=== PATIENT | male | born 1965 | race Caucasian/White ===

== ENCOUNTER 2016-05-22 11:02 | Day surgery (SDC) | payer BC ==
[2016-05-20 08:47] VITALS: BMI 28.3
[~2016-05-22 11:02] MED LIST: LACTATED RINGERS 1,000 ML IV SCH; LIDOCAINE 1% 20 ML VIAL (10MG/ML) FOR IV START INTRADERMA PRN
[2016-05-22 12:41] VITALS: TEMP 97.1
[2016-05-22] MEDS ORDERED: PROPOFOL 10 MG/ML 20 ML VIAL IV ONE (13:24)
--- NOTE | 2016-05-22 13:58 | P.PCN ---
Date of Procedure: 05/22/16 Procedure(s) Performed: Procedure: Total colonoscopy. Preoperative diagnosis: Screening for neoplasia, patient has family history of colon cancer and history of polyps. Postoperative diagnosis: Mild diverticulosis. Preparation: HalfLytely prep. Sedation: Was provided by anesthesia. Brief clinical history: The patient is a 50-year-old male who is scheduled for this evaluation because of family history of colon cancer in his mother and personal history of polyps. His first exam with me was at around 3-4 years ago when he had polyps removed. His baseline exam was around age 41, prior to moving to this area, and that exam did not show any polyps. The patient is not having any abdominal complaints, bleeding or anemia. Procedure: With the patient on his left lateral decubitus position and after informed consent and adequate sedation, the perianal area was inspected and it did not show any fissures or fistulas. There were no masses felt on digital rectal examination. The Olympus CFQ 160L video colonoscope was then inserted in the rectum in the usual fashion and advanced to the cecum. There was occasional small diverticular orifices seen in the distal sigmoid and few small diverticular orifices seen scattered on the right side but there was no evidence of acute diverticulitis or strictures. The mucosa appeared healthy. No polyps or tumors were seen. I retroflexed the endoscope in the rectum before the endoscope was withdrawn. The patient tolerated the procedure well. Plan: The patient was reassured. Discussed dietary measures. He will follow up with you as planned and I recommended repeat exam in 5 years.
[2016-05-22 14:14] VITALS: BP 130/82; PULSE 56; RESP 18
== END 2016-05-22 14:55 | disposition home or self-care (01) ==
LOC: ORWHC2ENDO 11:02
DX: Z12.11 Encounter for screening for malignant neoplasm of colon (principal); K57.30 Diverticulosis of large intestine without perforation or abscess without bleeding; Z80.0 Family history of malignant neoplasm of digestive organs; Z86.010 Personal history of colon polyps; E78.5 Hyperlipidemia, unspecified; Z79.899 Other long term (current) drug therapy; Z88.5 Allergy status to narcotic agent
CPT/HCPCS: J2704; G0105

== ENCOUNTER → 2016-12-04 | Outpatient (CLI) | payer BC ==
--- NOTE | 2016-12-04 11:37 | CT ---
EXAMINATION TYPE: CT abdomen pelvis wo con DATE OF EXAM: 12/04/2016 COMPARISON: NONE HISTORY: flank pain, hematuria, renal colic CT DLP: 647.7 mGycm Automated exposure control for dose reduction was used. TECHNIQUE: Helical acquisition of images was performed from the lung bases through the pelvis. FINDINGS: Lack of intravenous and oral contrast limits evaluation for the hollow and solid viscera. LUNG BASES: Minimal subsegmental bibasilar atelectasis, right greater than left is appreciated. LIVER/GB: Unremarkable unenhanced morphology. No radiopaque gallstones. PANCREAS: No significant abnormality is seen. SPLEEN: No significant abnormality is seen. ADRENALS: No significant abnormality is seen. KIDNEYS: No evidence of nephrolithiasis or obstructive uropathy. However, there is mild right periure teral fat stranding and suggestion of uroepithelial thickening, limited by overlap anteriorly of the right renal vein and lack of intravenous contrast. This is seen on series 3 image 58 with suggestion of thickening approximately 4 mm that is asymmetric to the left with mild inflammatory stranding. FREE AIR: No free air is visualized RETROPERITONEAL ADENOPATHY: None visualized REPRODUCTIVE ORGANS: Prostate gland is enlarged and heterogenous containing dystrophic calcifications within the central zone. Prostate gland measures at least 5.0 cm. Bilateral fat filled inguinal bill ias are also seen. No superficial inguinal adenopathy is present adjacent to this. URINARY BLADDER: No significant abnormality is seen. PELVIC ADENOPATHY: None visualized. OSSEOUS STRUCTURES: Benign vertebral body hemangioma is seen at L4 as well as smaller vertebral body hemangiomas at T12 and L2. Degenerative disc disease is seen at L5-S1 resulting in at least mild to moderate bilateral neural foraminal stenosis. BOWEL: Sigmoid diverticulosis is present without pericolonic fat stranding to suggest diverticulitis . Appendix is located within the pelvis and is within normal limits of size, partially air-filled. OTHER: Small fat filled umbilical hernia is noted. Minimal calcific atheromatous changes are seen in the abdominal aorta and its branches. Distal abdominal aorta is tortuous as is the right common iliac artery without measurable aneurysm. IMPRESSION: 1. NO EVIDENCE OF HYDRONEPHROSIS OR NEPHROLITHIASIS. THERE IS SUGGESTION OF RIGHT PROXIMAL URETERAL M ILD UROEPITHELIAL THICKENING AND MINIMAL PERIURETERAL FAT STRANDING. CT UROGRAM IS RECOMMENDED FOR FU RTHER EVALUATION TO EVALUATE FOR TRUE UROEPITHELIAL THICKENING VERSUS INCOMPLETE DISTENTION/PERISTALS IS ARTIFACT. 2. ENLARGED AND HETEROGENOUS PROSTATE GLAND.
== END | disposition home or self-care (01) ==
LOC: RADCTMAIN 10:41
PROVIDERS: ATTEND Family Medicine
DX: N40.0 Benign prostatic hyperplasia without lower urinary tract symptoms (principal); N23 Unspecified renal colic
CPT/HCPCS: 74176

== ENCOUNTER → 2016-12-05 | Outpatient (CLI) | payer BC | END | disposition home or self-care (01) | LOC: LABWHC1 10:45 | PROVIDERS: ATTEND Nurse Practitioner Adult Health | DX: R06.00 Dyspnea, unspecified (principal) | CPT/HCPCS: 36415; 83874; 84484; 85379 ==

== ENCOUNTER → 2020-01-25 | Outpatient (CLI) | payer BC ==
[2020-01-25 13:09] LABS: Creatine Kinase MB 1.4 ng/mL (0.0-2.4); Troponin I <0.012 ng/mL (0.000-0.034)
== END | disposition home or self-care (01) ==
LOC: LABWHC1 12:13
PROVIDERS: ATTEND Physician Assistant
DX: R07.9 Chest pain, unspecified (principal)
CPT/HCPCS: 36415; 82550; 82553; 84484

== ENCOUNTER 2020-04-01 10:04 | Inpatient (IN) | payer BC ==
[2020-04-01] MEDS ORDERED: IPRATROPIUM-ALBUTEROL 3 ML NEB INHALATION STA (10:19)
--- NOTE | 2020-04-01 10:26 | ED ---
SOB HPI - General Chief Complaint: Shortness of Breath Stated Complaint: Covid +, 9 days ago Time Seen by Provider: 04/01/20 10:11 Source: patient, RN notes reviewed Mode of arrival: ambulatory Limitations: no limitations - History of Present Illness Initial Comments: This is a 54-year-old male with a history of childhood asthma who states that he was diagnosed with Covid 19 9 days ago, outpatient who states he has been on a treatment protocol beginning progressively worse he is more short of breath has exertional dyspnea with any type of exertion including talking or walking he also is had fevers. He's tried home updrafts without any success. No overt chest pain. the patient is a nonsmoker. He does not get exposed to fumes or anything else. Doesn't complain of modifying factors MD Complaint: shortness of breath - Related Data Home Medications Medication Instructions Recorded Confirmed Aspirin [Adult Low Dose Aspirin EC] 81 mg PO DAILY 05/20/16 04/01/20 Albuterol Sulfate [Proair Hfa] 2 puff INHALATION RT-QID PRN 04/01/20 04/01/20 Lisinopril [Zestril] 10 mg PO DAILY 04/01/20 04/01/20 Sertraline HCl [Zoloft] 100 mg PO DAILY 04/01/20 04/01/20 Simvastatin [Zocor] 20 mg PO HS 04/01/20 04/01/20 Unknown Nebulizer Solution 1 dose INHALATION RT-DAILY PRN 04/01/20 04/01/20 Allergies Allergy/AdvReac Type Severity Reaction Status Date / Time Opioids - Morphine Analogues Allergy Nausea & Verified 04/01/20 10:45 Vomiting Review of Systems ROS Statement: Those systems with pertinent positive or pertinent negative responses have been documented in the HPI. ROS Other: All systems not noted in ROS Statement are negative. Past Medical History Past Medical History: Hyperlipidemia, Hypertension History of Any Multi-Drug Resistant Organisms: None Reported Past Surgical History: Orthopedic Surgery Additional Past Surgical History / Comment(s): rt shoulder arthroscopy, lt knee arthroscopy x2, rt knee arthroscopy, lt foot surgery x2 Past Anesthesia/Blood Transfusion Reactions: No Reported Reaction Past Psychological History: PTSD Smoking Status: Never smoker Past Alcohol Use History: None Reported Past Drug Use History: None Reported - Past Family History Mother Family Medical History: Cancer Additional Family Medical History / Comment(s): colon cancer with metastasis Father Family Medical History: Cancer Additional Family Medical History / Comment(s): oat cell cancer lung General Exam - General Exam Comments Initial Comments: this is a well-developed well-nourished awake alert oriented times 3 male Limitations: no limitations General appearance: alert, anxious ENT exam: Present: mucous membranes dry Respiratory exam: Present: decreased breath sounds Cardiovascular Exam: Present: regular rate, tachycardia Course Vital Signs 04/01/20 04/01/20 04/01/20 10:05 10:08 11:08 Temperature 100.8 F H Pulse Rate 104 H 85 Respiratory 24 20 20 Rate Blood Pressure 129/67 122/88 O2 Sat by Pulse 89 L 95 Oximetry 04/01/20 04/01/20 12:00 13:05 Temperature 102.8 F H Pulse Rate 85 80 Respiratory 20 20 Rate Blood Pressure 107/52 O2 Sat by Pulse 95 93 L Oximetry Medical Decision Making - Medical Decision Making I did discuss findings with the patient and with Dr. Barrett, patient will be admitted for inpatient treatment. Dr. Weaver will be consulted - Lab Data Result diagrams: 04/01/20 10:30 04/01/20 10:30 Lab Results 04/01/20 04/01/20 04/01/20 Range/Units 10:30 10:30 10:30 WBC 10.1 (3.8-10.6) k/uL RBC 5.10 (4.30-5.90) m/uL Hgb 16.6 (13.0-17.5) gm/dL Hct 48.4 (39.0-53.0) % MCV 94.8 (80.0-100.0) fL MCH 32.5 (25.0-35.0) pg MCHC 34.3 (31.0-37.0) g/dL RDW 12.3 (11.5-15.5) % Plt Count 165 (150-450) k/uL MPV 6.9 Neutrophils % 89 % Lymphocytes % 6 % Monocytes % 4 % Eosinophils % 0 % Basophils % 1 % Neutrophils # 8.9 H (1.3-7.7) k/uL Lymphocytes # 0.6 L (1.0-4.8) k/uL Monocytes # 0.4 (0-1.0) k/uL Eosinophils # 0.0 (0-0.7) k/uL Basophils # 0.1 (0-0.2) k/uL PT 10.8 (9.0-12.0) sec INR 1.0 (<1.2) APTT 22.5 (22.0-30.0) sec D-Dimer 0.71 H (<0.60) mg/L FEU Sodium 139 (137-145) mmol/L Potassium 4.4 (3.5-5.1) mmol/L Chloride 102 (98-107) mmol/L Carbon Dioxide 28 (22-30) mmol/L Anion Gap 9 mmol/L BUN 26 H (9-20) mg/dL Creatinine 1.00 (0.66-1.25) mg/dL Est GFR (CKD-EPI)AfAm >90 (>60 ml/min/1.73 sqM) Est GFR (CKD-EPI)NonAf 86 (>60 ml/min/1.73 sqM) Glucose 98 (74-99) mg/dL Plasma Lactic Acid Kenny (0.7-2.0) mmol/L Calcium 9.1 (8.4-10.2) mg/dL Magnesium 1.7 (1.6-2.3) mg/dL Total Bilirubin 0.8 (0.2-1.3) mg/dL AST 44 (17-59) U/L ALT 59 H (4-49) U/L Alkaline Phosphatase 66 (38-126) U/L Lactate Dehydrogenase 1141 H (313-618) U/L Creatine Kinase 41 L (55-170) U/L Troponin I (0.000-0.034) ng/mL C-Reactive Protein 56.2 H (<10.0) mg/L NT-Pro-B Natriuret Pep pg/mL Total Protein 7.0 (6.3-8.2) g/dL Albumin 3.8 (3.5-5.0) g/dL 04/01/20 04/01/20 04/01/20 Range/Units 10:30 10:30 10:30 WBC (3.8-10.6) k/uL RBC (4.30-5.90) m/uL Hgb (13.0-17.5) gm/dL Hct (39.0-53.0) % MCV (80.0-100.0) fL MCH (25.0-35.0) pg MCHC (31.0-37.0) g/dL RDW (11.5-15.5) % Plt Count (150-450) k/uL MPV Neutrophils % % Lymphocytes % % Monocytes % % Eosinophils % % Basophils % % Neutrophils # (1.3-7.7) k/uL Lymphocytes # (1.0-4.8) k/uL Monocytes # (0-1.0) k/uL Eosinophils # (0-0.7) k/uL Basophils # (0-0.2) k/uL PT (9.0-12.0) sec INR (<1.2) APTT (22.0-30.0) sec D-Dimer (<0.60) mg/L FEU Sodium (137-145) mmol/L Potassium (3.5-5.1) mmol/L Chloride (98-107) mmol/L Carbon Dioxide (22-30) mmol/L Anion Gap mmol/L BUN (9-20) mg/dL Creatinine (0.66-1.25) mg/dL Est GFR (CKD-EPI)AfAm (>60 ml/min/1.73 sqM) Est GFR (CKD-EPI)NonAf (>60 ml/min/1.73 sqM) Glucose (74-99) mg/dL Plasma Lactic Acid Kenny 1.5 (0.7-2.0) mmol/L Calcium (8.4-10.2) mg/dL Magnesium (1.6-2.3) mg/dL Total Bilirubin (0.2-1.3) mg/dL AST (17-59) U/L ALT (4-49) U/L Alkaline Phosphatase (38-126) U/L Lactate Dehydrogenase (313-618) U/L Creatine Kinase (55-170) U/L Troponin I <0.012 (0.000-0.034) ng/mL C-Reactive Protein (<10.0) mg/L NT-Pro-B Natriuret Pep 392 pg/mL Total Protein (6.3-8.2) g/dL Albumin (3.5-5.0) g/dL - EKG Data -: EKG Interpreted by Me EKG Comments: sinus rhythm a 91 appear interval 138 QRS duration 90 QT since QTC 380/391 left exodeviation evidence of LVH. - Radiology Data Radiology results: report reviewed (Did review the imaging and report evidence of bilateral infiltrates consistent with viral infection/pneumonitis. No evidence of PE at this time.), image reviewed Disposition Clinical Impression: COVID-19, Viral pneumonia, Hypoxemia, Febrile illness, acute, Failure of out patient treatment Disposition: ADMITTED IP TO THIS [facility] Condition: Fair Referrals: Valente Taylor MD [Primary Care Provider] - 1-2 days
[2020-04-01 10:45] LABS: Basophils # (A) 0.1 k/uL (0-0.2); Basophils % (A) 1 %; Eosinophils % (A) 0 %; HCT 48.4 % (39.0-53.0); HGB 16.6 gm/dL (13.0-17.5); Lymphocytes # (A) 0.6 k/uL (1.0-4.8); Lymphocytes % (A) 6 %; MCH 32.5 pg (25.0-35.0); MCHC 34.3 g/dL (31.0-37.0); MCV 94.8 fL (80.0-100.0); Mean Platelet Volume 6.9; Monocytes # (A) 0.4 k/uL (0-1.0); Monocytes % (A) 4 %; Neutrophils # (A) 8.9 k/uL (1.3-7.7); Neutrophils % (A) 89 %; Platelet Count 165 k/uL (150-450); RDW 12.3 % (11.5-15.5); WBC 10.1 k/uL (3.8-10.6)
[2020-04-01 10:58] LABS: Partial Thromboplastin Time 22.5 sec (22.0-30.0); Prothrombin Time 10.8 sec (9.0-12.0)
[2020-04-01] MEDS ORDERED: ALBUTEROL HFA INHALER INHALATION ONE (11:00)
[2020-04-01 11:01] LABS: ALT 59 U/L (4-49); AST 44 U/L (17-59); African American GFR (CKD) >90 (>60 ml/min/1.73 sqM); Albumin 3.8 g/dL (3.5-5.0); Alkaline Phosphatase 66 U/L (38-126); Anion Gap 9 mmol/L; Blood Urea Nitrogen 26 mg/dL (9-20); C Reactive Protein 56.2 mg/L (<10.0); Calcium 9.1 mg/dL (8.4-10.2); Carbon Dioxide 28 mmol/L (22-30); Chloride 102 mmol/L (98-107); Creatine Kinase 41 U/L (55-170); Glucose 98 mg/dL (74-99); LDH 1141 U/L (313-618); Magnesium 1.7 mg/dL (1.6-2.3); Non-African American GFR(CKD) 86 (>60 ml/min/1.73 sqM); Potassium 4.4 mmol/L (3.5-5.1); Sodium 139 mmol/L (137-145); Total Bilirubin 0.8 mg/dL (0.2-1.3)
[2020-04-01 11:03] LABS: D-Dimer 0.71 mg/L FEU (<0.60)
--- NOTE | 2020-04-01 11:04 | XR ---
EXAMINATION TYPE: XR chest 2V DATE OF EXAM: 04/01/2020 COMPARISON: NONE HISTORY: Shortness of breath and fever TECHNIQUE: Frontal and lateral views of the chest are obtained. FINDINGS: Bilateral airspace disease is present. No pneumothorax or pleural effusion. Cardiac medias tinal silhouette is within normal limits. IMPRESSION: Correlate for pneumonia, follow-up recommended.
[2020-04-01] MEDS ORDERED: ACETAMINOPHEN TAB 500 MG TAB PO STA (12:07)
--- NOTE | 2020-04-01 12:55 | CT ---
EXAMINATION TYPE: CT angio chest DATE OF EXAM: 04/01/2020 COMPARISON: Chest x-ray same date HISTORY: shortness of breath, fever and cough CT DLP: 639.2 mGycm Automated exposure control for dose reduction was used. CONTRAST: CTA scan of the thorax is performed with IV Contrast, patient injected with 100 mL of Isovue 370, pul monary embolism protocol. MIP images are created and reviewed. 3D reconstructed images are created on an independent workstation and reviewed. FINDINGS: LUNGS: The lungs are remarkable for diffuse groundglass opacities which are largely peripheral, there is no concerning parenchymal mass or nodule identified. There is no pleural effusion or pneumothor ax seen. The tracheobronchial tree is patent. AORTA: No additional significant abnormality is seen. MEDIASTINUM: There is satisfactory enhancement of the pulmonary artery and its branches, there is no CT evidence for pulmonary embolism. There are no greater than 1 cm hilar or mediastinal lymph nodes. Some prevascular nodes are present. No pericardial effusion is seen. OTHER: No additional significant abnormality is seen. IMPRESSION: CORRELATE FOR PNEUMONIA, CONSIDER COVID-19 INFECTION
[2020-04-01] MEDS ORDERED: PNEUMONIA PROTOCOL UTILIZED 1 EACH MISC PO PRN (14:14)
[2020-04-01] MEDS ORDERED: SODIUM CHLORIDE 0.9% 1,000 ML IV SCH (14:15)
[2020-04-01] MEDS ORDERED: DEXAMETHASONE SOD PHOSPHATE 4 MG/ML 1 ML VIAL IV STA (14:17)
[2020-04-01] MEDS ORDERED: NALOXONE 0.4 MG/ML 1 ML VIAL IV PRN (15:00)
[2020-04-01] MEDS ORDERED: ONDANSETRON 4 MG/2 ML VIAL IVP PRN (15:00)
[2020-04-01] MEDS ORDERED: IPRATROPIUM-ALBUTEROL 3 ML NEB INHALATION PRN (15:03)
[2020-04-01] MEDS ORDERED: ALBUTEROL HFA INHALER INHALATION PRN (15:05)
--- NOTE | 2020-04-01 15:07 | P.HPIM ---
History of Present Illness H&P Date: 04/01/20 Chief Complaint: dyspnea 54 year old man with history of HTN/HLD, mood disorder, childhood asthma presented for evaluation of worsening cough, dypsnea. 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 Pt says that at the time he was diagnosed he was started on steroid, Zn, Vit C/D, famotidine, and allowed to self quarantine, however, he became progressively more weak with additional symptoms of cough, fevers, chills, sweats, YOUSUF, myalgias, generalized weakness. His took his pulse oximeter reading at home and he was 88% on room air, prompting evaluation in the ER. ROS is otherwise negative for chest pain, palps, syncope/presyncope, abd pain, diarrhea, dysuria, dyschezia, numbness of extremities. In the ER, patient was febrile to 102.8, 119/63, requiring 2L NC for O2 saturation of 93%. On chemistries, he's noted to have elevated LDH to 1141, CRP to 56.2. CXR and CTA demonstrate diffuse GGO and pulmonary opacities concerning for atypical pneumonia. CTA negative for PE. EKG shows NSR with left axis deviation, and LVH. Review of Systems All Systems reviewed and pertinent positives and negatives noted in HPI, all other symptoms are negative Past Medical History Past Medical History: Hyperlipidemia, Hypertension History of Any Multi-Drug Resistant Organisms: None Reported Past Surgical History: Orthopedic Surgery Additional Past Surgical History / Comment(s): rt shoulder arthroscopy, lt knee arthroscopy x2, rt knee arthroscopy, lt foot surgery x2 Past Anesthesia/Blood Transfusion Reactions: No Reported Reaction Past Psychological History: PTSD Smoking Status: Never smoker Past Alcohol Use History: None Reported Past Drug Use History: None Reported - Past Family History Mother Family Medical History: Cancer Additional Family Medical History / Comment(s): colon cancer with metastasis Father Family Medical History: Cancer Additional Family Medical History / Comment(s): oat cell cancer lung Medications and Allergies Home Medications Medication Instructions Recorded Confirmed Type Aspirin [Adult Low Dose Aspirin EC] 81 mg PO DAILY 05/20/16 04/01/20 History Albuterol Sulfate [Proair Hfa] 2 puff INHALATION RT-QID PRN 04/01/20 04/01/20 History Lisinopril [Zestril] 10 mg PO DAILY 04/01/20 04/01/20 History Sertraline HCl [Zoloft] 100 mg PO DAILY 04/01/20 04/01/20 History Simvastatin [Zocor] 20 mg PO HS 04/01/20 04/01/20 History Unknown Nebulizer Solution 1 dose INHALATION RT-DAILY PRN 04/01/20 04/01/20 History Allergies Allergy/AdvReac Type Severity Reaction Status Date / Time Opioids - Morphine Analogues Allergy Nausea & Verified 04/01/20 10:45 Vomiting Physical Exam Osteopathic Statement: *. No significant issues noted on an osteopathic structural exam other than those noted in the History and Physical/Consult. Vitals: Vital Signs Temp Pulse Resp BP Pulse Ox 04/01/20 14:27 98.7 F 65 20 119/63 96 04/01/20 13:05 102.8 F H 80 20 107/52 93 L 04/01/20 12:00 85 20 95 04/01/20 11:08 85 20 122/88 95 04/01/20 10:08 20 04/01/20 10:05 100.8 F H 104 H 24 129/67 89 L Intake and Output 03/31/20 04/01/20 04/01/20 22:59 06:59 14:59 Other: Weight 111.13 kg Gen: awake, alert HEENT: normocephalic, atraumatic, good hearing acuity, moist mucous membranes Resp: good air exchange, breathing comfortably with no accessory muscle use, bilateral posterior crackles in the mid lung olson, no wheezes CVS: good distal perfusion x 4, regular rate and rhythm without murmurs GI: soft, NTTP, ND : no SPT, no CVAT, adler catheter not present MSK: no pitting edema, no clubbing Neuro: non-focal, moving all extremities Psych: cooperative, euthymic mood Results CBC & Chem 7: 04/01/20 10:30 04/01/20 10:30 Labs: Abnormal Lab Results - Last 24 Hours (Table) 04/01/20 04/01/20 04/01/20 Range/Units 10:30 10:30 10:30 Neutrophils # 8.9 H (1.3-7.7) k/uL Lymphocytes # 0.6 L (1.0-4.8) k/uL D-Dimer 0.71 H (<0.60) mg/L FEU BUN 26 H (9-20) mg/dL ALT 59 H (4-49) U/L Lactate Dehydrogenase 1141 H (313-618) U/L Creatine Kinase 41 L (55-170) U/L C-Reactive Protein 56.2 H (<10.0) mg/L Assessment and Plan Assessment: 1. ARDS from COVID 19 Pneumonia 2. Acute Hypoxemic Respiratory Failure 3. Hypertension, essential 4. Hyperlipidemia 5. Asthma without exacerbation 6. Mood Disorder 54 year old man with history of HTN/HLD, asthma, mood disorder who was recently diagnosed with COVID 19 nine days ago presented to the ER with increasing cough, dyspnea, and generalized constitutional symptoms with evidence of multifocal pulmonary opacities and GGO on chest imaging concerning for impending ARDS from COVID 19. Plan: - admit to telemetry, contact, droplet precautions - oxygen PRN - re-start dexamethasone 6mg IV daily - Vit C/D, Zn, Famotidine - albuterol/ipratropium inh q2h PRN - daily CBC, CMP, Mg, CRP, D-Dimer, LDH, Ferritin, Procal - hold off on anti-biotics at this time, low suspicion of superimposed bacterial pneumonia - pulmonary consult re: remdesivir, plasma (likely outside benefit window) - continue home lisinopril, simvastatin - continue home sertraline Full Code enoxaparin 40mg SQ for DVT PPx
[2020-04-01] MEDS: ALBUTEROL HFA INHALER INHALATION SCH ×3 (16:04→23:21)
[2020-04-01] MEDS: ACETAMINOPHEN TAB 325 MG TAB PO PRN (17:07)
[2020-04-01] MEDS: ATORVASTATIN 10 MG TAB PO SCH (20:04)
[2020-04-01] MEDS: FAMOTIDINE 20 MG TAB PO SCH (20:04)
[2020-04-01] MEDS: SERTRALINE 100 MG TAB PO SCH (20:13)
[2020-04-02] MEDS: ALBUTEROL HFA INHALER INHALATION SCH ×5 (04:05→19:46)
[2020-04-02 06:49] LABS: Basophils % (A) 0 %; Eosinophils % (A) 0 %; HCT 42.1 % (39.0-53.0); HGB 14.2 gm/dL (13.0-17.5); Lymphocytes # (A) 0.5 k/uL (1.0-4.8); Lymphocytes % (A) 8 %; MCH 32.2 pg (25.0-35.0); MCHC 33.7 g/dL (31.0-37.0); MCV 95.3 fL (80.0-100.0); Mean Platelet Volume 7.2; Monocytes # (A) 0.3 k/uL (0-1.0); Monocytes % (A) 4 %; Neutrophils # (A) 5.7 k/uL (1.3-7.7); Neutrophils % (A) 86 %; Platelet Count 141 k/uL (150-450); RBC 4.42 m/uL (4.30-5.90); WBC 6.6 k/uL (3.8-10.6)
[2020-04-02] MEDS: ASCORBIC ACID 500 MG TAB PO SCH (08:47)
[2020-04-02] MEDS: lisinopriL 10 MG TAB PO SCH (08:47)
[2020-04-02] MEDS: ASPIRIN 81 MG PO SCH (08:47)
[2020-04-02] MEDS: FAMOTIDINE 20 MG TAB PO SCH ×2 (08:47→21:22)
[2020-04-02] MEDS: CHOLECALCIFEROL 25 MCG (1000 IU) TABLET PO SCH (08:47)
[2020-04-02] MEDS: ENOXAPARIN 40 MG/0.4 ML SYRINGE SQ SCH (08:48)
[2020-04-02] MEDS: ZINC SULFATE 220 MG CAP PO SCH (08:48)
[2020-04-02 08:53] LABS: African American GFR (CKD) 124.9 (60.0-200.0); Albumin 3.3 g/dL (3.80-4.90); Albumin/Globulin Ratio 1.83 (1.60-3.17); Anion Gap 3.5 mmol/L (4.00-12.00); BUN/Creat Ratio 31.43 Ratio (12.00-20.00); C Reactive Protein 6.4 mg/dL (0.0-0.8); Calcium 7.9 mg/dL (8.7-10.3); Carbon Dioxide 26.5 mmol/L (21.6-31.8); Ferritin 918.6 ng/mL (22.0-322.0); Globulin 1.8 g/dL (1.6-3.3); Magnesium 1.7 mg/dL (1.5-2.4); Non-African American GFR(CKD) 107.7 (60.0-200.0); Potassium 4.2 mmol/L (3.5-5.5); Total Bilirubin 0.5 mg/dL (0.3-1.2); Total Protein 5.1 g/dL (6.2-8.2)
[2020-04-02] MEDS ORDERED: DEXAMETHASONE SOD PHOSPHATE 10 MG/ML 1 ML VIAL IV SCH (09:00)
[2020-04-02] MEDS ORDERED: SERTRALINE 100 MG TAB PO SCH (09:00)
[2020-04-02] MEDS: ACETAMINOPHEN TAB 325 MG TAB PO PRN (13:24)
[2020-04-02] MEDS: COLCHICINE 0.6 MG EACH PO SCH ×2 (13:25→21:22)
--- NOTE | 2020-04-02 13:43 | P.CNPUL ---
History of Present Illness Consult date: 04/02/20 Requesting physician: Ryann Barrett Reason for consult: dyspnea, cough, hypoxemia, pneumonia, abnormal CXR/CT Chief complaint: Shortness of breath History of present illness: Pulmonary consult dated 04/02/2020. This is a 54-year-old male seen today, on April 02, for shortness of breath, a nd COVID 19 pneumonia. The patient hasn't been feeling well for about 10 or 11 days. He tested positive a number of days ago, about 10, but was basically just using breathing treatments at home, as well as fwxs-pol-jgnthxy medications. His who is a respiratory therapist also was positive for the virus. More recently, he started having greater shortness of breath, especially on exertion. In addition, he did have some chest tightness, cough, with minimal phlegm production. He also had high temperatures up to 103. For that reason, he came into the hospital to be evaluated. His chest x-ray and a CT angiogram were both abnormal. The patient's medications currently include convalescent plasma, Decadron, vitamin C, vitamin D3, zinc, melatonin, Pepcid, and colchicine. He is not a candidate for remdesivir. He has a history of hyperlipidemia, and hypertension. He is a lifelong nonsmoker. Currently, the patient's on 2-3 L nasal cannula. He seems reasonably comfortable. Review of Systems REVIEW OF SYSTEMS: CONSTITUTIONAL: Fever, up to 103.] NEUROLOGIC: [ Negative.] HEENT: [ Negative.] CARDIAC: [Negative.] PULMONARY: Shortness of breath and cough. GI: [Negative.] : [Negative.] RHEUMATOLOGIC: [ Negative.] IMMUNOLOGIC: [ Negative.] ENDOCRINE: [Negative. ] DERMATOLOGIC: [Negative.] Past Medical History Past Medical History: Hyperlipidemia, Hypertension History of Any Multi-Drug Resistant Organisms: None Reported Past Surgical History: Orthopedic Surgery Additional Past Surgical History / Comment(s): rt shoulder arthroscopy, lt knee arthroscopy x2, rt knee arthroscopy, lt foot surgery x2 Past Anesthesia/Blood Transfusion Reactions: No Reported Reaction Past Psychological History: PTSD Smoking Status: Never smoker Past Alcohol Use History: None Reported Past Drug Use History: None Reported - Past Family History Mother Family Medical History: Cancer Additional Family Medical History / Comment(s): colon cancer with metastasis Father Family Medical History: Cancer Additional Family Medical History / Comment(s): oat cell cancer lung Medications and Allergies Home Medications Medication Instructions Recorded Confirmed Type Aspirin [Adult Low Dose Aspirin EC] 81 mg PO DAILY 05/20/16 04/01/20 History Albuterol Sulfate [Proair Hfa] 2 puff INHALATION RT-QID PRN 04/01/20 04/01/20 History Lisinopril [Zestril] 10 mg PO DAILY 04/01/20 04/01/20 History Sertraline HCl [Zoloft] 100 mg PO DAILY 04/01/20 04/01/20 History Simvastatin [Zocor] 20 mg PO HS 04/01/20 04/01/20 History Unknown Nebulizer Solution 1 dose INHALATION RT-DAILY PRN 04/01/20 04/01/20 History Allergies Allergy/AdvReac Type Severity Reaction Status Date / Time Opioids - Morphine Analogues Allergy Nausea & Verified 04/01/20 10:45 Vomiting Physical Exam Osteopathic Statement: *. No significant issues noted on an osteopathic structural exam other than those noted in the History and Physical/Consult. Vitals: Vital Signs Temp Pulse Pulse Resp BP BP Pulse Ox 04/02/20 09:20 98.3 F 54 L 18 131/75 94 L 04/02/20 04:58 97.6 F 51 L 15 109/55 94 L 04/02/20 01:43 97.5 F L 55 L 15 135/82 99 04/01/20 21:57 98.1 F 71 15 109/58 93 L 04/01/20 19:50 16 04/01/20 16:15 98.8 F 62 18 119/73 96 04/01/20 14:27 98.7 F 65 20 119/63 96 Intake and Output 04/01/20 04/02/20 04/02/20 22:59 06:59 14:59 Intake Total 240 1500 Balance 240 1500 Intake: Intake, IV Titration 1200 Amount Sodium Chloride 0.9% 1, 1200 000 ml @ 100 mls/hr IV . Q10H [facility] Rx#:[id number] Oral 240 300 Other: Voiding Method Toilet Weight 111.13 kg No acute distress, oriented 3. Nasal O2 in place at 2 L/m. No evidence of conversational dyspnea, use of accessory muscles, or audible wheezing. HEENT examination is grossly unremarkable. Mucous membranes are moist. No oral lesions. Neck supple. Full range of motion. No adenopathy thyromegaly or neck vein distention. Cardiovascular examination reveals regular rhythm rate. S1-S2 normal. No S3 or S4. No discernible murmur noted. Heart sounds are distant. Lungs reveal coarse bilateral rhonchi and a few scattered crackles. There are no wheezes. Breath sounds equal bilaterally. He coughs on deep inspiration. Abdomen soft bowel sounds are heard. No masses or tenderness. Extremities are intact. No cyanosis clubbing or edema. Skin is without rash or lesion. Neurologic examination is brief but nonfocal. Results - Laboratory Findings CBC and BMP: 04/02/20 06:23 04/02/20 06:23 PT/INR, D-dimer PT 10.8 sec (9.0-12.0) 04/01/20 10:30 INR 1.0 (<1.2) 04/01/20 10:30 D-Dimer 0.62 mg/L FEU (<0.60) H 04/02/20 06:23 Abnormal lab findings: Abnormal Labs 04/01/20 04/01/20 04/01/20 10:30 10:30 10:30 Plt Count Neutrophils # 8.9 H Lymphocytes # 0.6 L D-Dimer 0.71 H Chloride Anion Gap BUN 26 H BUN/Creatinine Ratio Calcium Ferritin 1349.0 H ALT 59 H Lactate Dehydrogenase 1141 H Creatine Kinase 41 L C-Reactive Protein 56.2 H Total Protein Albumin Procalcitonin 04/01/20 04/02/20 04/02/20 10:30 06:23 06:23 Plt Count 141 L Neutrophils # Lymphocytes # 0.5 L D-Dimer Chloride Anion Gap BUN BUN/Creatinine Ratio Calcium Ferritin ALT Lactate Dehydrogenase Creatine Kinase C-Reactive Protein Total Protein Albumin Procalcitonin 0.21 H 0.30 H 04/02/20 04/02/20 06:23 06:23 Plt Count Neutrophils # Lymphocytes # D-Dimer 0.62 H Chloride 111 H Anion Gap 3.50 L BUN BUN/Creatinine Ratio 31.43 H Calcium 7.9 L Ferritin 918.6 H ALT 65 H Lactate Dehydrogenase 304 H Creatine Kinase C-Reactive Protein 6.4 H Total Protein 5.1 L Albumin 3.30 L Procalcitonin - Diagnostic Findings Chest x-ray: image reviewed CT scan - chest: image reviewed Assessment and Plan Assessment: Acute hypoxemic respiratory failure secondary to COVID 19 pneumonia/pneumonitis. History of hypertension. History of hyperlipidemia. Lifelong nonsmoker. History of mild asthma. History of depression. Plan: Plan dated 04/02/2020. The patient is outside the window for remdesivir. The patient can get, some plasma, either one or 2 doses. In addition, the patient should get Decadron 6 mg a day either orally or IV for 10 days, vitamin C, vitamin D3, and zinc. In addition, an albuterol inhaler as appropriate. The patient will also get Pepcid and melatonin as well as colchicine 0.6 mg twice a day. Additional recommendations and suggestions are forthcoming. We will continue to follow closely. We'll also monitor inflammatory markers. The patient's chronic me dical problems such as hypertension and hyperlipidemia will be treated aggressively. No need for antibiotics at this time. We'll continue to evaluate oxygen saturations and titrate oxygen appropriately. No additional recommendations are made and prognosis is guarded. Time with Patient: Greater than 30
[2020-04-02] MEDS: dexAMETHasone 2 MG TAB PO SCH (17:34)
--- NOTE | 2020-04-02 19:38 | P.PN ---
Subjective Progress Note Date: 04/02/20 (beth charting seen at 1520) Principal diagnosis: shortness of breath Patient is a 54-year-old male with hypertension, dyslipidemia, mood disorder, and childhood asthma who presented to the emergency department with worsening cough and dyspnea. Patient had been diagnosed with COVID 19 9 days ago after his who is a respiratory therapist developed symptoms. At that point in time he was started on steroids, zinc, vitamin C and D, and famotidine. He became significantly more weak with increased symptoms and his room air pulse ox at home was 88% and he therefore presented to the ER. In the ER he underwent an extensive evaluation. Her initial vital signs showed a temperature of 100.8, pulse of 104, and pulse ox 89% on room air. Chest x-ray showed bilat eral airspace disease. CT of the chest did not demonstrate any pulmonary embolism but did again show pneumonia consistent with Covid 19 infection. He was admitted and continued on dexamethasone, vitamin C, vitamin D, zinc, Pepcid, and melatonin. Pulmonary was consulted. They felt he was out of the window for him to severe but did great with convalescent plasma. They also started him on colchicine. Patient seen and examined at bedside. He continues to feel short of breath, have a cough, and have some chest discomfort when coughing. He denies any nausea, vomiting, or diarrhea. He still reports poor oral intake. I offered to call his to update her however he declined. General: Ill-appearing, no distress, appears at stated age Derm: warm, dry Head: atraumatic, normocephalic, symmetric Eyes: EOMI, no lid lag, anicteric sclera Mouth: no lip lesion, mucus membranes moist Cardiovascular: S1S2 reg, no murmur, positive posterior tibial pulse bilateral, Lungs: Coarse breath sounds bilateral bilateral, no rhonchi, no rales , no accessory muscle use Abdominal: soft, nontender to palpation, no guarding, no appreciable organomegaly Ext: no gross muscle atrophy, no edema, no contractures Neuro: CN II-XI grossly intact, no focal neuro deficits Psych: Alert, oriented, appropriate affect Covid 19 pneumonia, acute hypoxic respiratory failure -Continue with vitamin C and D, zinc, famotidine, and dexamethasone and pulmonary recommendations: Convalescent plasma, colchicine -Continue to follow Covid labs -No antibiotics with low suspicion for superimposed bacterial pneumonia -Wean O2 as able Hypertension, controlled -Continue lisinopril -Follow blood pressures Dyslipidemia -Statin Thrombocytopenia -Suspect reactive -Follow CBC Chronic: Asthma without exacerbation Mood disorder DVT prophylaxis: Lovenox Discussed with: Patient, nursing. Offered to call however patient declined Anticipated discharge: 3-[address]: Home A total of 35 minutes was spent on the care of this complex patient more than 50% of the time was spent in counseling and care coordination. Objective - Vital Signs Vital signs: Vital Signs Temp 98.2 F 04/02/20 17:33 Pulse 56 L 04/02/20 17:33 Resp 18 04/02/20 17:33 BP 124/73 04/02/20 17:33 Pulse Ox 96 04/02/20 17:33 Intake & Output 04/01/20 04/02/20 04/02/20 18:59 06:59 18:59 Intake Total 240 1500 3000 Balance 240 1500 3000 Weight 111.13 kg Intake: Intake, IV Titration 1200 Amount Sodium Chloride 0.9% 1, 1200 000 ml @ 100 mls/hr IV . Q10H [facility] Rx#:[id number] Oral [id number] Blood Product 0 Ffp Pher Conval Covid19 0 Acda 2 Unit [id number] Other: Voiding Method Toilet # Voids 3 - Labs CBC & Chem 7: 04/02/20 06:23 04/02/20 06:23 Labs: Abnormal Lab Results - Last 24 Hours (Table) 04/02/20 04/02/20 04/02/20 Range/Units 06:23 06:23 06:23 Plt Count 141 L (150-450) k/uL Lymphocytes # 0.5 L (1.0-4.8) k/uL D-Dimer 0.62 H (<0.60) mg/L FEU Chloride (96-109) mmol/L Anion Gap (4.00-12.00) mmol/L BUN/Creatinine Ratio (12.00-20.00) Ratio Calcium (8.7-10.3) mg/dL Ferritin (22.0-322.0) ng/mL ALT (10-49) U/L Lactate Dehydrogenase (120-246) U/L C-Reactive Protein (0.0-0.8) mg/dL Total Protein (6.2-8.2) g/dL Albumin (3.80-4.90) g/dL Procalcitonin 0.30 H (0.02-0.09) ng/mL 04/02/20 Range/Units 06:23 Plt Count (150-450) k/uL Lymphocytes # (1.0-4.8) k/uL D-Dimer (<0.60) mg/L FEU Chloride 111 H (96-109) mmol/L Anion Gap 3.50 L (4.00-12.00) mmol/L BUN/Creatinine Ratio 31.43 H (12.00-20.00) Ratio Calcium 7.9 L (8.7-10.3) mg/dL Ferritin 918.6 H (22.0-322.0) ng/mL ALT 65 H (10-49) U/L Lactate Dehydrogenase 304 H (120-246) U/L C-Reactive Protein 6.4 H (0.0-0.8) mg/dL Total Protein 5.1 L (6.2-8.2) g/dL Albumin 3.30 L (3.80-4.90) g/dL Procalcitonin (0.02-0.09) ng/mL Microbiology - Last 24 Hours (Table) 04/01/20 10:10 Blood Culture - Preliminary Blood No Growth after 24 hours 04/01/20 10:30 Blood Culture - Preliminary Blood No Growth after 24 hours
[2020-04-02] MEDS: MELATONIN 5 MG TABLET PO SCH (21:22)
[2020-04-02] MEDS: ATORVASTATIN 10 MG TAB PO SCH (21:22)
[2020-04-02] MEDS: SERTRALINE 100 MG TAB PO SCH (21:22)
[2020-04-03] MEDS: ALBUTEROL HFA INHALER INHALATION SCH ×6 (00:02→19:58)
[2020-04-03] MEDS: ENOXAPARIN 40 MG/0.4 ML SYRINGE SQ SCH (09:05)
[2020-04-03] MEDS: ASCORBIC ACID 500 MG TAB PO SCH (09:05)
[2020-04-03] MEDS: COLCHICINE 0.6 MG EACH PO SCH ×2 (09:05→21:24)
[2020-04-03] MEDS: dexAMETHasone 2 MG TAB PO SCH (09:05)
[2020-04-03] MEDS: ZINC SULFATE 220 MG CAP PO SCH (09:05)
[2020-04-03] MEDS: ASPIRIN 81 MG PO SCH (09:05)
[2020-04-03] MEDS: lisinopriL 10 MG TAB PO SCH (09:05)
[2020-04-03] MEDS: FAMOTIDINE 20 MG TAB PO SCH ×2 (09:05→21:24)
[2020-04-03] MEDS: CHOLECALCIFEROL 25 MCG (1000 IU) TABLET PO SCH (09:05)
[2020-04-03 09:24] LABS: Basophils # (A) 0.01 X 10*3/uL (0.00-0.10); Basophils % (A) 0.1 %; Eosinophils # (A) 0 X 10*3/uL (0.04-0.35); Eosinophils % (A) 0 %; HGB 14.3 g/dL (13.0-17.0); Lymphocytes % (A) 7.6 %; MCH 32.1 pg (27.0-32.0); MCV 94.2 fL (80.0-97.0); Mean Platelet Volume 10.1 fL (9.5-12.2); Monocytes # (A) 0.38 X 10*3/uL (0.20-1.00); Monocytes % (A) 4.1 %; Neutrophils # (A) 8.04 X 10*3/uL (1.80-7.70); Neutrophils % (A) 87.5 %; Platelet Count 178 X 10*3/uL (140-440); RBC 4.46 X 10*6/uL (4.40-5.60); RDW 11.8 % (11.5-14.5); WBC 9.19 X 10*3/uL (4.50-10.00)
[2020-04-03 10:13] LABS: African American GFR (CKD) 124.9 (60.0-200.0); Albumin 3.7 g/dL (3.80-4.90); Albumin/Globulin Ratio 1.85 (1.60-3.17); BUN/Creat Ratio 28.57 Ratio (12.00-20.00); Calcium 8.9 mg/dL (8.7-10.3); Ferritin 1097.6 ng/mL (22.0-322.0); Magnesium 1.8 mg/dL (1.5-2.4); Non-African American GFR(CKD) 107.7 (60.0-200.0); Potassium 4.3 mmol/L (3.5-5.5); Total Bilirubin 0.5 mg/dL (0.3-1.2); Total Protein 5.7 g/dL (6.2-8.2)
--- NOTE | 2020-04-03 13:04 | P.PN ---
Subjective Progress Note Date: 04/03/20 (delayed charting seen at 0915) Principal diagnosis: shortness of breath Patient is a 54-year-old male with hypertension, dyslipidemia, mood disorder, and childhood asthma who presented to the emergency department with worsening cough and dyspnea. Patient had been diagnosed with COVID 19 9 days ago after his who is a respiratory therapist developed symptoms. At that point in time he was started on steroids, zinc, vitamin C and D, and famotidine. He became significantly more weak with increased symptoms and his room air pulse ox at home was 88% and he therefore presented to the ER. In the ER he underwent an extensive evaluation. Her initial vital signs showed a temperature of 100.8, pulse of 104, and pulse ox 89% on room air. Chest x-ray showed bilat eral airspace disease. CT of the chest did not demonstrate any pulmonary embolism but did again show pneumonia consistent with Covid 19 infection. He was admitted and continued on dexamethasone, vitamin C, vitamin D, zinc, Pepcid, and melatonin. Pulmonary was consulted. They felt he was out of the window for remdisivir but did order convalescent plasma. They also started him on colchicine. Patient seen and examined at bedside. He states he feels the same yesterday. He continues to have shortness of breath, cough, body aches, and fatigue. He denies any nausea or vomiting. Denies diarrhea. States he is eating and drinking well. General: Ill-appearing, no distress, appears at stated age Derm: warm, dry Head: atraumatic, normocephalic, symmetric Eyes: EOMI, no lid lag, anicteric sclera Mouth: no lip lesion, mucus membranes dry Cardiovascular: S1S2 reg, no murmur, positive posterior tibial pulse bilateral, Lungs: Coarse breath sounds bilateral bilateral, no rhonchi, no rales , no accessory muscle use Abdominal: soft, nontender to palpation, no guarding, no appreciable orga nomegaly Ext: no gross muscle atrophy, no edema, no contractures Neuro: CN II-XI grossly intact, no focal neuro deficits Psych: Alert, oriented, appropriate affect Covid 19 pneumonia, acute hypoxic respiratory failure -Continue with vitamin C and D, zinc, famotidine, and dexamethasone (started ) - pulmonary recommendations appreciated: Convalescent plasma administered 04/02, colchicine started 04/02 -Continue to follow Covid labs -No antibiotics with low suspicion for superimposed bacterial pneumonia -Wean O2 as able currently requiring 3 L Hypertension, controlled -Continue lisinopril -Follow blood pressures Dyslipidemia -Statin Thrombocytopenia -Suspect reactive -Follow CBC Chronic: Asthma without exacerbation Mood disorder DVT prophylaxis: Lovenox Discussed with: Patient, nursing. Anticipated discharge: 1-[address]: Home A total of 35 minutes was spent on the care of this complex patient more than 50% of the time was spent in counseling and care coordination. Objective - Vital Signs Vital signs: Vital Signs Temp 98.7 F 04/03/20 10:00 Pulse 60 04/03/20 10:00 Resp 18 04/03/20 10:00 BP 134/81 04/03/20 10:00 Pulse Ox 95 04/03/20 10:00 Intake & Output 04/02/20 04/03/20 04/03/20 18:59 06:59 18:59 Intake Total 3000 300 Balance 3000 300 Intake: Oral 3000 300 Blood Product 0 Ffp Pher Conval Covid19 0 Acda 2 Unit [id number] Other: Voiding Method Toilet Toilet # Voids 3 1 - Labs CBC & Chem 7: 04/03/20 05:39 04/03/20 05:39 Labs: Abnormal Lab Results - Last 24 Hours (Table) 04/03/20 04/03/20 04/03/20 Range/Units 05:39 05:39 05:39 MCH 32.1 H (27.0-32.0) pg Immature Gran # 0.06 H (0.00-0.04) X 10*3/uL Neutrophils # 8.04 H (1.80-7.70) X 10*3/uL Lymphocytes # 0.70 L (0.90-5.00) X 10*3/uL Eosinophils # 0 L (0.04-0.35) X 10*3/uL BUN/Creatinine Ratio 28.57 H (12.00-20.00) Ratio Glucose 117 H (70-110) mg/dL Ferritin 1097.6 H (22.0-322.0) ng/mL AST 75 H (14-35) U/L ALT 176 H (10-49) U/L Lactate Dehydrogenase 404 H (120-246) U/L C-Reactive Protein 3.0 H (0.0-0.8) mg/dL Total Protein 5.7 L (6.2-8.2) g/dL Albumin 3.70 L (3.80-4.90) g/dL Procalcitonin 0.19 H (0.02-0.09) ng/mL Microbiology - Last 24 Hours (Table) 04/01/20 10:10 Blood Culture - Preliminary Blood No Growth after 48 hours 04/01/20 10:30 Blood Culture - Preliminary Blood No Growth after 48 hours 04/02/20 20:29 Gram Stain - Final Sputum Sputum Culture - Preliminary
--- NOTE | 2020-04-03 13:50 | CDI ---
Documentation Clarification Form Date: 04/03/2020 01:38:35 PM From: Leatha WarrenLingURIEL moreau, CCDS Admit Date: 04/01/2020 02:14:00 PM Patient Name: Jag Davis Visit Number: [id number] Discharge Date: ATTENTION: The Clinical Documentation Specialists (CDI) and [facility] Coding Staff appreciate your assistance in clarifying documentation. Please respond to the clarification below the line at the bottom and electronically sign. The CDI & [facility] Coding staff will review the response and follow-up if needed. Please note: Queries are made part of the Legal Health Record. If you have any questions, please contact the author of this message via ITS. Dr. Jag Weaver: Asthma is documented in the 04/01 ED Note as "History of childhood asthma". Per the 04/01 History & Physical: "Asthma without exacerbation." Per the 04/02 Pulmonary Consult: "History of mild asthma." History/risk factors: Hypertension, Hyperlipidemia, Asthma, Clinical Indicators: Presented to the ED on 04/01 with a history of childhood asthma who states that he was diagnosed with COVID-19 9 days ago. He has been on outpatient treatment, progressively worse with more short of breath, exertional dyspnea with any type of exertion including talking or walking and he also has had fevers. He has tried home updrafts without any success. Non-smoker. VS 04/01: T 100.8^, P 104^, R 24 (SOB), BP 129/67, PO 89 RA BMI: 34.2 LAB: Neut 8.9^, Lymph 0.6*, D Dimer 0.71^, BUN 26^, Ferritin 1349.0^, ALT 59^, LDH 1141^, Cr Kinase 41*, CRP 56.2^, Procalcitonin 0.21^ RAD: 04/01 CXR: Correlate for pneumonia. 04/01 CT Chest: Correlate for pneumonia, consider COVID-19. Treatment 04/01: INH Ventolin, IV fluid 1,000 mls @ 100 mls/hr q10, IV Decadron, Vit C, Vit D3, Lovenox sq, po Orazinc, po Hexadrol, po Melatonin, O2 2Lnc - 3Lnc. In your professional opinion, can you please further specify the following, if known? Asthma without Exacerbation, please specify severity: Mild intermittent Mild persistent Other, please specify: Unable to determine (Last Revision: May 2017) ___Unable to determine _ MTDD
--- NOTE | 2020-04-03 16:49 | P.PN ---
Subjective Progress Note Date: 04/03/20 Principal diagnosis: Dyspnea, cough, hypoxemia, pneumonia abnormal chest x-ray This is a 54-year-old male seen today, on April 02, for shortness of breath, and COVID 19 pneumonia. The patient hasn't been feeling well for about 10 or 11 days. He tested positive a number of days ago, about 10, but was basically just using breathing treatments at home, as well as igbx-zgn-aaugafo medications. His who is a respiratory therapist also was positive for the virus. More recently, he started having greater shortness of breath, especially on exertion. In addition, he did have some chest tightness, cough, with minimal phlegm production. He also had high temperatures up to 103. For that reason, he came into the hospital to be evaluated. His chest x-ray and a CT angiogram were both abnormal. The patient's medications currently include convalescent plasma, Decadron, vitamin C, vitamin D3, zinc, melatonin, Pepcid, and colchicine. He is not a candidate for remdesivir. He has a history of hyperlipidemia, and hypertension. He is a lifelong nonsmoker. Currently, the patient's on 2-3 L nasal cannula. He seems reasonably comfortable. On 04/03/2020 patient seen in follow-up on medical floor, he continues on Remdesivir for acute COVID 19 pneumonitis, today is day 2 of treatment, he received 1 unit of convalescent plasma, we'll order second unit for him today, breathing comfortably, resting quietly in bed. 2 L of oxygen his pulse ox of 95%, his been afebrile, vital signs have been stable. His labs have been reviewed, pro-calcitonin level is low at 0.19, his inflammatory markers are improving, LDH is down to 404, and CRP down to 3.0, electrolytes and renal profile are unremarkable. D-dimer 0.56 Objective - Vital Signs Vital signs: Vital Signs Temp 98.6 F 04/03/20 15:24 Pulse 61 04/03/20 15:24 Resp 16 04/03/20 15:24 BP 115/74 04/03/20 15:24 Pulse Ox 95 04/03/20 10:00 Intake & Output 04/02/20 04/03/20 04/03/20 18:59 06:59 18:59 Intake Total 3000 300 214 Balance 3000 300 214 Intake: Oral 3000 300 Blood Product 0 214 Ffp Pher Conval Covid19 0 Acda 2 Unit [id number] Ffp Pher Conval Covid19 214 Acda 2 Unit [id number] Other: Voiding Method Toilet Toilet # Voids 3 1 - Exam GENERAL EXAM: Alert, very pleasant, 54-year-old white male, on 2 L of oxygen the pulse ox of 95% comfortable in no apparent distress. HEAD: Normocephalic/atraumatic. EYES: Normal reaction of pupils, equal size. Conjunctiva pink, sclera white. NOSE: Clear with pink turbinates. THROAT: No erythema or exudates. NECK: No masses, no JVD, no thyroid enlargement, no adenopathy. CHEST: No chest wall deformity. Symmetrical expansion. LUNGS: Equal air entry with no crackles, wheeze, rhonchi or dullness. CVS: Regular rate and rhythm, normal S1 and S2, no gallops, no murmurs, no rubs ABDOMEN: Soft, nontender. No hepatosplenomegaly, normal bowel sounds, no guarding or rigidity. EXTREMITIES: No clubbing, no edema, no cyanosis, 2+ pulses and upper and lower extremities. MUSCULOSKELETAL: Muscle strength and tone normal. SPINE: No scoliosis or deformity SKIN: No rashes CENTRAL NERVOUS SYSTEM: Alert and oriented -3. No focal deficits, tone is normal in all 4 extremities. PSYCHIATRIC: Alert and oriented -3. Appropriate affect. Intact judgment and insight. - Labs CBC & Chem 7: 04/03/20 05:39 04/03/20 05:39 Labs: Abnormal Lab Results - Last 24 Hours (Table) 04/03/20 04/03/20 04/03/20 Range/Units 05:39 05:39 05:39 MCH 32.1 H (27.0-32.0) pg Immature Gran # 0.06 H (0.00-0.04) X 10*3/uL Neutrophils # 8.04 H (1.80-7.70) X 10*3/uL Lymphocytes # 0.70 L (0.90-5.00) X 10*3/uL Eosinophils # 0 L (0.04-0.35) X 10*3/uL BUN/Creatinine Ratio 28.57 H (12.00-20.00) Ratio Glucose 117 H (70-110) mg/dL Ferritin 1097.6 H (22.0-322.0) ng/mL AST 75 H (14-35) U/L ALT 176 H (10-49) U/L Lactate Dehydrogenase 404 H (120-246) U/L C-Reactive Protein 3.0 H (0.0-0.8) mg/dL Total Protein 5.7 L (6.2-8.2) g/dL Albumin 3.70 L (3.80-4.90) g/dL Procalcitonin 0.19 H (0.02-0.09) ng/mL Microbiology - Last 24 Hours (Table) 04/01/20 10:10 Blood Culture - Preliminary Blood No Growth after 48 hours 04/01/20 10:30 Blood Culture - Preliminary Blood No Growth after 48 hours 04/02/20 20:29 Gram Stain - Final Sputum Sputum Culture - Preliminary Assessment and Plan Plan: Assessment: #1. Acute hypoxemic respiratory failure secondary to COVID 19 pneumonitis, started on Remdesivir treatment on 04/02/2020, patient is status post transfusion of one unit of convalescent plasma his second unit was ordered today on 04/03/2020 in addition to oral Decadron, Colchicine, vitamins, and prophylactic dose of Lovenox #2. Elevated inflammatory markers related to acute viral pneumonia secondary to COVID 19 infection #3. Attention #4. Hyperlipidemia #5. Never smoker #6. History of childhood asthma, unspecified Plan: Continue current dose Decadron, continue with Remdesivir, continue prophylactic dose Lovenox, will to seen, vitamins, we'll give the patient second dose of convalescent plasma. D-dimer, inflammatory markers have been noted, and are trending down. We'll continue to closely follow clinical course, and make recommendations. Weaning FiO2, follow-up chest x-ray I performed a history & physical examination of the patient and discussed their management with my nurse practitioner, Perla Chung. I reviewed the nurse practitioner's note and agree with the documented findings and plan of care. Lung sounds are positive for diminished breath sounds. The findings and the impression was discussed with the patient. I attest to the documentation by the nurse practitioner. Time with Patient: Less than 30
[2020-04-03] MEDS: ATORVASTATIN 10 MG TAB PO SCH (21:24)
[2020-04-03] MEDS: MELATONIN 5 MG TABLET PO SCH (21:24)
[2020-04-03] MEDS: SERTRALINE 100 MG TAB PO SCH (21:24)
[2020-04-04] MEDS: ALBUTEROL HFA INHALER INHALATION SCH ×4 (01:19→11:38)
[2020-04-04] MEDS: ACETAMINOPHEN TAB 325 MG TAB PO PRN (05:23)
[2020-04-04] MEDS: lisinopriL 10 MG TAB PO SCH (07:20)
[2020-04-04] MEDS: FAMOTIDINE 20 MG TAB PO SCH (07:20)
[2020-04-04] MEDS: ASPIRIN 81 MG PO SCH (07:20)
[2020-04-04] MEDS: ENOXAPARIN 40 MG/0.4 ML SYRINGE SQ SCH (07:20)
[2020-04-04] MEDS: ASCORBIC ACID 500 MG TAB PO SCH (07:21)
[2020-04-04] MEDS: ZINC SULFATE 220 MG CAP PO SCH (07:21)
[2020-04-04] MEDS: dexAMETHasone 2 MG TAB PO SCH (07:21)
[2020-04-04] MEDS: CHOLECALCIFEROL 25 MCG (1000 IU) TABLET PO SCH (07:21)
[2020-04-04] MEDS: COLCHICINE 0.6 MG EACH PO SCH (07:21)
--- NOTE | 2020-04-04 07:56 | XR ---
Area EXAMINATION TYPE: XR chest 1V portable DATE OF EXAM: 04/04/2020 HISTORY: Shortness of breath. COMPARISON: 04/01/2020 TECHNIQUE: Single view of the chest is submitted. FINDINGS: Demonstrated are scattered senescent parenchymal change. Perihilar and basilar infiltrates remain essentially unchanged. The heart is stable. Hilar and mediastinal structures are within normal limits. Degenerative changes are seen of the dorsal spine. IMPRESSION: 1. Perihilar and basilar infiltrates remain essentially unchanged.
[2020-04-04 09:16] LABS: Basophils # (A) 0.01 X 10*3/uL (0.00-0.10); Basophils % (A) 0.1 %; Eosinophils # (A) 0 X 10*3/uL (0.04-0.35); Eosinophils % (A) 0 %; HCT 41.3 % (39.6-50.0); HGB 13.8 g/dL (13.0-17.0); Lymphocytes # (A) 1.29 X 10*3/uL (0.90-5.00); Lymphocytes % (A) 14.7 %; MCH 31.9 pg (27.0-32.0); MCHC 33.4 g/dL (32.0-37.0); MCV 95.6 fL (80.0-97.0); Mean Platelet Volume 9.6 fL (9.5-12.2); Monocytes # (A) 0.48 X 10*3/uL (0.20-1.00); Monocytes % (A) 5.5 %; Neutrophils % (A) 78.9 %; Platelet Count 190 X 10*3/uL (140-440); RBC 4.32 X 10*6/uL (4.40-5.60); RDW 11.8 % (11.5-14.5); WBC 8.75 X 10*3/uL (4.50-10.00)
[2020-04-04 10:12] LABS: African American GFR (CKD) 118.2 (60.0-200.0); Albumin 3.7 g/dL (3.80-4.90); Albumin/Globulin Ratio 1.95 (1.60-3.17); Anion Gap 7.8 mmol/L (4.00-12.00); C Reactive Protein 2.3 mg/dL (0.0-0.8); Calcium 8.8 mg/dL (8.7-10.3); Carbon Dioxide 29.2 mmol/L (21.6-31.8); Ferritin 804.8 ng/mL (22.0-322.0); Globulin 1.9 g/dL (1.6-3.3); Magnesium 1.7 mg/dL (1.5-2.4); Potassium 4.3 mmol/L (3.5-5.5); Total Bilirubin 0.5 mg/dL (0.3-1.2); Total Protein 5.6 g/dL (6.2-8.2)
[2020-04-04 10:53] VITALS: BP 116/65; PULSE 63; RESP 16; TEMP 99.1
--- NOTE | 2020-04-04 13:50 | P.PN ---
Subjective Progress Note Date: 04/04/20 Principal diagnosis: Dyspnea, cough, hypoxemia, pneumonia abnormal chest x-ray This is a 54-year-old male seen today, on April 02, for shortness of breath, and COVID 19 pneumonia. The patient hasn't been feeling well for about 10 or 11 days. He tested positive a number of days ago, about 10, but was basically just using breathing treatments at home, as well as [id number] medications. His who is a respiratory therapist also was positive for the virus. More recently, he started having greater shortness of breath, especially on exertion. In addition, he did have some chest tightness, cough, with minimal phlegm production. He also had high temperatures up to 103. For that reason, he came into the hospital to be evaluated. His chest x-ray and a CT angiogram were both abnormal. The patient's medications currently include convalescent plasma, Decadron, vitamin C, vitamin D3, zinc, melatonin, Pepcid, and colchicine. He is not a candidate for remdesivir. He has a history of hyperlipidemia, and hypertension. He is a lifelong nonsmoker. Currently, the patient's on 2-3 L nasal cannula. He seems reasonably comfortable. On 04/03/2020 patient seen in follow-up on medical floor, he continues on Remdesivir for acute COVID 19 pneumonitis, today is day 2 of treatment, he received 1 unit of convalescent plasma, we'll order second unit for him today, breathing comfortably, resting quietly in bed. 2 L of oxygen his pulse ox of 95%, his been afebrile, vital signs have been stable. His labs have been reviewed, pro-calcitonin level is low at 0.19, his inflammatory markers are improving, LDH is down to 404, and CRP down to 3.0, electrolytes and renal profile are unremarkable. D-dimer 0.56 On 04/04/2020 patient seen in follow-up on general medical floor, he is on room air, he is breathing comfortably, room air pulse ox at rest was 92%, with e xercise he did drop down to 83% in he does qualify for home oxygen, he was having a low-grade fevers, but no worsening dyspnea, no chest discomfort chest x-ray shows perihilar and basilar infiltrates unchanged compared previous exam. Patient continues on Decadron, zinc, vitamins, and prophylactic dose of Lovenox. Objective - Vital Signs Vital signs: Vital Signs Temp 99.1 F 04/04/20 10:00 Pulse 63 04/04/20 10:00 Resp 16 04/04/20 10:00 BP 116/65 04/04/20 10:00 Pulse Ox 90 L 04/04/20 10:27 Intake & Output 04/03/20 04/04/20 04/04/20 18:59 06:59 18:59 Intake Total 214 300 Balance 214 300 Intake: Oral 300 Blood Product 214 Ffp Pher Conval Covid19 214 Acda 2 Unit [id number] Other: Voiding Method Toilet # Voids 2 2 - Exam GENERAL EXAM: Alert, very pleasant, 54-year-old white male, on 2 L of oxygen the pulse ox of 95% comfortable in no apparent distress. HEAD: Normocephalic/atraumatic. EYES: Normal reaction of pupils, equal size. Conjunctiva pink, sclera white. NOSE: Clear with pink turbinates. THROAT: No erythema or exudates. NECK: No masses, no JVD, no thyroid enlargement, no adenopathy. CHEST: No chest wall deformity. Symmetrical expansion. LUNGS: Equal air entry with no crackles, wheeze, rhonchi or dullness. CVS: Regular rate and rhythm, normal S1 and S2, no gallops, no murmurs, no rubs ABDOMEN: Soft, nontender. No hepatosplenomegaly, normal bowel sounds, no guarding or rigidity. EXTREMITIES: No clubbing, no edema, no cyanosis, 2+ pulses and upper and lower extremities. MUSCULOSKELETAL: Muscle strength and tone normal. SPINE: No scoliosis or deformity SKIN: No rashes CENTRAL NERVOUS SYSTEM: Alert and oriented -3. No focal deficits, tone is normal in all 4 extremities. PSYCHIATRIC: Alert and oriented -3. Appropriate affect. Intact judgment and insight. - Labs CBC & Chem 7: 04/04/20 05:31 04/04/20 05:31 Labs: Abnormal Lab Results - Last 24 Hours (Table) 04/04/20 04/04/20 04/04/20 Range/Units 05:31 05:31 05:31 RBC 4.32 L (4.40-5.60) X 10*6/uL Immature Gran # 0.07 H (0.00-0.04) X 10*3/uL Eosinophils # 0 L (0.04-0.35) X 10*3/uL D-Dimer 0.76 H (<0.60) mg/L FEU BUN/Creatinine Ratio 30.00 H (12.00-20.00) Ratio Ferritin 804.8 H (22.0-322.0) ng/mL AST 55 H (14-35) U/L ALT 175 H (10-49) U/L Lactate Dehydrogenase 356 H (120-246) U/L C-Reactive Protein 2.3 H (0.0-0.8) mg/dL Total Protein 5.6 L (6.2-8.2) g/dL Albumin 3.70 L (3.80-4.90) g/dL Microbiology - Last 24 Hours (Table) 04/01/20 10:10 Blood Culture - Preliminary Blood No Growth after 72 hours 04/01/20 10:30 Blood Culture - Preliminary Blood No Growth after 72 hours Assessment and Plan Plan: Assessment: #1. Acute hypoxemic respiratory failure secondary to COVID 19 pneumonitis, patient is status post transfusion of one unit of convalescent plasma his second unit was ordered today on 04/03/2020 in addition to oral Decadron, Colchicine, vitamins, and prophylactic dose of Lovenox #2. Elevated inflammatory markers related to acute viral pneumonia secondary to COVID 19 infection #3. Attention #4. Hyperlipidemia #5. Never smoker #6. History of childhood asthma, unspecified Plan: Clinically patient has been stable, chest x-ray shows no significant change, patient does qualify for home oxygen as he did desaturate to 83% on room air with exercise. No acute events overnight, from pulmonary perspective he could be considered for discharge home he can complete a 10 day course of oral Decadron, he can continue colchicine, vitamins, with Dr. Weaver in the office in 2-3 weeks I performed a history & physical examination of the patient and discussed their management with my nurse practitioner, Perla Chung. I reviewed the nurse practitioner's note and agree with the documented findings and plan of care. Lung sounds are positive for diminished breath sounds. The findings and the impression was discussed with the patient. I attest to the documentation by the nurse practitioner. Time with Patient: Less than 30
--- NOTE | 2020-04-05 06:49 | DS ---
DISCHARGE SUMMARY DATE OF ADMISSION: 04/01/2020 DATE OF DISCHARGE: 04/04/2020 PRESENTING COMPLAINT: Short of breath. HISTORY OF PRESENTING COMPLAINT: This is a 54-year-old patient who was diagnosed with COVID-19 a few days ago with symptoms of cough after his , who is a respiratory therapist here, was diagnosed with COVID also. At that time, he was started on steroids, zinc, vitamin C, D, Pepcid, and he was self quarantined. The patient progressively became weak. Initial symptoms of cough, fever, chills, sweats, myalgias. Denies weakness. Pulse ox at home became 88% on room air and patient was admitted to the ER. Chest x-ray showed bilateral infiltrates. Chest CTA negative for PE, showed diffuse ground-glass opacities, largely peripheral. The patient was seen by Dr. Weaver from Pulmonary. The patient was treated with convalescent plasma, bronchodilator, subcu Lovenox, IV dexamethasone, zinc, vitamin C, colchicine. Other home medications were resumed. Today, the patient is feeling a bit better. Pulse ox was 83% with ambulation. I spoke to , IT SECURITY MANAGER with Dr. Weaver. He was okay for the patient to be discharged on oxygen. Discussed with the patient. Discussion and discharge planning more than 35 minutes. PHYSICAL EXAMINATION: On examination, temperature 99.1, pulse 63, respirations 16, pulse ox 96% on 2 L and 83% with ambulation. Lungs-some scattered mild crackles. Psych AO x3. Cardiovascular 1st and 2nd sounds normal. INVESTIGATIONS: White count 8.75, hemoglobin 13.8. D-dimer 0.69. Potassium 4.3, creatinine 0.8, AST 55, ALT 175, CRP 2.3. DISCHARGE MEDICATIONS: 1. Aspirin 81 mg a day. 2. ProAir 2 puffs q.i.d. p.r.n. 3. Zestril 10 mg a day. 4. Zoloft 100 mg a day. 5. Zocor 20 mg q.h.s. 6. Vitamin C 1000 mg a day. 7. Vitamin D3 50 mcg a day. 8. Pepcid 20 mg b.i.d. for 30 days. 9. Xarelto 2.5 mg daily for 14 days. 10.Zinc 220 mg daily for 30 days. 11.Dexamethasone 6 mg daily for 7 days. ADDITIONAL INSTRUCTIONS: COVID-19 quarantine and home oxygen 2 L. FOLLOWUP: Follow up with Dr. Taylor on April 16. Follow up with Dr. Weaver in 2 weeks at discharge. MMODL / IJN: [id number] /
--- NOTE | 2020-04-05 23:12 | DS ---
DISCHARGE SUMMARY ADDENDUM TO DISCHARGE SUMMARY: DATE OF ADMISSION: 04/01/2020. DATE OF DISCHARGE: 04/04/2020. FINAL DIAGNOSES: 1. Bilateral COVID-19 pneumonia. 2. Acute hypoxic respiratory failure from above. 3. Essential hypertension. 4. Hyperlipidemia. 5. -reactive thrombocytopenia. 6. -intermittent asthma without exacerbation. 7. Post-traumatic stress disorder. MMODL / IJN: [id number] /
== END 2020-04-04 15:14 | disposition home or self-care (01) | DRG 177 ==
LOC: EC 10:04 → 4SSUR 14:14
PROVIDERS: ADMIT Hospitalist; ATTEND Hospitalist
DX: U07.1 COVID-19 (principal); J80 Acute respiratory distress syndrome; J12.82 Pneumonia due to coronavirus disease 2019; J45.909 Unspecified asthma, uncomplicated; I10 Essential (primary) hypertension; F43.10 Post-traumatic stress disorder, unspecified; F39 Unspecified mood [affective] disorder; E78.5 Hyperlipidemia, unspecified; D69.6 Thrombocytopenia, unspecified; Z79.82 Long term (current) use of aspirin; Z79.899 Other long term (current) drug therapy; Z80.0 Family history of malignant neoplasm of digestive organs; Z80.1 Family history of malignant neoplasm of trachea, bronchus and lung; Z87.09 Personal history of other diseases of the respiratory system; Z88.5 Allergy status to narcotic agent
CPT/HCPCS: 36415; 71045; 71046; 71275; 80053; 82550; 82728; 83605; 83615; 83735; 83880; 84145; 84484; 85025; 85379; 85610; 85730; 86140; 86850; 86900; 86901; 87040; 87070; 87205; 93005; 94640; 94760; 96361; 96374; 99285

== ENCOUNTER 2020-06-15 09:49 | Day surgery (SDC) | payer BC ==
[2020-06-13 11:46] VITALS: BMI 34.5
[~2020-06-15 09:49] MED LIST changes: +LIDOCAINE 1% (10MG/ML) FOR IV START INTRADERMA PRN; -LIDOCAINE 1% 20 ML VIAL (10MG/ML) FOR IV START INTRADERMA PRN
[2020-06-15 10:41] VITALS: RESP 16; TEMP 97.3
[2020-06-15] MEDS ORDERED: PROPOFOL 10 MG/ML 20 ML VIAL IV ONE (10:42)
[2020-06-15] MEDS ORDERED: LIDOCAINE 1% INJ 10MG/ML (20 ML MDV) ONE (10:42)
--- NOTE | 2020-06-15 10:57 | P.PCN ---
Date of Procedure: 06/15/20 Procedure(s) Performed: BRIEF HISTORY: Patient is a 54-year-old, pleasant, white male scheduled for an upper endoscopy as a part of evaluation of GERD symptoms for the last several months duration.. PROCEDURE PERFORMED: Esophagogastroduodenoscopy with biopsy PREOPERATIVE DIAGNOSIS GERD of several months duration. IV sedation per anesthesia. PROCEDURE: After informed consent was obtained, the patient was brought into the endoscopy unit. IV sedation was administered by Anesthesia under continuous monitoring. Initially the Olympus GIF-140 video endoscope was inserted into the mouth. Esophagus intubated without any difficulty. It was gradually advanced into the stomach and duodenum and carefully examined. The bulb and the second part of the duodenum appeared normal. The scope at this time was withdrawn to the stomach, adequately insufflated with air, and upon careful examination, mucosa of the antrum, had mild diffuse gastritis and biopsies were done from this area. The body, cardia and the fundus appeared normal. The scope was then withdrawn into the esophagus. The GE junction was located at 39 cm from the incisors. There were linear erosions and once a fissure ulceration at the GE junction consistent with LA grade C reflux esophagitis. In the midesophagus there was some mucosal thickening and biopsies were done from this area and the patient tolerated the procedure well. IMPRESSION: 1. Antral erosive gastritis. 2. Linear erosions and one superficial ulceration at the GE junction consistent with LA grade C reflux esophagitis. RECOMMENDATIONS: The findings of this examination were discussed with the patient as well as his family. He'll follow with the biopsy results. He was advised to start back on Prilosec 20 mg daily and follow antireflux measures..
[2020-06-15 11:19] VITALS: BP 133/82; PULSE 59
== END 2020-06-15 11:46 | disposition home or self-care (01) ==
LOC: ORWHC2ENDO 09:49
PROVIDERS: ATTEND Internal Medicine Gastroenterology
DX: K20.0 Eosinophilic esophagitis (principal); K29.60 Other gastritis without bleeding; Z79.899 Other long term (current) drug therapy; Z88.5 Allergy status to narcotic agent; I10 Essential (primary) hypertension; E78.5 Hyperlipidemia, unspecified; F43.10 Post-traumatic stress disorder, unspecified; Z86.16 Personal history of COVID-19
CPT/HCPCS: 88305; 43239; J2001; J2704

== ENCOUNTER 2020-11-13 10:30 | Observation (INO) | payer BC ==
[2020-11-13] MEDS ORDERED: ASPIRIN 81 MG PO STA (10:47)
--- NOTE | 2020-11-13 11:06 | ED ---
Chest Pain HPI - General Chief Complaint: Chest Pain Stated Complaint: Abnormal EKG Time Seen by Provider: 11/13/20 10:35 Source: patient Mode of arrival: ambulatory Limitations: no limitations - History of Present Illness Initial Comments: Patient is a 55-year-old male with history of hypertension, GERD, presenting to the emergency Department with complaints of chest pain. He went to his doctor's office today who did an EKG stated there was some irregularities and wanted him to be evaluated at the ER. He states yesterday he felt a little bit of pressure and then it's worse today. He rates the discomfort about a 7/10. He does have some radiation towards the left side of his neck. He reports feeling "pressure around his whole neck." He denies any falls or trauma. He does admit to some mild shortness of breath today as well. There are no alleviating or aggravating factors including position. He denies any fevers or chills. He did recover from covert pneumonia in April of this year. Denies history of blood clots. No recent travel other than his normal 45 minute commute to work each day. Denies any abdominal complaints such as nausea or vomiting, no diarrhea. He has no further complaints today. His vitals are stable upon arrival. - Related Data Home Medications Medication Instructions Recorded Confirmed Lisinopril [Zestril] 10 mg PO HS 04/01/20 11/13/20 Sertraline HCl [Zoloft] 100 mg PO HS 04/01/20 11/13/20 Simvastatin [Zocor] 20 mg PO HS 04/01/20 11/13/20 Lansoprazole 30 mg PO HS 11/13/20 11/13/20 Allergies Allergy/AdvReac Type Severity Reaction Status Date / Time Opioids - Morphine Analogues AdvReac Nausea & Verified 11/13/20 11:39 Vomiting Review of Systems ROS Statement: Those systems with pertinent positive or pertinent negative responses have been documented in the HPI. ROS Other: All systems not noted in ROS Statement are negative. EKG Findings - EKG Comments: EKG Findings:: Sinus bradycardia, left axis deviation, minimal voltage criteria for LVH. No signs of acute ST segment elevation. The jugular rate 50, [place] interval 168, QTC 454. Past Medical History Past Medical History: GERD/Reflux, Hyperlipidemia, Hypertension, Pneumonia Additional Past Medical History / Comment(s): covid pneumonia in [place] 2021, abd. pain & burning for 5-6 months History of Any Multi-Drug Resistant Organisms: None Reported Past Surgical History: Orthopedic Surgery Additional Past Surgical History / Comment(s): rt shoulder arthroscopy, lt knee arthroscopy x2, rt knee arthroscopy, lt foot surgery x2 Past Anesthesia/Blood Transfusion Reactions: No Reported Reaction Past Psychological History: PTSD Smoking Status: Never smoker Past Alcohol Use History: None Reported Past Drug Use History: None Reported - Past Family History Mother Family Medical History: Cancer Additional Family Medical History / Comment(s): colon cancer with metastasis Father Family Medical History: Cancer Additional Family Medical History / Comment(s): oat cell cancer lung General Exam - General Exam Comments Initial Comments: GENERAL: Patient is well-developed and well-nourished. Patient is nontoxic and in no acute distress. HEAD: Atraumatic, normocephalic. EYES: Pupils equal round and reactive to light, extraocular movements intact, sclera anicteric, conjunctiva are normal. Eyelids were unremarkable. ENT: TMs normal, nares patent, oropharynx clear without exudates. Moist mucous membranes. NECK: Normal range of motion, supple without lymphadenopathy or JVD. LUNGS: Unlabored respirations. Breath sounds clear to auscultation bilaterally and equal. No wheezes rales or rhonchi. HEART: Regular rate and rhythm without murmurs, rubs or gallops. ABDOMEN: Soft, nontender, normoactive bowel sounds. No guarding, no rebound. No masses appreciated. : Deferred MUSCULOSKELETAL: Normal extremities with adequate strength and normal range of motion, no pitting or edema. No clubbing or cyanosis. NEUROLOGICAL: Patient is alert and oriented x 3. Motor and sensory are also intact. Cranial nerves II through XII grossly intact. Symmetrical smile. Normal speech, normal gait. PSYCH: Normal mood, normal affect. SKIN: Warm, Dry, normal turgor, no rashes or lesions noted. 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 He does have some radiation towards left side of the neck. So feels pressure around his neck. He did have Covid in April. He states he had a little bit of a cough today as well. No fevers his vitals are stable. EKG revealed no acute process at this time. His lab work is unremarkable including normal troponin and negative d-dimer. Chest x-ray shows some residual patchy density in the lower lobe on the left. Correlate for pneumonia. Patient's vital signs remained stable, according to the in the room, patient did fall asleep and his heart rate did drop to low 40s, 42. He states his heart rate usually in the 50s. He is resting currently at this time. Patient will be admitted for cardiac rule out, I will order serial troponins. He is agreeable to this. I will start him on azithromycin for possible pneumonia. Patient accepted by LISA Salas with [facility]. Case discussed with Dr. Martino. Disposition Clinical Impression: Chest pain Disposition: ADMITTED IP TO THIS HOSP Condition: Stable Referrals: Valente Taylor MD [Primary Care Provider] - 1-2 days Decision Date: 11/13/20 Decision Time: 12:24
[2020-11-13] MEDS: KETOROLAC 15 MG/ML 1 ML VIAL IM STA ×2 (11:08→11:33)
[2020-11-13] MEDS ORDERED: KETOROLAC 15 MG/ML 1 ML VIAL IVP STA (11:10)
[2020-11-13 11:15] LABS: Basophils # (A) 0.1 k/uL (0-0.2); Basophils % (A) 1 %; Eosinophils # (A) 0.1 k/uL (0-0.7); Eosinophils % (A) 2 %; HCT 42.9 % (39.0-53.0); HGB 15.2 gm/dL (13.0-17.5); Lymphocytes # (A) 1.6 k/uL (1.0-4.8); Lymphocytes % (A) 21 %; MCH 33.1 pg (25.0-35.0); MCHC 35.5 g/dL (31.0-37.0); MCV 93.2 fL (80.0-100.0); Mean Platelet Volume 6.9; Monocytes # (A) 0.4 k/uL (0-1.0); Monocytes % (A) 5 %; Neutrophils # (A) 5.3 k/uL (1.3-7.7); Neutrophils % (A) 70 %; Platelet Count 190 k/uL (150-450); RDW 12.8 % (11.5-15.5); WBC 7.6 k/uL (3.8-10.6)
[2020-11-13 11:30] LABS: Partial Thromboplastin Time 24.1 sec (22.0-30.0); Prothrombin Time 10.6 sec (9.0-12.0)
[2020-11-13 11:33] LABS: ALT 23 U/L (4-49); AST 26 U/L (17-59); African American GFR (CKD) >90 (>60 ml/min/1.73 sqM); Albumin 4.1 g/dL (3.5-5.0); Alkaline Phosphatase 73 U/L (38-126); Anion Gap 8 mmol/L; Blood Urea Nitrogen 15 mg/dL (9-20); Calcium 9.2 mg/dL (8.4-10.2); Carbon Dioxide 24 mmol/L (22-30); Chloride 106 mmol/L (98-107); Glucose 93 mg/dL (74-99); Non-African American GFR(CKD) >90 (>60 ml/min/1.73 sqM); Potassium 3.8 mmol/L (3.5-5.1); Sodium 138 mmol/L (137-145); Total Bilirubin 0.5 mg/dL (0.2-1.3); Total Protein 6.7 g/dL (6.3-8.2)
--- NOTE | 2020-11-13 11:57 | XR ---
EXAMINATION TYPE: XR chest 2V DATE OF EXAM: 11/13/2020 COMPARISON: Chest x-ray 04/04/2020 HISTORY: Chest pain TECHNIQUE: Frontal and lateral views of the chest are obtained. FINDINGS: There is minimal patchy basilar density on the left, no pleural effusion, or pneumothorax seen. The cardiac silhouette size is within normal limits. There are overlying leads. Patient is ro tated. Right hemidiaphragm is elevated. The osseous structures are intact. IMPRESSION: There is interval improvement in aeration compared to prior exam. Some residual patchy d ensity suspected in the lower lobe of the left. Correlate for pneumonia, residuum of prior Covid infe ction
[2020-11-13] MEDS: NITROGLYCERIN SL TABS 0.4 MG TAB SUBLINGUAL PRN ×2 (13:48→19:48)
[2020-11-13] MEDS ORDERED: NALOXONE 0.4 MG/ML 1 ML VIAL IV PRN (14:25)
--- NOTE | 2020-11-13 14:34 | P.HPIM ---
History of Present Illness H&P Date: 11/13/20 Chief Complaint: chest pain 55-year-old man with medical history of hypertension, hyperlipidemia, acid reflux presented with chest pain. Patient says that his pain started yesterday while at rest, felt substernal and pressure-like. He described it as if an elephant was sitting on his chest. The pain has been relatively consistent since yesterday. He has radiation down the arm and into the jaw. He also noticed that his heart rates are lower than normal for him, often in the low 40s. He denies fevers, chills, nausea, vomiting, palpitations, syncope, presyncope, dyspnea, orthopnea, abdominal pain, diarrhea, constipation, dysuria, dyschezia, numbness/weakness. He does report a cough without sputum production. He recovered from Covid 19 in April 2020 and has been in his usual state of health since that time. Patient was given sublingual nitroglycerin in the emergency room which immediately reduced his pain from 6-1. Review of Systems All Systems reviewed and pertinent positives and negatives noted in HPI, all other symptoms are negative Past Medical History Past Medical History: GERD/Reflux, Hyperlipidemia, Hypertension, Pneumonia Additional Past Medical History / Comment(s): covid pneumonia in 2020, abd. pain & burning for 5-6 months History of Any Multi-Drug Resistant Organisms: None Reported Past Surgical History: Orthopedic Surgery Additional Past Surgical History / Comment(s): rt shoulder arthroscopy, lt knee arthroscopy x2, rt knee arthroscopy, lt foot surgery x2 Past Anesthesia/Blood Transfusion Reactions: No Reported Reaction Past Psychological History: PTSD Smoking Status: Never smoker Past Alcohol Use History: None Reported Past Drug Use History: None Reported - Past Family History Mother Family Medical History: Cancer Additional Family Medical History / Comment(s): colon cancer with metastasis Father Family Medical History: Cancer Additional Family Medical History / Comment(s): oat cell cancer lung Medications and Allergies Home Medications Medication Instructions Recorded Confirmed Type Lisinopril [Zestril] 10 mg PO HS 04/01/20 11/13/20 History Sertraline HCl [Zoloft] 100 mg PO HS 04/01/20 11/13/20 History Simvastatin [Zocor] 20 mg PO HS 04/01/20 11/13/20 History Lansoprazole 30 mg PO HS 11/13/20 11/13/20 History Allergies Allergy/AdvReac Type Severity Reaction Status Date / Time Opioids - Morphine Analogues AdvReac Nausea & Verified 11/13/20 11:39 Vomiting Physical Exam Osteopathic Statement: *. No significant issues noted on an osteopathic structural exam other than those noted in the History and Physical/Consult. Vitals: Vital Signs Temp Pulse Pulse Resp BP Pulse Ox 11/13/20 12:33 52 L 18 11/13/20 12:28 49 L 18 139/77 96 11/13/20 10:31 98.2 F 51 L 20 165/85 98 Intake and Output 11/12/20 11/13/20 11/13/20 22:59 06:59 14:59 Other: Weight 116.573 kg Gen: awake, alert HEENT: normocephalic, atraumatic, good hearing acuity, moist mucous membranes Resp: good air exchange, breathing comfortably with no accessory muscle use, clear to auscultation bilaterally CVS: good distal perfusion x 4, no murmurs, bradycardic, regular rhythm GI: soft, NTTP, ND : no SPT, no CVAT, adler catheter not present MSK: no pitting edema, no clubbing Neuro: non-focal, moving all extremities Psych: cooperative, euthymic mood Results CBC & Chem 7: 11/13/20 11:01 11/13/20 11:01 Assessment and Plan Assessment: Unstable angina -Admit to observation, telemetry -Cardiology consult -Trend troponins -Nitro when necessary -EKG when necessary -Aspirin 81 mg daily -Atorvastatin 80 mg daily at bedtime -Hold off on beta viky given bradycardia -Nothing by mouth -A1c, lipid panel pending Hypertension Hyperlipidemia Acid reflux -Resume home medications Patient is full code DVT prophylaxis not indicated at this time 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
[2020-11-13] MEDS ORDERED: HEPARIN SODIUM 1,000 UN/ML (10ML VL) IV PRN (15:25)
[2020-11-13] MEDS ORDERED: HEPARIN SODIUM 1,000 UN/ML (10ML VL) IV ONE (15:25)
[2020-11-13] MEDS ORDERED: HEPARIN SOD,PORK IN 0.45% NACL 25,000 UNIT in 0.45% NACL 1 250ML.BAG IV SCH (15:45)
[2020-11-13] MEDS: PANTOPRAZOLE 40 MG TABLET PO SCH (19:42)
[2020-11-13] MEDS: lisinopriL 10 MG TAB PO SCH (19:42)
[2020-11-13] MEDS: SERTRALINE 100 MG TAB PO SCH (19:43)
[2020-11-13] MEDS: ATORVASTATIN 80 MG TAB PO SCH (19:45)
[2020-11-13] MEDS: ACETAMINOPHEN TAB 325 MG TAB PO PRN (20:15)
[2020-11-13 22:22] LABS: Basophils % (A) 1 %; Eosinophils # (A) 0.2 k/uL (0-0.7); Eosinophils % (A) 2 %; HCT 40.9 % (39.0-53.0); HGB 14.3 gm/dL (13.0-17.5); Lymphocytes # (A) 2.5 k/uL (1.0-4.8); Lymphocytes % (A) 38 %; MCH 32.8 pg (25.0-35.0); MCHC 34.9 g/dL (31.0-37.0); Mean Platelet Volume 7.2; Monocytes # (A) 0.4 k/uL (0-1.0); Monocytes % (A) 6 %; Neutrophils # (A) 3.2 k/uL (1.3-7.7); Neutrophils % (A) 50 %; Platelet Count 154 k/uL (150-450); RBC 4.35 m/uL (4.30-5.90); RDW 12.8 % (11.5-15.5); WBC 6.5 k/uL (3.8-10.6)
[2020-11-13 22:32] LABS: African American GFR (CKD) >90 (>60 ml/min/1.73 sqM); Anion Gap 6 mmol/L; Blood Urea Nitrogen 19 mg/dL (9-20); Calcium 8.9 mg/dL (8.4-10.2); Carbon Dioxide 25 mmol/L (22-30); Chloride 108 mmol/L (98-107); Glucose 93 mg/dL (74-99); Magnesium 2.1 mg/dL (1.6-2.3); Non-African American GFR(CKD) 81 (>60 ml/min/1.73 sqM); Potassium 3.8 mmol/L (3.5-5.1); Sodium 139 mmol/L (137-145)
[2020-11-14 03:28] LABS: Basophils # (A) 0.1 k/uL (0-0.2); Basophils % (A) 1 %; Eosinophils # (A) 0.1 k/uL (0-0.7); Eosinophils % (A) 2 %; HCT 39.6 % (39.0-53.0); Lymphocytes # (A) 2.3 k/uL (1.0-4.8); Lymphocytes % (A) 41 %; MCH 32.5 pg (25.0-35.0); MCHC 35.3 g/dL (31.0-37.0); MCV 92.2 fL (80.0-100.0); Mean Platelet Volume 7.5; Monocytes # (A) 0.3 k/uL (0-1.0); Monocytes % (A) 6 %; Neutrophils # (A) 2.6 k/uL (1.3-7.7); Neutrophils % (A) 47 %; Platelet Count 174 k/uL (150-450); RBC 4.29 m/uL (4.30-5.90); RDW 13.4 % (11.5-15.5); WBC 5.5 k/uL (3.8-10.6)
[2020-11-14 03:44] LABS: African American GFR (CKD) >90 (>60 ml/min/1.73 sqM); Anion Gap 5 mmol/L; Blood Urea Nitrogen 20 mg/dL (9-20); Carbon Dioxide 27 mmol/L (22-30); Chloride 108 mmol/L (98-107); Glucose 98 mg/dL (74-99); Magnesium 2.1 mg/dL (1.6-2.3); Non-African American GFR(CKD) 82 (>60 ml/min/1.73 sqM); Potassium 3.9 mmol/L (3.5-5.1); Sodium 140 mmol/L (137-145)
[2020-11-14 04:24] LABS: Hemoglobin A1C 5.3 % (4.0-6.0)
[2020-11-14] MEDS: ASPIRIN 81 MG PO SCH (08:07)
[2020-11-14] MEDS ORDERED: ASPIRIN 325 MG TAB PO SCH (09:00)
--- NOTE | 2020-11-14 09:38 | P.CRDCN ---
History of Present Illness Consult date: 11/14/20 History of present illness: HISTORY OF PRESENT ILLNESS: This is a 55-year-old male with a past medical history significant for hypertension and hyperlipidemia. Patient also reports a history of alcohol and drug use but states he has not used in 9 years. 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 We have been asked to see the patient in consultation for chest pain. Patient examined at the bedside. Patient states he had noticed some pain in his chest on Thursday night. He states like he felt like his diaphragm was tight and had some pressure on the left side of his chest. However he did not think much of it and went to bed. He states he woke up on Thursday and continued to have chest tightness. He states he started coughing Thursday with yellowish-colored sputum. He denies having a fever. He continued to have chest tightness and a cough with sputum production throughout the day. This morning he states he feels like his throat is tight and he feels like he is being choked. He reports difficulty swallowing. Patient reports when he came to the hospital he received nitroglycerin which relieved his pain. This morning he is rating his pain 3/10. He states the pain is worse with deep inspiration. He continues to have a frequent cough at the time of my examination. Patient does have a history of Covid in March 2020. Patient reports his dad from a heart attack when he was in his 50s. EKG reveals sinus bradycardia with no signs of acute ischemia Chest xray interval improvement in aeration compared to prior exam. Some residual patchy density suspected in the lower lobe of the left lung. Correlate for pneumonia, residual of prior Covid infection Laboratory data: WBC 5.5. Hemoglobin 14.0. Platelet count 174. Sodium 140. Potassium 3.9. BUN 20. Creatinine 1.03. D-dimer 0.21. Troponin negative 3. ProBNP 300. Current home cardiac medications include Zocor 20 mg daily and lisinopril 10 mg daily Patient underwent dobutamine stress test in 2016 which was negative for ischemia REVIEW OF SYSTEMS: At the time of my exam: CONSTITUTIONAL: Denies fever or chills. HEENT: Denies blurred vision, vision changes, or eye pain. Denies hemoptysis CARDIOVASCULAR: Denies chest pain. Denies orthopnea. Denies PND. Denies palpitations RESPIRATORY: Denies shortness of breath. GASTROINTESTINAL: Denies abdominal pain. Denies nausea or vomiting. HEMATOLOGIC: Denies bleeding disorders. GENITOURINARY: Denies any blood in urine. SKIN: Denies pruitis. Denies rash. PHYSICAL EXAM: VITAL SIGNS: Reviewed. GENERAL: Well-developed in no acute distress. HEENT: Head is normocephalic. Pupils are equal, round. Sclerae anicteric. Mucous membranes of the mouth are moist. Neck supple. No JVD or thyromegaly LUNGS: Respirations even and unlabored. Lungs essentially clear to auscultation bilaterally. HEART: Regular rate and rhythm. S1 and S2 heard. ABDOMEN: Soft. Nondistended. Nontender. EXTREMITIES: Normal range of motion. No clubbing or cyanosis. Peripheral pulses intact. No lower extremity edema NEUROLOGIC: Awake and alert. Oriented x 3. ASSESSMENT: Chest pain, atypical, troponin negative 3 Possible URI/Pneumonia History of Covid, March 2020 Hypertension Hyperlipidemia Family history of premature coronary artery disease PLAN: An acute coronary event has been ruled out Obtain 2D echo to assess cardiac structure and function Resume home cardiac medications Obtain ESR Discontinue IV heparin Further recommendations pending patient course Nurse practitioner note has been reviewed by physician. Signing provider agrees with the documented findings, assessment, and plan of care. Past Medical History Past Medical History: GERD/Reflux, Hyperlipidemia, Hypertension, Pneumonia Additional Past Medical History / Comment(s): covid pneumonia in 2020, abd. pain & burning for 5-6 months History of Any Multi-Drug Resistant Organisms: None Reported Past Surgical History: Orthopedic Surgery Additional Past Surgical History / Comment(s): rt shoulder arthroscopy, lt knee arthroscopy x2, rt knee arthroscopy, lt foot surgery x2 Past Anesthesia/Blood Transfusion Reactions: No Reported Reaction Past Psychological History: PTSD Smoking Status: Never smoker Past Alcohol Use History: None Reported Past Drug Use History: None Reported - Past Family History Mother Family Medical History: Cancer Additional Family Medical History / Comment(s): colon cancer with metastasis Father Family Medical History: Cancer Additional Family Medical History / Comment(s): oat cell cancer lung Medications and Allergies Home Medications Medication Instructions Recorded Confirmed Type Lisinopril [Zestril] 10 mg PO HS 04/01/20 11/13/20 History Sertraline HCl [Zoloft] 100 mg PO HS 04/01/20 11/13/20 History Simvastatin [Zocor] 20 mg PO HS 04/01/20 11/13/20 History Lansoprazole 30 mg PO HS 11/13/20 11/13/20 History Allergies Allergy/AdvReac Type Severity Reaction Status Date / Time Opioids - Morphine Analogues AdvReac Nausea & Verified 11/13/20 11:39 Vomiting Physical Exam Vitals: Vital Signs Temp Pulse Pulse Pulse Resp BP BP 11/14/20 07:00 98.1 F 49 L 18 144/91 11/14/20 02:06 97.7 F 47 L 16 132/78 11/14/20 02:05 52 L 52 L 16 11/13/20 19:42 52 L 52 L 16 11/13/20 19:05 98.4 F 52 L 16 148/82 11/13/20 16:29 11/13/20 16:00 98.5 F 46 L 17 146/67 11/13/20 15:47 98.2 F 54 L 18 137/71 11/13/20 12:33 52 L 18 11/13/20 12:28 49 L 18 139/77 11/13/20 10:31 98.2 F 51 L 20 165/85 Pulse Ox 11/14/20 07:00 95 11/14/20 02:06 96 11/14/20 02:05 11/13/20 19:42 11/13/20 19:05 95 11/13/20 16:29 97 11/13/20 16:00 96 11/13/20 15:47 100 11/13/20 12:33 11/13/20 12:28 96 11/13/20 10:31 98 Intake and Output 11/13/20 11/14/20 11/14/20 22:59 06:59 14:59 Intake Total 540 131.333 Balance 540 131.333 Intake: Intake, IV Titration 131.333 Amount Heparin Sod,Pork in 0.45% 131.333 NaCl 25,000 unit In 0.45 % NaCl 1 250ml.bag @ 8. 578 UNITS/KG/HR 10 mls/hr IV .Q24H [facility] Rx#: [id number] Oral 540 Other: Voiding Method Toilet Toilet # Voids 1 2 # Bowel Movements 0 Results 11/14/20 03:10 11/14/20 03:10 Cardiac Enzymes 11/13/20 11/13/20 11/13/20 Range/Units 11:01 11:01 15:27 AST 26 (17-59) U/L Troponin I <0.012 <0.012 (0.000-0.034) ng/mL 11/13/20 Range/Units 21:40 AST (17-59) U/L Troponin I <0.012 (0.000-0.034) ng/mL Coagulation 11/13/20 11/13/20 11/14/20 Range/Units 11:01 21:40 03:10 PT 10.6 (9.0-12.0) sec APTT 24.1 Not Reportable 34.4 H (22.0-30.0) sec CBC 11/13/20 11/13/20 11/14/20 Range/Units 11:01 21:40 03:10 WBC 7.6 6.5 5.5 (3.8-10.6) k/uL RBC 4.60 4.35 4.29 L (4.30-5.90) m/uL Hgb 15.2 14.3 14.0 (13.0-17.5) gm/dL Hct 42.9 40.9 39.6 (39.0-53.0) % Plt Count 190 154 174 (150-450) k/uL Comprehensive Metabolic Panel 11/13/20 11/13/20 11/14/20 Range/Units 11:01 21:40 03:10 Sodium 138 139 140 (137-145) mmol/L Potassium 3.8 3.8 3.9 (3.5-5.1) mmol/L Chloride 106 108 H 108 H (98-107) mmol/L Carbon Dioxide 24 25 27 (22-30) mmol/L BUN 15 19 20 (9-20) mg/dL Creatinine 0.92 1.04 1.03 (0.66-1.25) mg/dL Glucose 93 93 98 (74-99) mg/dL Calcium 9.2 8.9 9.0 (8.4-10.2) mg/dL AST 26 (17-59) U/L ALT 23 (4-49) U/L Alkaline Phosphatase 73 (38-126) U/L Total Protein 6.7 (6.3-8.2) g/dL Albumin 4.1 (3.5-5.0) g/dL Current Medications Generic Name Dose Route Start Last Admin Trade Name Yasmaniq PRN Reason Stop Dose Admin Acetaminophen 650 mg 11/13/20 20:06 11/13/20 20:15 Acetaminophen Tab 325 Mg Tab PO 650 mg Q6HR PRN Administration Fever and/ or Mild Pain Aspirin 81 mg 11/14/20 09:00 Aspirin 81 Mg PO DAILY [facility] Atorvastatin Calcium 80 mg 11/13/20 21:00 11/13/20 19:45 Atorvastatin 80 Mg Tab PO Not Given HS [facility] Heparin Sodium (Porcine) 0 unit 11/13/20 15:25 11/14/20 05:03 Heparin Sodium 1,000 Un/Ml (10ml Vl) IV 4,000 unit PER PROTOCOL PRN Administration Low PTT Protocol Heparin Sodium/Sodium Chloride 250 mls @ 10 mls/hr 11/13/20 15:45 11/14/20 04:53 25,000 unit/ Sodium Chloride IV 11.578 units/kg/hr .Q24H [facility] 13.497 mls/hr Titration Protocol 8.578 UNITS/KG/HR Lisinopril 10 mg 11/13/20 21:00 11/13/20 19:42 Lisinopril 10 Mg Tab PO 10 mg HS [facility] Administration Naloxone HCl 0.2 mg 11/13/20 14:25 Naloxone 0.4 Mg/Ml 1 Ml Vial IV Q2M PRN Opioid Reversal Nitroglycerin 0.4 mg 11/13/20 12:34 11/13/20 19:48 Nitroglycerin Sl Tabs 0.4 Mg Tab SUBLINGUAL 0.4 mg Q5M PRN Administration Chest Pain Pantoprazole Sodium 40 mg 11/13/20 21:00 11/13/20 19:42 Pantoprazole 40 Mg Tablet PO 40 mg HS [facility] Administration Sertraline HCl 100 mg 11/13/20 21:00 11/13/20 19:43 Sertraline 100 Mg Tab PO 100 mg HS [facility] Administration Intake and Output 11/13/20 11/14/20 11/14/20 22:59 06:59 14:59 Intake Total 540 131.333 Balance 540 131.333 Intake: Intake, IV Titration 131.333 Amount Heparin Sod,Pork in 0.45% 131.333 NaCl 25,000 unit In 0.45 % NaCl 1 250ml.bag @ 8. 578 UNITS/KG/HR 10 mls/hr IV .Q24H [facility] Rx#: [id number] Oral 540 Other: Voiding Method Toilet Toilet # Voids 1 2 # Bowel Movements 0 11/14/20 03:10 11/14/20 03:10
--- NOTE | 2020-11-14 10:55 | P.PN ---
<Josue Montgomery - Last Filed: 11/14/20 17:26> Subjective Progress Note Date: 11/14/20 Hospital course: Patient is a 55-year-old man with medical history of hypertension, hyperlipidemia, and acid reflux whom presented with chest pain. Patient stated that his pain began the evening of 11/12/20 while at rest and was felt to left anterior and substernal chest described as a pressure-like feeling described it as if an elephant was sitting on his chest. Patient also reported that his heart rate has been lower than normal for him often in the low 40s. He does report a cough without sputum production that he has had since his COVID infection back in April and also reports since that infection he gets short of breath with exertion and is more fatigued. In the emergency department a chest x-ray was completed showing interval improvement in aeration compared to prior examination with some residual patchy densities suspected in the left lower lobe likely residual of prior Covid infection. EKG completed showing sinus bradycardia at 50 bpm with no noted T-wave or ST abnormalities. Patient was admitted under our services with consultation to cardiology. 11/14/20: Patient seen and fully evaluated at the bedside this morning. He reports chest pain has improved but remains and currently rates at 2 out of 10. Troponins were trended and remained negative at less than 0.0123 draws. D-dimer negative. Labs unremarkable. Echocardiogram was completed revealing normal ejection fraction greater than 55% with mild mitral and tricuspid regurgitation and moderate pulmonary hypertension. Physical exam: Vital signs reviewed and stable. General: Nontoxic, no distress and appears stated age. Derm: Skin warm and dry, normal coloration for ethnicity. Head: Atraumatic, normocephalic and symmetric. Eyes: EOMs intact, no lid lag, and anicteric sclera Mouth: no lip lesions, mucus membranes moist Cardiovascular: regular rate and rhythm with normal S1S2, no murmur, positive posterior tibial pulses bilaterally, and cap refill < 2 seconds. Lungs: Respirations even, regular, and unlabored on room air. Lungs CTA bilaterally, no rhonchi, no rales, no wheezing, and no accessory muscle usage. Abdominal: soft, nontender to palpation, no guarding, no appreciable organomegaly Ext: ROM intact. No gross muscle atrophy, no edema, no contractures Neuro: Speech clear, face symmetrical and CN II-XII grossly intact with no noted focal neuro deficits Psych: Alert and oriented to person, place, time, and situation. Appropriate and pleasant affect. Assessment and Plan of Care: Atypical chest pain, acute coronary event ruled out Asymptomatic Bradycardia -Continue telemetry monitoring -Cardiology following, appreciate further recommendations -Troponins negative 3 -Nitro when necessary -EKG when necessary -Aspirin 81 mg daily -Atorvastatin 80 mg daily at bedtime -Hold off on beta viky given bradycardia -Lipid profile unremarkable. Hypertension -Monitor vital signs and continue daily medication regimen with lisinopril. Hyperlipidemia -Continue daily medication regimen with atorvastatin 80 mg nightly. -Heart healthy diet. GERD -Resume home medication regimen with Protonix. CODE STATUS: Full code DVT prophylaxis: Heparin Discussed with: Patient, and RN Anticipated discharge date: Possibly this evening, Likely tomorrow pending cardiology clearance as patient is medically stable for discharge Anticipated discharge place: Home A total of 45 minutes was spent on the care of this complex patient more than 50% of the time was spent in counseling and care coordination. Objective - Vital Signs Vital signs: Vital Signs Temp 98.1 F 11/14/20 07:00 Pulse 49 L 11/14/20 07:00 Resp 18 11/14/20 07:00 BP 144/91 11/14/20 07:00 Pulse Ox 95 11/14/20 07:00 Intake & Output 11/13/20 11/14/20 11/14/20 18:59 06:59 18:59 Intake Total 540 131.333 67.935 Balance 540 131.333 67.935 Weight 116.573 kg Intake: Intake, IV Titration 131.333 67.935 Amount Heparin Sod,Pork in 0.45% 131.333 67.935 NaCl 25,000 unit In 0.45 % NaCl 1 250ml.bag @ 8. 578 UNITS/KG/HR 10 mls/hr IV .Q24H [facility] Rx#: [id number] Oral 540 Other: Voiding Method Toilet Toilet # Voids 2 # Bowel Movements 0 - Labs CBC & Chem 7: 11/14/20 03:10 11/14/20 03:10 Labs: Abnormal Lab Results - Last 24 Hours (Table) 11/13/20 11/14/20 11/14/20 Range/Units 21:40 03:10 03:10 RBC 4.29 L (4.30-5.90) m/uL APTT (22.0-30.0) sec Chloride 108 H 108 H (98-107) mmol/L 11/14/20 Range/Units 03:10 RBC (4.30-5.90) m/uL APTT 34.4 H (22.0-30.0) sec Chloride (98-107) mmol/L <Sobia Davis A - Last Filed: 11/14/20 18:45> Objective - Vital Signs Vital signs: Vital Signs Temp 98.4 F 11/14/20 15:00 Pulse 48 L 11/14/20 15:00 Resp 18 11/14/20 15:00 BP 144/91 11/14/20 07:00 Pulse Ox 98 11/14/20 15:00 Intake & Output 11/13/20 11/14/20 11/14/20 18:59 06:59 18:59 Intake Total 540 131.333 307.935 Balance 540 131.333 307.935 Weight 116.573 kg Intake: Intake, IV Titration 131.333 67.935 Amount Heparin Sod,Pork in 0.45% 131.333 67.935 NaCl 25,000 unit In 0.45 % NaCl 1 250ml.bag @ 8. 578 UNITS/KG/HR 10 mls/hr IV .Q24H [facility] Rx#: [id number] Oral 540 240 Other: Voiding Method Toilet Toilet # Voids 2 2 # Bowel Movements 0 - Labs CBC & Chem 7: 11/14/20 03:10 11/14/20 03:10 Labs: Abnormal Lab Results - Last 24 Hours (Table) 11/13/20 11/14/20 11/14/20 Range/Units 21:40 03:10 03:10 RBC 4.29 L (4.30-5.90) m/uL APTT (22.0-30.0) sec Chloride 108 H 108 H (98-107) mmol/L 11/14/20 Range/Units 03:10 RBC (4.30-5.90) m/uL APTT 34.4 H (22.0-30.0) sec Chloride (98-107) mmol/L Assessment and Plan Assessment: Josue Montgomery NP rendered care for this patient independently, reviewed the findings and plan as documented in the note above. I did not physically speak with or examine the patient on this date.
[2020-11-14 11:25] LABS: Chol/HDL Ratio 4.16; Cholesterol 183 mg/dL (0-200); LDL Cholesterol,Calculated 123.4 mg/dL (0.0-131.0)
--- NOTE | 2020-11-14 13:20 | ECHOF ---
Referral Reason:chest pain MEASUREMENTS -------- HEIGHT: 162.6 cm WEIGHT: 116.6 kg BP: RVIDd: 3.1 cm (< 3.3) IVSd: 0.6 cm (0.6 - 1.1) LVIDd: 5.7 cm (3.9 - 5.3) LVPWd: 0.9 cm (0.6 - 1.1) IVSs: 1.4 cm LVIDs: 3.3 cm LVPWs: 1.8 cm LA Diam: 4.0 cm (2.7 - 3.8) Ao Diam: 3.0 cm (2.0 - 3.7) AV Cusp: 2.0 cm (1.5 - 2.6) MV EXCURSION: 17.701 mm (> 18.000) MV EF SLOPE: 90 mm/s (70 - 150) EPSS: 0.5 cm RAP: 5.00 mmHg RVSP: 47.51 mmHg FINDINGS -------- Sinus rhythm. This was a technically good study. LV size, wall thickness and systolic function are normal, with an EF greater than 55%. The left julieta tricular size is normal. The right ventricle is normal in size. Normal LA size by volume 22+/-6 ml/m2. The right atrial size is normal. The aortic valve is trileaflet, and appears structurally normal. No aortic stenosis or regurgitation. Mild mitral regurgitation is present. Mild tricuspid regurgitation present. There is moderate pulmonary hypertension. The right ventric ular systolic pressure, as measured by Doppler, is 47.51mmHg. There is no pulmonic regurgitation present. There is a small, generalized pericardial effusion present. CONCLUSIONS -------- 1. LV size, wall thickness and systolic function are normal, with an EF greater than 55%. 2. The left ventricular size is normal. 3. The right ventricle is normal in size. 4. Normal LA size by volume 22+/-6 ml/m2. 5. The right atrial size is normal. 6. The aortic valve is trileaflet, and appears structurally normal. No aortic stenosis or regurgitati on. 7. Mild mitral regurgitation is present. 8. Mild tricuspid regurgitation present. 9. There is moderate pulmonary hypertension. 10. The right ventricular systolic pressure, as measured by Doppler, is 47.51mmHg. 11. There is no pulmonic regurgitation present. 12. There is a small, generalized pericardial effusion present. OYSTER FISHERMAN: Gabrielle Gamble RDCS
[2020-11-14] MEDS: PANTOPRAZOLE 40 MG TABLET PO SCH (20:46)
[2020-11-14] MEDS: SERTRALINE 100 MG TAB PO SCH (20:46)
[2020-11-14] MEDS: lisinopriL 10 MG TAB PO SCH (20:46)
[2020-11-14] MEDS: ATORVASTATIN 80 MG TAB PO SCH (20:47)
[2020-11-14] MEDS: ACETAMINOPHEN TAB 325 MG TAB PO PRN (20:47)
[2020-11-15 00:29] LABS: Chol/HDL Ratio 4.05; Cholesterol 178 mg/dL (0-200); LDL Cholesterol,Calculated 117.8 mg/dL (0.0-131.0)
[2020-11-15 06:48] VITALS: BP 128/73; PULSE 44; RESP 18; TEMP 98
[2020-11-15] MEDS: ASPIRIN 81 MG PO SCH (07:38)
--- NOTE | 2020-11-15 09:18 | P.DS ---
<Josue Montgomery - Last Filed: 11/15/20 13:51> Providers Expected date of discharge: 11/15/20 Hospital Course: Discharge Diagnosis: Atypical chest pain, acute coronary event ruled out, pain believed to be secondary to pleurisy Asymptomatic Bradycardia Hypertension Hyperlipidemia GERD Hospital Course: Patient is a 55-year-old man with medical history of hypertension, hyperlipidemia, and acid reflux whom presented with chest pain. Patient stated that his pain began the evening of 11/12/20 while at rest and was felt to left anterior and substernal chest described as a pressure-like feeling described it as if an elephant was sitting on his chest. Patient also reported that his heart rate has been lower than normal for him often in the low 40s. He does report a cough without sputum production that he has had since his COVID infection back in April and also reports since that infection he gets short of breath with exertion and is more fatigued. In the emergency department a chest x-ray was completed showing interval improvement in aeration compared to prior examination with some residual patchy densities suspected in the left lower lobe likely residual of prior Covid infection. EKG completed showing sinus bradycardia at 50 bpm with no noted T-wave or ST abnormalities. Patient was admitted under our services with consultation to cardiology. Troponins were trended and remained negative at less than 0.0123 draws. D-dimer negative. Labs unremarkable. Echocardiogram was completed revealing normal ejection fraction greater than 55% with mild mitral and tricuspid regurgitation and moderate pulmonary hypertension. Acute coronary event has been ruled out. Patient cleared by cardiology for discharge home at this time and patient is medically stable for discharge home. Patient to follow-up with his primary care provider, Dr. Taylor in 1-2 days and with cardiology, Dr. Lr in 1 week. Physical exam: Vital signs reviewed and stable. General: Nontoxic, no distress and appears stated age. Derm: Skin warm and dry, normal coloration for ethnicity. Head: Atraumatic, normocephalic and symmetric. Eyes: EOMs intact, no lid lag, and anicteric sclera Mouth: no lip lesions, mucus membranes moist Cardiovascular: regular rate and rhythm with normal S1S2, no murmur, positive posterior tibial pulses bilaterally, and cap refill < 2 seconds. Lungs: Respirations even, regular, and unlabored on room air. Lungs CTA bilaterally, no rhonchi, no rales, no wheezing, and no accessory muscle usage. Abdominal: soft, nontender to palpation, no guarding, no appreciable organomegaly Ext: ROM intact. No gross muscle atrophy, no edema, no contractures Neuro: Speech clear, face symmetrical and CN II-XII grossly intact with no noted focal neuro deficits Psych: Alert and oriented to person, place, time, and situation. Appropriate and pleasant affect. A total of 45 minutes of time were spent preparing this complex discharge summary. Assessment: I reviewed the documentation as provided by the TY above, who is the original author of this note. I agree with the documented assessment and plan, with the following changes: None Patient Condition at Discharge: Stable Plan - Discharge Summary Discharge Rx Participant: No New Discharge Prescriptions: Continue Simvastatin [Zocor] 20 mg PO HS Sertraline HCl [Zoloft] 100 mg PO HS Lisinopril [Zestril] 10 mg PO HS Lansoprazole 30 mg PO HS Discharge Medication List Lisinopril [Zestril] 10 mg PO HS 04/01/20 [History] Sertraline HCl [Zoloft] 100 mg PO HS 04/01/20 [History] Simvastatin [Zocor] 20 mg PO HS 04/01/20 [History] Lansoprazole 30 mg PO HS 11/13/20 [History] Follow up Appointment(s)/Referral(s): Zechariah Lr MD [STAFF PHYSICIAN] - 1 Week Valente Taylor MD [Primary Care Provider] - 1-2 days Patient Instructions/Handouts: Chest Pain (DC) Activity/Diet/Wound Care/Special Instructions: activity as tolerated heart healthy diet Discharge Disposition: HOME SELF-CARE <Ryann Barrett - Last Filed: 11/15/20 15:30> Providers Date of admission: 11/13/20 12:16 Attending physician: Sobia Davis DO Primary care physician: Valente Taylor
== END 2020-11-15 10:00 | disposition home or self-care (01) ==
LOC: EC 10:30 → 6NMEDSUR 12:16
PROVIDERS: ADMIT Internal Medicine; ATTEND Internal Medicine
DX: R07.89 Other chest pain (principal); R07.2 Precordial pain; R00.1 Bradycardia, unspecified; R13.10 Dysphagia, unspecified; R05 Cough; R94.31 Abnormal electrocardiogram [ECG] [EKG]; I10 Essential (primary) hypertension; E78.5 Hyperlipidemia, unspecified; K21.9 Gastro-esophageal reflux disease without esophagitis; I27.20 Pulmonary hypertension, unspecified; F43.10 Post-traumatic stress disorder, unspecified; Z20.822 Contact with and (suspected) exposure to COVID-19; Z86.16 Personal history of COVID-19; Z87.01 Personal history of pneumonia (recurrent); Z79.899 Other long term (current) drug therapy; Z88.5 Allergy status to narcotic agent; Z82.49 Family history of ischemic heart disease and other diseases of the circulatory system; Z80.0 Family history of malignant neoplasm of digestive organs; Z80.1 Family history of malignant neoplasm of trachea, bronchus and lung
CPT/HCPCS: 96376 ×2; 96366 ×2; 96365; 96375; 99285; 36415; 94760; 93005; 93306; 85379; 83880; 80061 ×2; 80053; 80048 ×2; 85652; 83735 ×2; 84484; 85025 ×2; 85610; 85730 ×2; 82272; 83036; 87635; 71046; G0378 ×3; J1644 ×3; J1885

== ENCOUNTER → 2021-05-08 | Outpatient (CLI) | payer BC ==
--- NOTE | 2021-05-09 08:00 | ECHOF ---
Referral Reason:I27.20 pulmonary hypertension MEASUREMENTS -------- HEIGHT: 180.3 cm WEIGHT: 117.9 kg BP: 141/81 RVIDd: 3.0 cm (< 3.3) IVSd: 1.1 cm (0.6 - 1.1) LVIDd: 5.0 cm (3.9 - 5.3) LVPWd: 1.1 cm (0.6 - 1.1) IVSs: 1.6 cm LVIDs: 3.1 cm LVPWs: 1.6 cm LA Diam: 3.4 cm (2.7 - 3.8) LAESV Index (A-L): 23.94 ml/m Ao Diam: 3.3 cm (2.0 - 3.7) AV Cusp: 1.9 cm (1.5 - 2.6) MV EXCURSION: 15.618 mm (> 18.000) MV EF SLOPE: 84 mm/s (70 - 150) EPSS: 0.6 cm MV E Isidro: 0.90 m/s MV DecT: 223 ms MV A Isidro: 1.00 m/s MV E/A Ratio: 0.90 AV maxP.86 mmHg AV meanP.09 mmHg RAP: 5.00 mmHg RVSP: 30.18 mmHg FINDINGS -------- Sinus rhythm. This was a technically adequate study. The left ventricular size is normal. There is borderline concentric left ventricular hypertrophy. Overall left ventricular systolic function is normal with, an EF between 55 - 60 %. The right ventricle is normal in size. Normal LA size by volume 22+/-6 ml/m2. The right atrium is normal in size. Interatrial and interventricular septum intact. The aortic valve is trileaflet, and appears structurally normal. No aortic stenosis or regurgitation. There is trace mitral regurgitation. Mild tricuspid regurgitation present. Right ventricular systolic pressure is normal at < 35 mmHg. The right ventricular systolic pressure, as measured by Doppler, is 30.18mmHg. The pulmonic valve is normal. The aortic root size is normal. Normal inferior vena cava with normal inspiratory collapse consistent with estimated right atrial pre ssure of 5 mmHg. There is no pericardial effusion. CONCLUSIONS -------- 1. The left ventricular size is normal. 2. There is borderline concentric left ventricular hypertrophy. 3. Overall left ventricular systolic function is normal with, an EF between 55 - 60 %. 4. There is trace mitral regurgitation. 5. Mild tricuspid regurgitation present. 6. Right ventricular systolic pressure is normal at < 35 mmHg. 7. The right ventricular systolic pressure, as measured by Doppler, is 30.18mmHg. 8. There is no pericardial effusion. DELIVERY ENGINEER: Jessie Sevilla RDCS
== END | disposition home or self-care (01) ==
LOC: RADECHMAIN 16:22
PROVIDERS: ATTEND Internal Medicine Critical Care Medicine
DX: I27.20 Pulmonary hypertension, unspecified (principal); I34.0 Nonrheumatic mitral (valve) insufficiency; I07.1 Rheumatic tricuspid insufficiency
CPT/HCPCS: 93306

== ENCOUNTER 2021-10-19 17:36 | Observation (INO) | payer BC ==
--- NOTE | 2021-10-19 19:05 | ED ---
Abdominal Pain HPI - General Chief Complaint: Abdominal Pain Stated Complaint: Abd Pain Time Seen by Provider: 10/19/21 17:55 Source: patient Mode of arrival: ambulatory Limitations: no limitations - History of Present Illness Initial Comments: Patient is a 56-year-old male with past history of high cholesterol, hypertension who presents to the emergency department with generalized abdominal pain. States that it was present when he awoke this morning. It is worse with movement. Admits to some associated nausea without vomiting. Did have a bowel movement today. Denies black or bloody stools. No changes in his urination to include dysuria, hematuria or voiding. Denies alcohol use. Has had 1 recent medication change. States he is taking half of his Zoloft and just recently started Pristiq. Denies NSAID use. No alcohol use. Has history of high cholesterol however has been well-controlled on Zocor. I did have laboratory studies conducted this morning at [facility] including a lipid panel. He denies any chest pain or shortness of breath. No previous abdominal surgeries. Denies any testicular pain or swelling. No other alleviating, precipitating or modifying factors - Related Data Home Medications Medication Instructions Recorded Confirmed Simvastatin [Zocor] 20 mg PO HS 04/01/20 10/19/21 lisinopriL [Zestril] 10 mg PO HS 04/01/20 10/19/21 Lansoprazole 30 mg PO DAILY 11/13/20 10/19/21 Desvenlafaxine Succinate [Pristiq 50 mg PO HS 10/19/21 10/19/21 ER] Famotidine [Pepcid] 20 mg PO BID PRN 10/19/21 10/19/21 Allergies Allergy/AdvReac Type Severity Reaction Status Date / Time Opioids - Morphine Analogues AdvReac Nausea & Verified 10/19/21 21:36 Vomiting Opioids-Meperidine and AdvReac Nausea & Verified 10/19/21 21:36 Related Vomiting Opioids-Methadone and Related AdvReac Nausea & Verified 10/19/21 21:36 Vomiting Review of Systems ROS Statement: Those systems with pertinent positive or pertinent negative responses have been documented in the HPI. ROS Other: All systems not noted in ROS Statement are negative. Past Medical History Past Medical History: Asthma, Hypertension Additional Past Medical History / Comment(s): covid pneumonia in 2020, abd. pain & burning for 5-6 months History of Any Multi-Drug Resistant Organisms: None Reported Past Surgical History: Orthopedic Surgery Additional Past Surgical History / Comment(s): rt shoulder arthroscopy, lt knee arthroscopy x2, rt knee arthroscopy, lt foot surgery x2 Past Anesthesia/Blood Transfusion Reactions: No Reported Reaction Past Psychological History: PTSD Smoking Status: Never smoker Past Alcohol Use History: None Reported Past Drug Use History: None Reported - Past Family History Mother Family Medical History: Cancer Additional Family Medical History / Comment(s): colon cancer with metastasis to liver and brain Father Family Medical History: Cancer Additional Family Medical History / Comment(s): oat cell cancer lung General Exam Limitations: no limitations General appearance: alert, in no apparent distress Head exam: Present: atraumatic, normocephalic, normal inspection Eye exam: Present: normal appearance, PERRL, EOMI. Absent: scleral icterus, conjunctival injection, periorbital swelling ENT exam: Present: normal exam, mucous membranes moist Neck exam: Present: normal inspection. Absent: tenderness, meningismus, lymphadenopathy Respiratory exam: Present: normal lung sounds bilaterally. Absent: respiratory distress, wheezes, rales, rhonchi, stridor Cardiovascular Exam: Present: regular rate, normal rhythm, normal heart sounds. Absent: systolic murmur, diastolic murmur, rubs, gallop, clicks GI/Abdominal exam: Present: soft, tenderness (epigastric), normal bowel sounds. Absent: distended, guarding, rebound, rigid Extremities exam: Present: normal inspection, full ROM, normal capillary refill. Absent: tenderness, pedal edema, joint swelling, calf tenderness Back exam: Present: normal inspection Neurological exam: Present: alert, oriented X3, CN II-XII intact Psychiatric exam: Present: normal affect, normal mood Skin exam: Present: warm, dry, intact, normal color. Absent: rash Course Vital Signs 10/19/21 10/19/21 10/19/21 17:50 23:00 23:39 Temperature 98.4 F 98.1 F Pulse Rate 75 69 68 Respiratory 20 18 18 Rate Blood Pressure 151/83 119/71 120/73 O2 Sat by Pulse 96 96 97 Oximetry Medical Decision Making - Medical Decision Making Upon arrival patient was placed into room 18. Thorough history and physical exam was performed. IV access established. I did offer him something for pain and nausea however patient refused. Laboratory studies reviewed. White count 16.9. Creatinine 2.1. Lipase is 8938. CT does demonstrate signs of acute pancreatitis. IV fluids ordered. Recommended admission for which the patient was agreeable to. Spoke with Dr. Nam who agreed to admit the patient - Lab Data Result diagrams: 10/21/21 04:04 10/21/21 04:04 Lab Results 10/19/21 10/19/21 10/19/21 Range/Units 19:39 19:39 19:39 WBC 16.9 H (3.8-10.6) k/uL RBC 6.11 H (4.30-5.90) m/uL Hgb 18.6 H (13.0-17.5) gm/dL Hct 56.8 H (39.0-53.0) % MCV 93.0 (80.0-100.0) fL MCH 30.4 (25.0-35.0) pg MCHC 32.7 (31.0-37.0) g/dL RDW 15.0 (11.5-15.5) % Plt Count 354 (150-450) k/uL MPV 7.2 Neutrophils % 82 % Lymphocytes % 7 % Monocytes % 7 % Eosinophils % 1 % Basophils % 1 % Neutrophils # 13.8 H (1.3-7.7) k/uL Lymphocytes # 1.2 (1.0-4.8) k/uL Monocytes # 1.2 H (0-1.0) k/uL Eosinophils # 0.2 (0-0.7) k/uL Basophils # 0.1 (0-0.2) k/uL Sodium 136 L (137-145) mmol/L Potassium 4.9 (3.5-5.1) mmol/L Chloride 98 (98-107) mmol/L Carbon Dioxide 25 (22-30) mmol/L Anion Gap 13 mmol/L BUN 30 H (9-20) mg/dL Creatinine 2.10 H (0.66-1.25) mg/dL Est GFR (CKD-EPI)AfAm 40 (>60 ml/min/1.73 sqM) Est GFR (CKD-EPI)NonAf 34 (>60 ml/min/1.73 sqM) Glucose 106 H (74-99) mg/dL Plasma Lactic Acid Kenny 1.0 (0.7-2.0) mmol/L Calcium 9.3 (8.4-10.2) mg/dL Total Bilirubin 1.5 H (0.2-1.3) mg/dL AST 55 (17-59) U/L ALT 60 H (4-49) U/L Alkaline Phosphatase 65 (38-126) U/L Total Protein 6.9 (6.3-8.2) g/dL Albumin 4.3 (3.5-5.0) g/dL Lipase 8938 H (23-300) U/L Urine Color Urine Appearance (Clear) Urine pH (5.0-8.0) Ur Specific [place] (1.001-1.035) Urine Protein (Negative) Urine Glucose (UA) (Negative) Urine Ketones (Negative) Urine Blood (Negative) Urine Nitrite (Negative) Urine Bilirubin (Negative) Urine Urobilinogen (<2.0) mg/dL Ur Leukocyte Esterase (Negative) Urine RBC (0-5) /hpf Urine WBC (0-5) /hpf Ur Squamous Epith Cells (0-4) /hpf Urine Bacteria (None) /hpf Hyaline Casts (0-2) /lpf Urine Mucus (None) /hpf 10/19/21 Range/Units 20:11 WBC (3.8-10.6) k/uL RBC (4.30-5.90) m/uL Hgb (13.0-17.5) gm/dL Hct (39.0-53.0) % MCV (80.0-100.0) fL MCH (25.0-35.0) pg MCHC (31.0-37.0) g/dL RDW (11.5-15.5) % Plt Count (150-450) k/uL MPV Neutrophils % % Lymphocytes % % Monocytes % % Eosinophils % % Basophils % % Neutrophils # (1.3-7.7) k/uL Lymphocytes # (1.0-4.8) k/uL Monocytes # (0-1.0) k/uL Eosinophils # (0-0.7) k/uL Basophils # (0-0.2) k/uL Sodium (137-145) mmol/L Potassium (3.5-5.1) mmol/L Chloride (98-107) mmol/L Carbon Dioxide (22-30) mmol/L Anion Gap mmol/L BUN (9-20) mg/dL Creatinine (0.66-1.25) mg/dL Est GFR (CKD-EPI)AfAm (>60 ml/min/1.73 sqM) Est GFR (CKD-EPI)NonAf (>60 ml/min/1.73 sqM) Glucose (74-99) mg/dL Plasma Lactic Acid Kenny (0.7-2.0) mmol/L Calcium (8.4-10.2) mg/dL Total Bilirubin (0.2-1.3) mg/dL AST (17-59) U/L ALT (4-49) U/L Alkaline Phosphatase (38-126) U/L Total Protein (6.3-8.2) g/dL Albumin (3.5-5.0) g/dL Lipase (23-300) U/L Urine Color Yellow Urine Appearance Cloudy (Clear) Urine pH 6.0 (5.0-8.0) Ur Specific [place] 1.031 (1.001-1.035) Urine Protein 2+ H (Negative) Urine Glucose (UA) Negative (Negative) Urine Ketones Negative (Negative) Urine Blood Negative (Negative) Urine Nitrite Negative (Negative) Urine Bilirubin 1+ H (Negative) Urine Urobilinogen 2.0 (<2.0) mg/dL Ur Leukocyte Esterase Negative (Negative) Urine RBC 2 (0-5) /hpf Urine WBC 2 (0-5) /hpf Ur Squamous Epith Cells <1 (0-4) /hpf Urine Bacteria Rare H (None) /hpf Hyaline Casts 16 H (0-2) /lpf Urine Mucus Moderate H (None) /hpf Disposition Clinical Impression: Abdominal pain, Pancreatitis, ITA (acute kidney injury) Disposition: ADMITTED IP TO THIS [facility] Condition: Stable Is patient prescribed a controlled substance at d/c from ED?: No Time of Disposition: 21:05 Decision to Admit Reason: Admit from EC Decision Date: 10/19/21 Decision Time: 21:05
[2021-10-19 19:58] LABS: Albumin 4.3 g/dL (3.5-5.0); Calcium 9.3 mg/dL (8.4-10.2); Potassium 4.9 mmol/L (3.5-5.1); Total Bilirubin 1.5 mg/dL (0.2-1.3); Total Protein 6.9 g/dL (6.3-8.2)
[2021-10-19 20:01] LABS: Basophils # (A) 0.1 k/uL (0-0.2); Basophils % (A) 1 %; Eosinophils # (A) 0.2 k/uL (0-0.7); Eosinophils % (A) 1 %; HGB 18.6 gm/dL (13.0-17.5); Lymphocytes # (A) 1.2 k/uL (1.0-4.8); Lymphocytes % (A) 7 %; MCH 30.4 pg (25.0-35.0); MCHC 32.7 g/dL (31.0-37.0); Mean Platelet Volume 7.2; Monocytes # (A) 1.2 k/uL (0-1.0); Monocytes % (A) 7 %; Neutrophils # (A) 13.8 k/uL (1.3-7.7); Neutrophils % (A) 82 %; Platelet Count 354 k/uL (150-450); RBC 6.11 m/uL (4.30-5.90); WBC 16.9 k/uL (3.8-10.6)
[2021-10-19 20:11] LABS: HCT 56.8 % (39.0-53.0)
--- NOTE | 2021-10-19 20:40 | CT ---
EXAMINATION TYPE: CT abdomen pelvis w con DATE OF EXAM: 10/19/2021 COMPARISON: 12/04/2016 HISTORY: Abdominal pain, tenderness CT DLP: 1685.1 mGycm Automated exposure control for dose reduction was used. CONTRAST: Performed with IV Contrast, patient injected with 100 mL of Isovue 300. Images obtained from the diaphragm through the floor the pelvis with the IV contrast. There is some atelectasis at the lung bases. Heart size is normal. No pericardial effusion. No pleura l effusion. Liver and spleen are intact. The stomach is intact. Gallbladder appears normal. The bile ducts are not dilated. There is retroperitoneal fat stranding around the pancreas and anterior left-sided pararenal space. T here is minimal fluid also in the right anterior pararenal space. There is no adrenal mass. Kidneys show satisfactory contrast opacification. There is no hydronephrosi s. Ureters are not dilated. No retroperitoneal adenopathy. Bladder distends smoothly. There is some f ree fluid in the cul-de-sac. There is prostate calcification. No inguinal hernia. There is no ascites or free air. There is no sign of a bowel obstruction. Appendix appears normal. The lumbar vertebra appear normal. There is hemangioma of the L4 vertebral body. The bony pelvis is i ntact. No lumbar compression fracture. The hip joints are intact. IMPRESSION: Retroperitoneal fluid consistent with acute pancreatitis. No pancreatic mass. Abnormality appears new compared to old exam.
[2021-10-19 20:45] LABS: Appearance,Urine Cloudy (Clear); Bacteria,Urine Rare /hpf; Bilirubin,Urine 1+ (Negative); Blood,Urine Negative (Negative); Color,Urine Yellow; Glucose,Urine (UA) Negative (Negative); Hyaline Casts,Urine 16 /lpf (0-2); Ketones,Urine Negative (Negative); Leukocyte Esterase,Urine Negative (Negative); Mucus,Urine Moderate /hpf; Nitrite,Urine Negative (Negative); Protein,Urine 2+ (Negative); RBC,Urine 2 /hpf (0-5); Specific Gravity,Urine 1.031 (1.001-1.035); Squamous Epithelial Cell,Urine <1 /hpf (0-4); WBC,Urine 2 /hpf (0-5)
[2021-10-19] MEDS ORDERED: SODIUM CHLORIDE 0.9% 1,000 ML IV ONE (20:51)
[2021-10-19] MEDS ORDERED: LACTATED RINGERS 1,000 ML IV ONE (20:53)
[2021-10-19] MEDS ORDERED: SODIUM CHLORIDE 0.9% 1,000 ML IV STA (20:54)
[2021-10-19] MEDS ORDERED: PANTOPRAZOLE 40 MG/10 ML VIAL IVP STA (21:06)
[2021-10-19] MEDS ORDERED: ONDANSETRON 4 MG/2 ML VIAL IVP PRN (21:16)
[2021-10-19] MEDS ORDERED: NALOXONE 0.4 MG/ML 1 ML VIAL IV PRN (21:16)
--- NOTE | 2021-10-19 21:39 | US ---
EXAMINATION TYPE: US gallbladder DATE OF EXAM: 10/19/2021 COMPARISON: Same day CT CLINICAL HISTORY: pancreatitis workup. Pain, pancreatitis TECHNIQUE: Multiple sonographic images of the right upper quadrant are obtained. FINDINGS: EXAM MEASUREMENTS: Liver Length: 18.4 cm Gallbladder Wall: 0.4 cm CBD: 0.4 cm Right Kidney: 12.3 x 5.6 x 4.9 cm [employer] NOTES:Pt in too much pain to roll in LLD position Pancreas: Obscured by bowel gas Liver: Upper limits of normal for size Gallbladder: lumen clear, wall slightly thickened Evidence for sonographic Avila's sign: Yes CBD: wnl Right Kidney: wnl, lower pole gassed out IMPRESSION: No gallstones or dilated ducts. No focal liver defect.
[2021-10-20] MEDS: MORPHINE SULFATE 4 MG/ML SYRINGE IVP PRN ×5 (00:27→21:28)
--- NOTE | 2021-10-20 00:30 | P.HPIM ---
History of Present Illness H&P Date: 10/19/21 Chief Complaint: abd pain 56 year old male with hypertension , hyperlipidemia patient comes in for diffuse abd pain, associated with nausea and vomiting. denies any fever or chills, denies any changes in bowel or urinary habits. pain started this morning when he woke up and progressed throughout the day, he later threw up his breakfast , non bilious non bloody, no history of GI bleeding .pain is severe diffused 8-10/10 in severity. he denies any similar episodes in the past. pain is diffused but non radiating . he denies any recent illness or hospital stay , no GI bleed, no history of peptic ulcers. he recently changed his zoloft to pristiq few days ago. workup in the ED showed elevated WBC, polycythemia , ITA, and elevated lipase. CT abd showed evidence of acute pancreatitis Gall bladder US showed no abdnormalities patient quit alcohol 10 years ago. denies any smoking or illicit drugs Review of Systems Pertinent positives as noted in HPI. All other systems were reviewed and are negative Past Medical History Past Medical History: Asthma, Hypertension Additional Past Medical History / Comment(s): covid pneumonia in . 2020, abd. pain & burning for 5-6 months History of Any Multi-Drug Resistant Organisms: None Reported Past Surgical History: Orthopedic Surgery Additional Past Surgical History / Comment(s): rt shoulder arthroscopy, lt knee arthroscopy x2, rt knee arthroscopy, lt foot surgery x2 Past Anesthesia/Blood Transfusion Reactions: No Reported Reaction Past Psychological History: PTSD Smoking Status: Never smoker Past Alcohol Use History: None Reported Past Drug Use History: None Reported - Past Family History Mother Family Medical History: Cancer Additional Family Medical History / Comment(s): colon cancer with metastasis to liver and brain Father Family Medical History: Cancer Additional Family Medical History / Comment(s): oat cell cancer lung Medications and Allergies Home Medications Medication Instructions Recorded Confirmed Type Simvastatin [Zocor] 20 mg PO HS 04/01/20 10/19/21 History lisinopriL [Zestril] 10 mg PO HS 04/01/20 10/19/21 History Lansoprazole 30 mg PO DAILY 11/13/20 10/19/21 History Desvenlafaxine Succinate [Pristiq 50 mg PO HS 08/20/22 08/20/22 History ER] Famotidine [Pepcid] 20 mg PO BID PRN 10/19/21 10/19/21 History Allergies Allergy/AdvReac Type Severity Reaction Status Date / Time Opioids - Morphine Analogues AdvReac Nausea & Verified 10/19/21 21:36 Vomiting Opioids-Meperidine and AdvReac Nausea & Verified 10/19/21 21:36 Related Vomiting Opioids-Methadone and Related AdvReac Nausea & Verified 10/19/21 21:36 Vomiting Physical Exam Vitals: Vital Signs Temp Pulse Pulse Resp BP BP Pulse Ox 10/19/21 23:50 98.5 F 63 15 123/73 97 10/19/21 23:39 98.1 F 68 18 120/73 97 10/19/21 23:00 69 18 119/71 96 10/19/21 17:50 98.4 F 75 20 151/83 96 Intake and Output 10/19/21 10/19/21 10/20/21 14:59 22:59 06:59 Other: Weight 115.666 kg Constitutional: No acute distress, conversant, pleasant Eyes: Anicteric sclerae, moist conjunctiva, Pupils equal round reactive to light ENMT: NC/AT Oropharynx clear, no erythema, or exudates Neck: Supple, FROM, no masses, or JVD No carotid bruits No thyromegaly Lungs: Clear to auscultation Clear to percussion Normal respiratory effort, no accessory muscle use Cardiovascular: Heart regular in rate and rhythm, No murmurs, gallops, or rubs No peripheral edema Abdominal: Soft diffuse tenderness to deep palpation, with rebound tenderness, no guarding, or rigidity Abdomen moving with respiration Normoactive bowel sounds No hepatomegaly, No splenomegaly No palpable mass No abdominal wall hernia noted Skin: Normal temperature, tone, texture, turgor No induration No subcutaneous nodules No rash, lesions No ulcers Extremities: No digital cyanosis No clubbing Pedal pulses intact and symmetrical Radial pulses intact and symmetrical No calf tenderness Psychiatric: Alert and oriented to person, place and time Appropriate affect fair judgement Neuro Muscles Strength 5/5 in all 4 extremities Sensation to light touch grossly present throughout Cranial nerves II-XII grossly intact No focal sensory deficits Lymphatics: no palpable cervical or supraclavicular , or inguinal lymph nodes Results CBC & Chem 7: 10/19/21 19:39 10/19/21 19:39 Labs: Abnormal Lab Results - Last 24 Hours (Table) 10/19/21 10/19/21 10/19/21 Range/Units 19:39 19:39 20:11 WBC 16.9 H (3.8-10.6) k/uL RBC 6.11 H (4.30-5.90) m/uL Hgb 18.6 H (13.0-17.5) gm/dL Hct 56.8 H (39.0-53.0) % Neutrophils # 13.8 H (1.3-7.7) k/uL Monocytes # 1.2 H (0-1.0) k/uL Sodium 136 L (137-145) mmol/L BUN 30 H (9-20) mg/dL Creatinine 2.10 H (0.66-1.25) mg/dL Glucose 106 H (74-99) mg/dL Total Bilirubin 1.5 H (0.2-1.3) mg/dL ALT 60 H (4-49) U/L Lipase 8938 H (23-300) U/L Urine Protein 2+ H (Negative) Urine Bilirubin 1+ H (Negative) Urine Bacteria Rare H (None) /hpf Hyaline Casts 16 H (0-2) /lpf Urine Mucus Moderate H (None) /hpf Assessment and Plan Assessment: acute pancreatitis ITA denies alcohol consumption gall bladder US no gall stones elevated lipase check triglycerides patient on lisinopril and simvastatin which can cause pancreatitis as a rare side effect aggressive IVF hydration s/p 2 L boluses of normal saline lactated ringer @200 cc per hour NPO morphine PRN for pain control monitor renal function monitor urine output hold nephrotoxic meds chronic conditions hypertension hyperlipidemia DVT PPX heparin sc tid full code
[2021-10-20] MEDS ORDERED: LACTATED RINGERS 1,000 ML IV ONE (02:00)
[2021-10-20] MEDS: LACTATED RINGERS 1,000 ML IV SCH ×5 (02:31→21:33)
[2021-10-20 05:30] LABS: Basophils # (A) 0.1 k/uL (0-0.2); Basophils % (A) 1 %; Eosinophils # (A) 0.4 k/uL (0-0.7); Eosinophils % (A) 3 %; HCT 51.1 % (39.0-53.0); HGB 15.9 gm/dL (13.0-17.5); Lymphocytes # (A) 1.3 k/uL (1.0-4.8); Lymphocytes % (A) 9 %; MCH 29.3 pg (25.0-35.0); MCHC 31.1 g/dL (31.0-37.0); MCV 94.3 fL (80.0-100.0); Mean Platelet Volume 7.3; Monocytes % (A) 7 %; Neutrophils # (A) 10.8 k/uL (1.3-7.7); Neutrophils % (A) 78 %; Platelet Count 281 k/uL (150-450); RBC 5.42 m/uL (4.30-5.90); RDW 14.6 % (11.5-15.5); WBC 13.9 k/uL (3.8-10.6)
[2021-10-20 05:44] LABS: Calcium 8.3 mg/dL (8.4-10.2); Potassium 5.1 mmol/L (3.5-5.1)
[2021-10-20] MEDS: HEPARIN SODIUM,PORCINE/PF 5,000 UNIT/0.5 ML SYRINGE SQ SCH ×3 (08:06→23:52)
[2021-10-20 09:33] LABS: Chol/HDL Ratio 13.57 Ratio; LDL Cholesterol,Calculated 203.5 mg/dL (0.0-131.0)
[2021-10-20] MEDS: PANTOPRAZOLE 40 MG TABLET PO SCH (11:26)
--- NOTE | 2021-10-20 12:20 | P.PN ---
Subjective Progress Note Date: 10/20/21 Principal diagnosis: Acute pancreatitis She is a 56-year-old male with a remote history of alcohol use presents with abdominal pain. Emergency room patient's workup showed a leukocytosis of 16.9, hemoglobin 15.9, platelet count 281. The patient had a BUNs of 30, creatinine 2.1. CT of the abdomen showed acute pancreatitis. The patient had a lipase of 8939 with a negative gallbladder ultrasound 10/20: The patient continues to have abdominal pain his lipase is trending down to 3232 Objective - Vital Signs Vital signs: Vital Signs Temp 98.7 F 10/20/21 11:30 Pulse 67 10/20/21 11:30 Resp 16 10/20/21 11:30 BP 153/75 10/20/21 11:30 Pulse Ox 95 10/20/21 11:30 FiO2 Intake & Output 10/19/21 10/20/21 10/20/21 18:59 06:59 18:59 Intake Total 1400 Balance 1400 Weight 115.666 kg 115.666 kg Intake: Intake, IV Titration 1400 Amount Lactated Ringers 1,000 ml 1400 @ 200 mls/hr IV .Q5H [facility] Rx#:[id number] Other: Voiding Method Toilet Toilet # Voids 2 - Constitutional General appearance: Present: no acute distress - EENT Eyes: Present: PERRLA - Respiratory Respiratory: bilateral: CTA - Cardiovascular Rhythm: regular - Gastrointestinal General gastrointestinal: Present: normal bowel sounds Localized gastrointestinal: tender: diffuse - Integumentary Integumentary: Present: normal - Labs CBC & Chem 7: 10/20/21 04:52 10/20/21 04:52 Labs: Abnormal Lab Results - Last 24 Hours (Table) 10/19/21 10/19/21 10/19/21 Range/Units 19:39 19:39 20:11 WBC 16.9 H (3.8-10.6) k/uL RBC 6.11 H (4.30-5.90) m/uL Hgb 18.6 H (13.0-17.5) gm/dL Hct 56.8 H (39.0-53.0) % Neutrophils # 13.8 H (1.3-7.7) k/uL Monocytes # 1.2 H (0-1.0) k/uL Sodium 136 L (137-145) mmol/L BUN 30 H (9-20) mg/dL Creatinine 2.10 H (0.66-1.25) mg/dL Glucose 106 H (74-99) mg/dL Calcium (8.4-10.2) mg/dL Total Bilirubin 1.5 H (0.2-1.3) mg/dL ALT 60 H (4-49) U/L Cholesterol (0.00-200.00) mg/dL LDL Cholesterol, Calc (0.0-131.0) mg/dL HDL Cholesterol (40.00-60.00) mg/dL Lipase 8938 H (23-300) U/L Urine Protein 2+ H (Negative) Urine Bilirubin 1+ H (Negative) Urine Bacteria Rare H (None) /hpf Hyaline Casts 16 H (0-2) /lpf Urine Mucus Moderate H (None) /hpf 10/20/21 10/20/21 10/20/21 Range/Units 04:52 04:52 04:52 WBC 13.9 H (3.8-10.6) k/uL RBC (4.30-5.90) m/uL Hgb (13.0-17.5) gm/dL Hct (39.0-53.0) % Neutrophils # 10.8 H (1.3-7.7) k/uL Monocytes # (0-1.0) k/uL Sodium 134 L (137-145) mmol/L BUN 25 H (9-20) mg/dL Creatinine 1.68 H (0.66-1.25) mg/dL Glucose 100 H (74-99) mg/dL Calcium 8.3 L (8.4-10.2) mg/dL Total Bilirubin (0.2-1.3) mg/dL ALT (4-49) U/L Cholesterol 251.00 H (0.00-200.00) mg/dL LDL Cholesterol, Calc 203.5 H (0.0-131.0) mg/dL HDL Cholesterol 18.50 L (40.00-60.00) mg/dL Lipase 3232 H (23-300) U/L Urine Protein (Negative) Urine Bilirubin (Negative) Urine Bacteria (None) /hpf Hyaline Casts (0-2) /lpf Urine Mucus (None) /hpf Assessment and Plan (1) Pancreatitis Narrative/Plan: Continue IV pain medications, keep patient nothing by mouth, lipase trending down. The patient continues to improve them may have clear liquids I did this evening or tomorrow morning Current Visit: Yes Status: Acute Code(s): K85.90 - ACUTE PANCREATITIS WITHOUT NECROSIS OR INFECTION, UNSP SNOMED Code(s): 10206340 (2) ITA (acute kidney injury) Narrative/Plan: Continue IV fluids creatinine improved from 2.1-1.68 Current Visit: Yes Status: Acute Code(s): N17.9 - ACUTE KIDNEY FAILURE, UNSPECIFIED SNOMED Code(s): 19023290 (3) Depression Narrative/Plan: Continue Pristiq Current Visit: Yes Status: Acute Code(s): F32.A - DEPRESSION, UNSPECIFIED SNOMED Code(s): 30965274 Plan: IV pain control, bowel rest, IV fluids, heparin SC for DVT prophylaxis
[2021-10-20] MEDS: DESVENLAFAXINE SUCCINATE 50 MG TAB.ER.24H PO SCH (21:28)
[2021-10-21] MEDS: LACTATED RINGERS 1,000 ML IV SCH ×4 (02:35→20:13)
[2021-10-21] MEDS: HEPARIN SODIUM,PORCINE/PF 5,000 UNIT/0.5 ML SYRINGE SQ SCH ×3 (08:20→22:08)
[2021-10-21] MEDS: PANTOPRAZOLE 40 MG TABLET PO SCH (08:21)
[2021-10-21 09:12] LABS: Basophils # (A) 0.05 X 10*3/uL (0.00-0.10); Basophils % (A) 0.5 %; Eosinophils # (A) 0.15 X 10*3/uL (0.04-0.35); Eosinophils % (A) 1.4 %; HCT 48.1 % (39.6-50.0); HGB 15.3 g/dL (13.0-17.0); Lymphocytes # (A) 1.33 X 10*3/uL (0.90-5.00); MCH 29.4 pg (27.0-32.0); MCHC 31.8 g/dL (32.0-37.0); MCV 92.3 fL (80.0-97.0); Mean Platelet Volume 10.7 fL (9.5-12.2); Monocytes # (A) 0.88 X 10*3/uL (0.20-1.00); NRBC Per 100 WBC 0 /100 WBCS (0.0-0.0); Neutrophils # (A) 8.52 X 10*3/uL (1.80-7.70); Neutrophils % (A) 77.1 %; Platelet Count 292 X 10*3/uL (140-440); RBC 5.21 X 10*6/uL (4.40-5.60); RDW 14.9 % (11.5-14.5); WBC 11.04 X 10*3/uL (4.50-10.00)
[2021-10-21 09:26] LABS: African American GFR (CKD) 71.2 (60.0-200.0); Anion Gap 11.3 mmol/L (10.00-18.00); BUN/Creat Ratio 11.77 Ratio (12.00-20.00); Blood Urea Nitrogen 15.3 mg/dL (9.0-27.0); Calcium 8.8 mg/dL (8.7-10.3); Carbon Dioxide 24.7 mmol/L (20.0-27.5); Non-African American GFR(CKD) 61.4 (60.0-200.0)
--- NOTE | 2021-10-21 11:47 | P.PN ---
Subjective Progress Note Date: 10/21/21 (ritika charting seen at 0830) Patient is a 56-year-old male for history of hypertension, dyslipidemia, and asthma who presented to the ER with complaints of abdominal pain. In the ER he underwent an extensive evaluation. On arrival his vital signs within normal limits. Laboratory analysis was remarkable for white blood cell count of 16.9, hemoglobin 18.6, sodium 136, BUN 30, creatinine 2.1, total bilirubin of 1.5. His lipase is elevated [place] 8938. CT abdomen and pelvis was positive for p ancreatitis. Gallbladder ultrasound was without gallstones or ductal dilation. Patient was admitted. He was started on IV fluids, antiemetics, pain control, and was made nothing by mouth. He continued to progress well. By the morning of 10/21 his pain was controlled and he was started on a clear liquid diet. Patient seen and examined at bedside. He denies any abdominal pain, nausea, vomiting. He denies any drinking is he has been sober for 10 years. He denies taking any new supplements. He denies starting any new high fat diets. He did not eat anything unusual. He has no history of pancreatitis in the past. General: , no distress, appears at stated age Derm: warm, dry Head: atraumatic, normocephalic, symmetric Eyes: EOMI, no lid lag, anicteric sclera Mouth: no lip lesion, mucus membranes moist Cardiovascular: S1S2 reg, no murmur, positive posterior tibial pulse bilateral, Lungs: CTA bilateral, no rhonchi, no rales , no accessory muscle use Abdominal: soft, nontender to palpation, no guarding, no appreciable organomegaly Ext: no gross muscle atrophy, no edema, no contractures Neuro: CN II-XI grossly intact, no focal neuro deficits Psych: Alert, oriented, appropriate affect Assessment/plan: Acute idiopathic pancreatitis -Continue with IV fluids, decrease the rate to 150 -Clear liquids this morning, full liquids this afternoon, and likely advanced to low fiber in a.m. -If pain remains controlled tomorrow will discharge home. Hypertension, controlled -Lisinopril -Follow blood pressures Dyslipidemia -Lipitor Obesity wtih BMI 35.6 - outpatient structured weight loss DVT prophylaxis: Heparin Discussed with: Patient, nursing Anticipated discharge: in AM Anticipated discharge place: home A total of 65 minutes was spent on the care of this complex patient more than 50% of the time was spent in counseling and care coordination. Objective - Vital Signs Vital signs: Vital Signs Temp 99.4 F 10/21/21 05:00 Pulse 62 10/21/21 05:00 Resp 18 10/21/21 05:00 BP 158/77 10/21/21 05:00 Pulse Ox 94 L 10/21/21 05:00 FiO2 Intake & Output 10/20/21 10/21/21 10/21/21 18:59 06:59 18:59 Intake Total 2400 2400 Balance 2400 2400 Intake: Intake, IV Titration 2400 2400 Amount Lactated Ringers 1,000 ml 2400 2400 @ 200 mls/hr IV .Q5H [facility] Rx#:[id number] Other: Voiding Method Toilet Toilet # Voids 4 - Labs CBC & Chem 7: 10/21/21 04:04 10/21/21 04:04 Labs: Abnormal Lab Results - Last 24 Hours (Table) 10/21/21 10/21/21 Range/Units 04:04 04:04 WBC 11.04 H (4.50-10.00) X 10*3/uL MCHC 31.8 L (32.0-37.0) g/dL RDW 14.9 H (11.5-14.5) % Immature Gran # 0.11 H (0.00-0.04) X 10*3/uL Neutrophils # 8.52 H (1.80-7.70) X 10*3/uL BUN/Creatinine Ratio 11.77 L (12.00-20.00) Ratio Lipase 117 H (14-60) U/L
[2021-10-21 20:13] VITALS: RESP 18
[2021-10-21] MEDS: DESVENLAFAXINE SUCCINATE 50 MG TAB.ER.24H PO SCH (20:13)
[2021-10-21] MEDS ORDERED: lisinopriL 10 MG TAB PO SCH (21:00)
[2021-10-21] MEDS ORDERED: ATORVASTATIN 10 MG TAB PO SCH (21:00)
[2021-10-22] MEDS: LACTATED RINGERS 1,000 ML IV SCH (04:11)
[2021-10-22 04:16] VITALS: BP 150/85; PULSE 66; TEMP 97.8
[2021-10-22] MEDS: HEPARIN SODIUM,PORCINE/PF 5,000 UNIT/0.5 ML SYRINGE SQ SCH (08:38)
[2021-10-22] MEDS: PANTOPRAZOLE 40 MG TABLET PO SCH (08:38)
--- NOTE | 2021-10-22 11:12 | P.DS ---
Providers Date of admission: 10/19/21 21:16 Expected date of discharge: 10/22/21 Attending physician: Karla Nam MD Primary care physician: Valente Taylor [facility] Course: Discharge Diagnosis: Acute Idiopathic Pancreatitis ITA HTN HLD Obesity with BMI 35.6 Hospital Course: Patient is a 56-year-old male for history of hypertension, dyslipidemia, and asthma who presented to the ER with complaints of abdominal pain. In the ER he underwent an extensive evaluation. On arrival his vital signs within normal limits. Laboratory analysis was remarkable for white blood cell count of 16.9, hemoglobin 18.6, sodium 136, BUN 30, creatinine 2.1, total bilirubin of 1.5. His lipase [place] elevated [place] 8938. CT abdomen and pelvis was positive for pancreatitis. Gallbladder ultrasound was without gallstones or ductal dilation. Patient was admitted. He was started on IV fluids, antiemetics, pain control, and was made nothing by mouth. He continued to progress well. By the morning of 10/21 his pain was controlled and he was started on a clear liquid diet. He tolerated a full liquid diet as well. He was determined stable for discharge home. Follow-up: Dr. Taylor in 3-5 days, Return to work on 10/28/21 Patient seen and examined at bedside. No abdominal pain, chest pain, SOB. Feeling well. No other complaints currently. Vital signs reviewed and stable. General: nontoxic, no distress, appears at stated age Derm: warm, dry Head: atraumatic, normocephalic, symmetric Eyes: EOMI, no lid lag, anicteric sclera Mouth: no lip lesion, mucus membranes moist Cardiovascular: S1S2 reg, no murmur, positive posterior tibial pulse bilateral, Lungs: CTA bilateral, no rhonchi, no rales , no accessory muscle use Abdominal: soft, nontender to palpation, no guarding, no appreciable organomegaly Ext: no gross muscle atrophy, no edema, no contractures Neuro: CN II-XI grossly intact, no focal neuro deficits Psych: Alert, oriented, appropriate affect A total of 32 minutes of time were spent preparing this complex discharge summary. Patient was discharged on 10/22/21. Patient Condition at Discharge: Stable Plan - Discharge Summary Discharge Rx Participant: No New Discharge Prescriptions: Continue Simvastatin [Zocor] 20 mg PO HS lisinopriL [Zestril] 10 mg PO HS Lansoprazole 30 mg PO DAILY Famotidine [Pepcid] 20 mg PO BID PRN PRN Reason: Heartburn Desvenlafaxine Succinate [Pristiq ER] 50 mg PO HS Discharge Medication List Simvastatin [Zocor] 20 mg PO HS 04/01/20 [History] lisinopriL [Zestril] 10 mg PO HS 04/01/20 [History] Lansoprazole 30 mg PO DAILY 11/13/20 [History] Desvenlafaxine Succinate [Pristiq ER] 50 mg PO HS 10/19/21 [History] Famotidine [Pepcid] 20 mg PO BID PRN 10/19/21 [History] Follow up Appointment(s)/Referral(s): Valente Taylor MD [Primary Care Provider] - 1-2 days Patient Instructions/Handouts: Pancreatitis (DC), Low Fiber Diet (DC) Activity/Diet/Wound Care/Special Instructions: Activity: As tolerated, increase fluid intake Diet: low residual for 3 days and then low fat for 7 days Discharge/Stand Alone Forms: Work/School Release / Restrict Discharge Disposition: HOME SELF-CARE
== END 2021-10-22 12:03 | disposition home or self-care (01) ==
LOC: EC 17:36 → INTOOBSV 21:16 → 5NMEDONC 21:16 → UNDODISIN 10-22 12:03
PROVIDERS: ADMIT Internal Medicine; ATTEND Internal Medicine
DX: K85.00 Idiopathic acute pancreatitis without necrosis or infection (principal); N17.9 Acute kidney failure, unspecified; I10 Essential (primary) hypertension; E78.00 Pure hypercholesterolemia, unspecified; D75.1 Secondary polycythemia; J45.909 Unspecified asthma, uncomplicated; F43.10 Post-traumatic stress disorder, unspecified; F32.A Depression, unspecified; Z68.35 Body mass index [BMI] 35.0-35.9, adult; Z79.899 Other long term (current) drug therapy; Z88.5 Allergy status to narcotic agent; Z86.16 Personal history of COVID-19; Z98.890 Other specified postprocedural states; Z80.0 Family history of malignant neoplasm of digestive organs; Z80.1 Family history of malignant neoplasm of trachea, bronchus and lung
CPT/HCPCS: 96376; 96361 ×4; 96372 ×2; 96375; 96374; 99285; 36415; 80061; 80053; 80048 ×2; 83605; 83690 ×3; 85025 ×3; 81001; 76705; 74177; G0378 ×4; J2270; C9113; Q9967; J1644 ×2

== ENCOUNTER → 2021-11-09 | Outpatient (CLI) | payer BC ==
[2021-11-09 11:39] LABS: ALT 85 U/L (10-49); AST 49 U/L (14-35); African American GFR (CKD) 59.9 (60.0-200.0); Albumin 4.4 g/dL (3.8-4.9); Alkaline Phosphatase 52 U/L (41-126); Blood Urea Nitrogen 15.9 mg/dL (9.0-27.0); Calcium 9.2 mg/dL (8.7-10.3); Carbon Dioxide 27.8 mmol/L (20.0-27.5); Chloride 103 mmol/L (96-109); Chol/HDL Ratio 6.66 Ratio; Globulin 2.1 g/dL (1.6-3.3); Glucose 94 mg/dL (70-110); LDL Cholesterol,Calculated 193.1 mg/dL (0.0-131.0); Magnesium 2.1 mg/dL (1.5-2.4); Non-African American GFR(CKD) 51.7 (60.0-200.0); Phosphorus 2.8 mg/dL (2.4-5.1); Potassium 4.6 mmol/L (3.5-5.5); Sodium 138 mmol/L (135-145); Total Protein 6.5 g/dL (6.2-8.2); Uric Acid 3.9 mg/dL (3.7-8.7)
[2021-11-09 11:45] LABS: Amylase 55 U/L (23-121)
== END | disposition home or self-care (01) ==
LOC: LABWHC1 07:58
PROVIDERS: ATTEND Nurse Practitioner Adult Health
DX: N28.9 Disorder of kidney and ureter, unspecified (principal); R89.1 Abnormal level of hormones in specimens from other organs, systems and tissues; E78.5 Hyperlipidemia, unspecified; K85.90 Acute pancreatitis without necrosis or infection, unspecified
CPT/HCPCS: 36415; 80053; 80061; 82024; 82150; 82672; 83735; 84100; 84146; 84550

== ENCOUNTER → 2021-12-09 | Outpatient (CLI) | payer BC ==
--- NOTE | 2021-12-09 16:59 | MR ---
EXAMINATION TYPE: MR pituitary wo/w con DATE OF EXAM: 12/09/2021 COMPARISON: NONE HISTORY: Hyperprolactinemia TECHNIQUE: Multiplanar, multisequence images of the brain and brainstem is performed without and with IV contras t, utilizing 11 mL intravenous Gadavist . Pituitary gland protocol. FINDINGS: Pituitary gland is normal in size with an sella turcica. Postcontrast images show normal en hancement of the pituitary stalk in the midline. There is no area of nonenhancement to suggest pituit baldomero microadenoma. Suprasellar cistern is maintained. Optic chiasm is not effaced. Craniocervical junction appears within normal limits. No gross hydrocephalus is seen. IMPRESSION: No MRI evidence for pituitary micro or macroadenoma
== END | disposition home or self-care (01) ==
LOC: RADMRIMAIN 15:08
PROVIDERS: ATTEND Family Medicine
DX: E22.1 Hyperprolactinemia (principal)
CPT/HCPCS: 70553; A9585

== ENCOUNTER → 2022-09-03 | Outpatient (CLI) | payer BC ==
[2022-09-03 11:24] LABS: ALT 82 U/L (4-49); AST 80 U/L (17-59); African American GFR (CKD) 51 (>60 ml/min/1.73 sqM); Albumin 4.2 g/dL (3.5-5.0); Albumin/Globulin Ratio 1.4; Alkaline Phosphatase 55 U/L (38-126); Anion Gap 8 mmol/L; Blood Urea Nitrogen 16 mg/dL (9-20); C Reactive Protein <0.5 mg/dL (<1.0); Calcium 9.2 mg/dL (8.4-10.2); Carbon Dioxide 28 mmol/L (22-30); Chloride 99 mmol/L (98-107); Glucose 91 mg/dL (74-99); Non-African American GFR(CKD) 44 (>60 ml/min/1.73 sqM); Potassium 4.7 mmol/L (3.5-5.1); Sodium 135 mmol/L (137-145); Total Protein 7.2 g/dL (6.3-8.2)
--- NOTE | 2022-09-03 12:18 | CT ---
EXAMINATION TYPE: CT abdomen pelvis wo con CT DLP: 972.30 mGycm, Automated exposure control for dose reduction was used. DATE OF EXAM: 09/03/2022 12:08 PM COMPARISON: CT abdomen pelvis most recent from 10/19/2021 . CLINICAL INDICATION:Male, 57 years old with history of R1312; LLQ pain, rule out pancreatitis, divert iculitis or renal stone. TECHNIQUE: Standard CT of the abdomen and pelvis following the administration of oral contrast. Cor onal and sagittal reformats were performed. Patient has poor renal function. FINDINGS: LOWER CHEST: Unremarkable ABDOMEN LIVER: Subcentimeter hypodense focus within the left hepatic lobe which is too small to characterize but likely represents a cyst. GALLBLADDER AND BILE DUCTS: Unremarkable. PANCREAS: Unremarkable noncontrast appearance. No parenchymal calcifications or surrounding inflammat ory changes. SPLEEN: Unremarkable noncontrast appearance. ADRENAL GLANDS: Unremarkable noncontrast appearance. KIDNEYS AND URETERS: No evidence of hydronephrosis or renal calculus. PELVIS BLADDER: Unremarkable REPRODUCTIVE: Coarse calcifications of the prostate gland are identified. ABDOMEN & PELVIS STOMACH AND BOWEL: Stomach and duodenum are unremarkable. Distal colonic diverticulosis without evide nce for acute diverticulitis. Enteric contrast reaches the mid small bowel. No evidence of bowel obst ruction. The appendix is within normal limits. PERITONEUM: No evidence of pneumoperitoneum or free fluid. VASCULATURE: Mild atherosclerotic calcifications are present throughout the abdominal aorta and its b ranches. No evidence of aortic aneurysm. MUSCULOSKELETAL: No acute osseous abnormalities. Incidental vertebral body hemangioma involving L4. M ild degenerative disc disease at L5-S1 with disc space narrowing, endplate sclerosis, vacuum disc dis ease, and anterior osteophytosis. LYMPH NODES: No gross evidence for lymphadenopathy. SOFT TISSUE/ABDOMINAL WALL: Unremarkable IMPRESSION: 1. No acute abdominal/pelvic process. 2. Colonic diverticulosis without evidence for acute diverticulitis.
== END | disposition home or self-care (01) ==
LOC: RADCTMAIN 10:00
PROVIDERS: ATTEND Family Medicine
DX: K57.30 Diverticulosis of large intestine without perforation or abscess without bleeding (principal); R10.12 Left upper quadrant pain
CPT/HCPCS: 36415; 74176; 80053; 82378; 85652; 86140

== ENCOUNTER → 2022-11-21 | Outpatient (CLI) | payer BC ==
--- NOTE | 2022-11-21 12:40 | US ---
EXAMINATION TYPE: US venous doppler duplex LE RT DATE OF EXAM: 11/21/2022 12:28 PM COMPARISON: NONE CLINICAL INDICATION: Male, 57 years old with history of M79.651 PAIN IN RIGHT THIGH; H/O ear infectio n, now has red, warm right thigh SIDE PERFORMED: Right TECHNIQUE: The lower extremity deep venous system is examined utilizing real time linear array sonog dejah with graded compression, doppler sonography and color-flow sonography. VESSELS IMAGED: Common Femoral Vein Deep Femoral Vein Greater Saphenous Vein * Femoral Vein Popliteal Vein Small Saphenous Vein * Proximal Calf Veins (* superficial vessels) Right Leg: Negative for DVT lymph node seen within groin adjacent to CFV, warm, red thigh IMPRESSION: Grayscale, color doppler, spectral doppler imaging performed of the deep veins of the lo wer extremities. There is normal flow, compressibility, vascular waveforms.
[2022-11-21 15:31] LABS: HCT 44.3 % (39.6-50.0); HGB 14.6 d/dL (13.0-17.0); MCH 29.7 pg (27.0-32.0); MCV 90.2 FL (80.0-97.0); Mean Platelet Volume 9.6 FL (9.5-12.2); NRBC Per 100 WBC 0 X 10*3/uL (0.00-0.01); Platelet Count 231 X 10*3/uL (140-440); RBC 4.91 X 10*6/uL (4.40-5.60)
[2022-11-21 17:34] LABS: Erythrocyte Sedimentation Rate 45 mm/Hr (0-20)
[2022-11-21 22:05] LABS: Albumin/Globulin Ratio 1.82 Ratio (1.60-3.17); BUN/Creat Ratio 12.81 Ratio (12.00-20.00); Blood Urea Nitrogen 20.5 mg/dL (9.0-27.0); Calcium 9.2 mg/dL (8.7-10.3); Chloride 107 mmol/L (96-109); Globulin 2.2 d/dL (1.6-3.3); Glucose 133 mg/dL (70-110); Potassium 4.5 mmol/L (3.5-5.5); Sodium 141 mmol/L (135-145); Total Bilirubin 0.3 mg/dL (0.3-1.2); Total Protein 6.2 d/dL (6.2-8.2)
[2022-11-21 22:06] LABS: ALT 37 U/L (10-49); AST 41 U/L (14-35); Alkaline Phosphatase 45 U/L (41-126)
== END | disposition home or self-care (01) ==
LOC: RADUSWWP 12:11
PROVIDERS: ATTEND Family Medicine
DX: M79.651 Pain in right thigh (principal)
CPT/HCPCS: 80053; 85027; 85379; 85652; 86140

== ENCOUNTER 2023-04-29 09:48 | Observation (INO) | payer BC ==
--- NOTE | 2023-04-29 10:22 | ED ---
Chest Pain HPI - General Chief Complaint: Chest Pain Stated Complaint: ABN EKG-CHEST PAIN Time Seen by Provider: 04/29/23 10:19 Source: patient, RN notes reviewed Mode of arrival: ambulatory Limitations: no limitations - History of Present Illness Initial Comments: This is a 57-year-old male who presents to the emergency department for chest pain. States that it started about 3 days ago and he reports being under a lot of stress at work. Pain is primarily left-sided and described as a heaviness sensation. Reports moderate shortness of breath as well as 2 days of coughing and congestion. He was told that he had an abnormal stress test a couple of years ago but has not required any stents. He saw his PCP today and had an EKG done. He was advised that his EKG was abnormal, and he needed to come to the emergency department. MD Complaint: chest pain - Related Data Home Medications Medication Instructions Recorded Confirmed Simvastatin [Zocor] 20 mg PO W/SUPPER 04/01/20 04/29/23 Acetaminophen Tab [Tylenol Tab] 1,000 mg PO Q6HR PRN 04/29/23 04/29/23 Sertraline [Zoloft] 100 mg PO W/SUPPER 04/29/23 04/29/23 Sildenafil [Revatio] 20 mg PO DIRECTED PRN 04/29/23 04/29/23 Tirzepatide [Zepbound] 5 mg SQ TH 04/29/23 04/29/23 lisinopriL [Zestril] 20 mg PO BID 04/29/23 04/29/23 Previous Rx's Medication Instructions Recorded Nirmatrelvir/Ritonavir [Paxlovid 1 each PO DIRECTED #1 each 04/29/23 300-100 mg Dose Pack] Allergies Allergy/AdvReac Type Severity Reaction Status Date / Time Opioids - Morphine Analogues AdvReac Nausea & Verified 04/29/23 12:33 Vomiting Opioids-Meperidine and AdvReac Nausea & Verified 04/29/23 12:33 Related Vomiting Opioids-Methadone and Related AdvReac Nausea & Verified 04/29/23 12:33 Vomiting Review of Systems ROS Statement: Those systems with pertinent positive or pertinent negative responses have been documented in the HPI. ROS Other: All systems not noted in ROS Statement are negative. Past Medical History Past Medical History: Asthma, Hypertension Additional Past Medical History / Comment(s): covid pneumonia in . 2020, abd. pain & burning for 5-6 months History of Any Multi-Drug Resistant Organisms: None Reported Past Surgical History: Orthopedic Surgery Additional Past Surgical History / Comment(s): rt shoulder arthroscopy, lt knee arthroscopy x2, rt knee arthroscopy, lt foot surgery x2 Past Anesthesia/Blood Transfusion Reactions: No Reported Reaction Past Psychological History: PTSD Smoking Status: Never smoker Past Alcohol Use History: None Reported Past Drug Use History: None Reported - Past Family History Mother Family Medical History: Cancer Additional Family Medical History / Comment(s): colon cancer with metastasis to liver and brain Father Family Medical History: Cancer Additional Family Medical History / Comment(s): oat cell cancer lung General Exam Limitations: no limitations General appearance: alert, in no apparent distress Head exam: Present: atraumatic, normocephalic, normal inspection Respiratory exam: Present: normal lung sounds bilaterally. Absent: respiratory distress, wheezes, rales, rhonchi, stridor Cardiovascular Exam: Present: regular rate, normal rhythm, normal heart sounds. Absent: systolic murmur, diastolic murmur, rubs, gallop, clicks Neurological exam: Present: alert, oriented X3, CN II-XII intact Psychiatric exam: Present: normal affect, normal mood Skin exam: Present: warm, dry, intact, normal color. Absent: rash Course Vital Signs 04/29/23 04/29/23 04/29/23 09:54 14:00 16:00 Temperature 98.7 F Pulse Rate 74 66 62 Pulse Rate [ Right] Respiratory 18 Rate Blood Pressure 146/68 136/80 138/74 Blood Pressure [Right Arm] O2 Sat by Pulse 97 96 96 Oximetry 04/29/23 04/29/23 16:30 16:44 Temperature 98.2 F Pulse Rate 61 Pulse Rate [ 76 Right] Respiratory 16 Rate Blood Pressure 145/80 Blood Pressure 154/78 [Right Arm] O2 Sat by Pulse 96 98 Oximetry Chest Pain MDM - MDM This is a 57 year old male who presents to the emergency department for chest pain. Was pt. sent in by a medical professional or institution? @ -No Did you speak to anyone other than the patient for history? @ -No Did you review nursing and triage notes? @ -Yes, and I agree, it is accurate with regards to the patient's symptoms. Were old charts reviewed? @ -No Differential Diagnosis? @ -Differential Chest Pain: Stable Angina, Unstable Angina, STEMI, NSTEMI Aortic Dissection, Pneumothorax, Musculoskeletal, Esophageal Spasm GERD, Cholecystitis, Pancreatitis, Zoster, this is not meant to be an all-inclusive list. EKG interpreted by me (3pts min.)? @ -EKG interpreted by me demonstrating the following: Ectopic atrial rhythm. Ventricular rate 73 BPM, IL interval 142 ms, QRS duration 118 ms, QTc 394 ms. X-rays interpreted by me (1pt min.)? @ -Chest x-ray obtained, my interpretation identifies no localized consolidations or infiltrates. CT interpreted by me (1pt min.)? @ -Not obtained U/S interpreted by me (1pt. min.)? @ -Not obtained What testing was considered but not performed? (CT, X-rays, U/S, labs)? Why? @ -None What meds were considered but not given? Why? @ -I recommended we try nitroglycerin, however the patient refused, saying that it gives him too much of a headache. Did you discuss the management of the patient with other professionals? @ -Yes, Dr. Salvador, who accepts the patient for admission. Did you reconcile home meds? @ -Yes Was smoking cessation discussed for >3mins.? @ -No Was critical care preformed (if so, how long)? @ -No Were there social determinants of health that impacted care today? How? (Homelessness, low income, unemployed, alcoholism, drug addiction, transportation, low edu. Level, literacy, decrease access to med. care, assisted, rehab)? @ -No Was there de-escalation of care discussed even if they declined? (Discuss DNR or withdrawal of care, Hospice)? @ -No What co-morbidities impacted this encounter? (DM, HTN, Smoking, COPD, CAD, Cancer, CVA, Hep., AIDS, mental health diagnosis, sleep apnea, morbid obesity)? @ -HTN, HLD, asthma Was patient admitted / discharged? @ -Admitted. Lab work obtained revealing a mild elevation in lipase of 659. Renal function is decreased but improved when compared with prior. Troponin negative. COVID-19 test is positive. Chest x-ray reveals no acute process. Given the description of the patient's chest pain, I recommended a dose of nitroglycerin. However, states that this gives him a horrible headache and he declined. He was given a dose of aspirin. EKG reviewed with ED attending, Dr. Martino. She was concerned about potential biphasic T waves in V5 and V6. Given the patient's symptoms with EKG changes, he will be admitted to medicine for cardiac observation. Serial troponins ordered and consult placed for cardiology. Undiagnosed new problem with uncertain prognosis? @ -None Drug Therapy requiring intensive monitoring for toxicity (Heparin, Nitro, Insulin, Cardizem)? @ -None Were any procedures done? @ -None Diagnosis/symptom? @ -Chest pain, EKG changes Acute, or Chronic, or Acute on Chronic? @ -Acute Uncomplicated (without systemic symptoms) or Complicated (systemic symptoms)? @ -Uncomplicated Side effects of treatment? @ -None Exacerbation, Progression, or Severe Exacerbation] @ -Not applicable Poses a threat to life or bodily function? @ -Yes This case was discussed in detail with the attending ED physician, Dr. Martino. Presentation, findings, and treatment plan discussed in detail as well. Disposition Clinical Impression: Chest pain, Acute electrocardiogram changes Disposition: ADMITTED IP TO THIS [facility] Time of Disposition: 13:36
[2023-04-29 10:51] LABS: Basophils % (A) 1 %; Eosinophils # (A) 0.2 k/uL (0-0.7); Eosinophils % (A) 2 %; HCT 50.7 % (39.0-53.0); HGB 16.3 gm/dL (13.0-17.5); Lymphocytes # (A) 0.6 k/uL (1.0-4.8); Lymphocytes % (A) 7 %; MCH 31.1 pg (25.0-35.0); MCHC 32.2 g/dL (31.0-37.0); MCV 96.8 fL (80.0-100.0); Mean Platelet Volume 7.2; Monocytes # (A) 0.4 k/uL (0-1.0); Monocytes % (A) 5 %; Neutrophils # (A) 6.9 k/uL (1.3-7.7); Neutrophils % (A) 83 %; Platelet Count 237 k/uL (150-450); RBC 5.24 m/uL (4.30-5.90); WBC 8.3 k/uL (3.8-10.6)
[2023-04-29 11:09] LABS: ALT 58 U/L (4-49); AST 53 U/L (17-59); African American GFR (CKD) 59 (>60 ml/min/1.73 sqM); Albumin 3.6 g/dL (3.5-5.0); Alkaline Phosphatase 66 U/L (38-126); Anion Gap 8 mmol/L; Blood Urea Nitrogen 15 mg/dL (9-20); Carbon Dioxide 23 mmol/L (22-30); Chloride 107 mmol/L (98-107); Glucose 128 mg/dL (74-99); Non-African American GFR(CKD) 51 (>60 ml/min/1.73 sqM); Sodium 138 mmol/L (137-145); Total Bilirubin 1.1 mg/dL (0.2-1.3); Total Protein 6.2 g/dL (6.3-8.2)
--- NOTE | 2023-04-29 11:27 | XR ---
EXAMINATION TYPE: XR chest 2V DATE OF EXAM: 04/29/2023 11:24 AM CLINICAL INDICATION:Male, 57 years old with history of Chest Pain; COMPARISON: Chest radiographs from 11/13/2020. TECHNIQUE: XR chest 2V Frontal and lateral views of the chest. FINDINGS: Lungs/Pleura: There is no evidence of pleural effusion, focal consolidation, or pneumothorax. Pulmonary vascularity: Unremarkable. Heart/mediastinum: Cardiomediastinal silhouette is unremarkable. Musculoskeletal: No acute osseous pathology. IMPRESSION: No acute cardiopulmonary disease/process.
[2023-04-29 11:36] LABS: Partial Thromboplastin Time 23.1 sec (22.0-30.0); Prothrombin Time 11.2 sec (10.0-12.5)
[2023-04-29] MEDS: SODIUM CHLORIDE 0.9% 1,000 ML IV STA (11:48)
[2023-04-29] MEDS: ASPIRIN 81 MG PO STA (11:49)
[2023-04-29 12:22] LABS: Amylase 97 U/L (30-110); Lipase 659 U/L (23-300)
[2023-04-29] MEDS ORDERED: ONDANSETRON 4 MG/2 ML VIAL IVP PRN (13:34)
[2023-04-29] MEDS ORDERED: MORPHINE SULFATE 4 MG/ML SYRINGE IV PRN (13:34)
[2023-04-29] MEDS ORDERED: NALOXONE 0.4 MG/ML 1 ML VIAL IV PRN (13:34)
[2023-04-29] MEDS ORDERED: ACETAMINOPHEN TAB 325 MG TAB PO PRN (13:34)
--- NOTE | 2023-04-29 15:58 | P.HPIM ---
History of Present Illness H&P Date: 04/29/23 57 year old M with PMH of COVID PNA, history of NC, HTN, Pulmonary HTN, Depression and Obesity presents to the ED. He reports chest pain, left sided, constant, described as heaviness and tight, non radiating over the past 2-3 days. Chest pain is not related to exertion, position or deep inspiration. He reports SOB that has been ongoing since his previous hospitalization for COVID PNA in 2019. Today, he reported a frontal headache and sore throat. He went to his PCP who did an EKG which was abnormal, thus told to come to the ED. In the ED he underwent extensive evaluation. Vital signs stable. CBC lymphocyte count 0.6. Coag panel within normal limits. CMP Cr 1.51, glu 128, ALT 58, T. protein 6.2. Amylase 97. Lipase 659. COVID 19 +. CXR no acute process. EKG with sinus rhythm, incomplete RBBB with concerns for biphasic T waves in V5 and V6.. Patient is admitted for chest pain, rule out ACS, Cardiology evaluation. General: non toxic, no distress, appears at stated age Derm: warm, dry Head: atraumatic, normocephalic, symmetric Eyes: EOMI, no lid lag, anicteric sclera Mouth: no lip lesion, mucus membranes moist Cardiovascular: S1S2 reg, no murmur Lungs: CTA bilateral, no rhonchi, no rales , no accessory muscle use Ext: no gross muscle atrophy, no edema, no contractures Neuro: no focal neuro deficits Psych: Alert, oriented, appropriate affect Based on my assessment of this patient, this patient meets a high complexity level of care. Patient has an acute diagnosis of chest pain with EKG changes concerning for ACS that poses a threat to life or bodily function. Chest pain: Trend Trop/EKG to rule out ACS. Obtain D-Dimer. s/p ASA 325 mg PO x 1. Start ASA 81 mg PO QD. Lipitor 10 mg PO QHS. Telemetry monitoring. Obtain Echo. Cardiology consultation. COVID 19: Prescribe Paxlovid to pharmacy not available on out formulary. Elevated lipase: No signs of pancreatitis. CKD: Appears at baseline. Chronic conditions: HTN, Pulmonary HTN, Depression and Obesity CODE STATUS: FULL CODE DVT Prophylaxis: Lovenox. GI Prophylaxis: Designated medical POA if patient is not able to make medical decisions for themselves: Son Antwan. I have reviewed the following decorating consultant notes: ED note. I have reviewed the results of the following tests: As above. I have ordered the following tests: As above. I have discussed the care of this patient with the following independent historian: I have independently interpreted the following test below: CXR as above. I have discussed the management of this patient with the following physician: Past Medical History Past Medical History: Asthma, Hypertension Additional Past Medical History / Comment(s): covid pneumonia in 2020, abd. pain & burning for 5-6 months History of Any Multi-Drug Resistant Organisms: None Reported Past Surgical History: Orthopedic Surgery Additional Past Surgical History / Comment(s): rt shoulder arthroscopy, lt knee arthroscopy x2, rt knee arthroscopy, lt foot surgery x2 Past Anesthesia/Blood Transfusion Reactions: No Reported Reaction Past Psychological History: PTSD Smoking Status: Never smoker Past Alcohol Use History: None Reported Past Drug Use History: None Reported - Past Family History Mother Family Medical History: Cancer Additional Family Medical History / Comment(s): colon cancer with metastasis to liver and brain Father Family Medical History: Cancer Additional Family Medical History / Comment(s): oat cell cancer lung Medications and Allergies Home Medications Medication Instructions Recorded Confirmed Type Simvastatin [Zocor] 20 mg PO W/SUPPER 04/01/20 04/29/23 History Acetaminophen Tab [Tylenol Tab] 1,000 mg PO Q6HR PRN 04/29/23 04/29/23 History Nirmatrelvir/Ritonavir [Paxlovid 1 each PO DIRECTED #1 each 04/29/23 Rx 300-100 mg Dose Pack] Sertraline [Zoloft] 100 mg PO W/SUPPER 04/29/23 04/29/23 History Sildenafil [Revatio] 20 mg PO DIRECTED PRN 04/29/23 04/29/23 History Tirzepatide [Zepbound] 5 mg SQ TH 04/29/23 04/29/23 History lisinopriL [Zestril] 20 mg PO BID 04/29/23 04/29/23 History Allergies Allergy/AdvReac Type Severity Reaction Status Date / Time Opioids - Morphine Analogues AdvReac Nausea & Verified 04/29/23 12:33 Vomiting Opioids-Meperidine and AdvReac Nausea & Verified 04/29/23 12:33 Related Vomiting Opioids-Methadone and Related AdvReac Nausea & Verified 04/29/23 12:33 Vomiting Physical Exam Vitals: Vital Signs Temp Pulse Resp BP Pulse Ox 04/29/23 09:54 98.7 F 74 18 146/68 97 Intake and Output 04/29/23 04/29/23 04/29/23 06:59 14:59 22:59 Other: Weight 106.141 kg Results CBC & Chem 7: 04/29/23 10:14 04/29/23 10:14 Labs: Abnormal Lab Results - Last 24 Hours (Table) 04/29/23 04/29/23 04/29/23 Range/Units 10:14 10:14 10:14 Lymphocytes # 0.6 L (1.0-4.8) k/uL Creatinine 1.51 H (0.66-1.25) mg/dL Glucose 128 H (74-99) mg/dL ALT 58 H (4-49) U/L Total Protein 6.2 L (6.3-8.2) g/dL Lipase (23-300) U/L SARS-CoV-2 (PCR) Detected A (Not Detectd) 04/29/23 Range/Units 10:14 Lymphocytes # (1.0-4.8) k/uL Creatinine (0.66-1.25) mg/dL Glucose (74-99) mg/dL ALT (4-49) U/L Total Protein (6.3-8.2) g/dL Lipase 659 H (23-300) U/L SARS-CoV-2 (PCR) (Not Detectd)
--- NOTE | 2023-04-29 17:01 | CA ---
Transthoracic Echo Report Name: Jag Davis Age: 57 Gender: M : 1965 Exam Date: 04/29/2023 16:34 Exam Location: [place] [facility] Ht (in): 71 Wt (lb): 234 Ordering Physician: Cristela Radford MD Attending/Referring Phys: In Classroom Tutor Jessie Sevilla RDCS Procedure CPT: Indications: CP Cardiac Hx: Technical Quality: Good Contrast 1: Total Dose (mL): Contrast 2: Total Dose (mL): MEASUREMENTS (Male / Female) Normal Values 2D ECHO LV Diastolic Diameter PLAX 5.7 cm 4.2 - 5.9 / 3.9 - 5.3 cm LV Systolic Diameter PLAX 4.0 cm IVS Diastolic Thickness 0.8 cm 0.6 - 1.0 / 0.6 - 0.9 cm LVPW Diastolic Thickness 1.0 cm 0.6 - 1.0 / 0.6 - 0.9 cm LV Relative Wall Thickness 0.3 RV Internal Dim ED PLAX 3.5 cm LA Systolic Diameter LX 4.2 cm 3.0 - 4.0 / 2.7 - 3.8 cm LV Diastolic Volume MOD 4C 196.6 cm??? LV Systolic Volume MOD 4C 90.9 cm??? LV Ejection Fraction MOD 4C 53.8 % LV Cardiac Index MOD 4C 2803.8 cm???/min???m??? LV Diastolic Length 4C 8.5 cm LV Systolic Length 4C 7.1 cm LV Diastolic Volume MOD 2C 221.2 cm??? LV Systolic Volume MOD 2C 102.7 cm??? LV Ejection Fraction MOD 2C 53.6 % LV Cardiac Index MOD 2C 3142.6 cm???/min???m??? LV Diastolic Length 2C 10.6 cm LV Systolic Length 2C 8.4 cm LA Volume 87.8 cm??? 18 - 58 / 22 - 52 cm??? LA Volume Index 37.5 cm???/m??? 16 - 28 cm???/m??? M-MODE Aortic Root Diameter MM 3.3 cm MV E Point Septal Separation 0.6 cm AV Cusp Separation MM 2.5 cm DOPPLER AV Peak Velocity 188.1 cm/s AV Peak Gradient 14.2 mmHg MV Area PHT 4.1 cm??? Mitral E Point Velocity 67.4 cm/s Mitral A Point Velocity 98.6 cm/s Mitral E to A Ratio 0.7 MV Deceleration Time 183.1 ms TR Peak Velocity 243.8 cm/s TR Peak Gradient 23.8 mmHg Right Ventricular Systolic Press 28.8 mmHg FINDINGS Left Ventricle Left ventricular ejection fraction is estimated at 55-60 %. Left ventricular cavity size normal. Left ventricular wall thickness normal. Right Ventricle Mild right ventricular dilatation. Right ventricular systolic pressure within normal limits. Right Atrium Normal right atrial size. Left Atrium Mildly increased left atrial diameter. Moderately increased left atrial volume. Mildly increased left atrial area. Mitral Valve Structurally normal mitral valve. No mitral stenosis, regurgitation or prolapse. Aortic Valve Trileaflet aortic valve. No aortic valve stenosis or regurgitation. Tricuspid Valve Structurally normal tricuspid valve. Mild tricuspid regurgitation. Pulmonic Valve Structurally normal pulmonic valve. No pulmonic regurgitation. Pericardium No pericardial effusion. Aorta Normal size aortic root and proximal ascending aorta. CONCLUSIONS Normal LV systolic function Dilated left atrium Mild right ventricular dilation dictation Previewed by: Dr. Lloyd Glass MD (Electronically Signed) Final Date: 29 April 2023 17:00
[2023-04-29] MEDS: ATORVASTATIN 10 MG TAB PO SCH (17:39)
[2023-04-29] MEDS: SILDENAFIL 20 MG TAB PO SCH (17:40)
[2023-04-29] MEDS: SERTRALINE 100 MG TAB PO SCH (18:41)
[2023-04-29] MEDS ORDERED: RITONAVIR 100 MG TAB PO SCH (21:00)
[2023-04-29] MEDS: lisinopriL 20 MG TAB PO SCH (21:50)
[2023-04-29] MEDS: PAXLOVID PO SCH (21:50)
[2023-04-29] MEDS: ACETAMINOPHEN TAB 500 MG TAB PO PRN (21:54)
[2023-04-29] MEDS ORDERED: CALCIUM CARBONATE 500 MG CHEWABLE PO PRN (23:57)
[2023-04-30 06:55] LABS: African American GFR (CKD) 56 (>60 ml/min/1.73 sqM); Anion Gap 3 mmol/L; Blood Urea Nitrogen 14 mg/dL (9-20); Calcium 8.5 mg/dL (8.4-10.2); Carbon Dioxide 28 mmol/L (22-30); Chloride 108 mmol/L (98-107); Glucose 82 mg/dL (74-99); Non-African American GFR(CKD) 48 (>60 ml/min/1.73 sqM); Potassium 4.7 mmol/L (3.5-5.1); Sodium 139 mmol/L (137-145)
[2023-04-30 08:54] VITALS: BP 147/73; RESP 16; TEMP 98.5
--- NOTE | 2023-04-30 08:58 | NM ---
EXAMINATION TYPE: NM pul perfusion DATE OF EXAM: 04/30/2023 COMPARISON: Chest x-ray 04/29/2023 CLINICAL INDICATION: Male, 57 years old with history of r/o PE; Following administration of 5.4 mCi Tc 99m MAA. Images obtained post injection. FINDINGS: No mismatched ventilation/perfusion defects are evident. IMPRESSION: Very low probability for pulmonary embolism based on PIOPED 2 criteria.
[2023-04-30] MEDS: dexAMETHasone 2 MG TAB PO SCH (09:06)
[2023-04-30] MEDS: ZINC SULFATE 220 MG CAP PO SCH (09:06)
[2023-04-30] MEDS: ENOXAPARIN 40 MG/0.4 ML SYRINGE SQ SCH (09:07)
[2023-04-30] MEDS: ASPIRIN 81 MG PO SCH (09:07)
[2023-04-30] MEDS: TIRZEPATIDE 5 MG/0.5 ML SQ SCH (09:09)
--- NOTE | 2023-04-30 09:31 | P.CRDCN ---
History of Present Illness History of present illness: HISTORY OF PRESENT ILLNESS: This is a 57-year-old male with a past medical history significant for asthma, hypertension, hyperlipidemia, PTSD, and depression. 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 We have been asked to see the patient in consultation for chest pain. Patient examined at the bedside. Patient presented to the hospital with a chief complaint of chest pain. Patient also reports having respiratory congestion and a cough for the past 2 days. Patient went to see his PCP who did an EKG and advised him to come to the emergency room. The patient was found to be positive for COVID-19. At the time of examination, the patient denies chest pain or pressure. He reports shortness of breath. He is a non-smoker. He denies any previous history of CAD. The patient reports his dad from a heart attack when he was in his 50s. DIAGNOSTICS: - EKG reveals sinus mechanism with incomplete right bundle branch block. Diffuse T wave inversions. Repeat EKG this morning reveals sinus mechanism with resolution of T wave inversions - Chest xray negative for acute cardiopulmonary process. - Laboratory data: WBC 8.3. Hemoglobin 16.3. Platelet count 237. Sodium 138. Potassium 4.0. BUN 15. Creatinine 1.51. Magnesium 2.0 lipase 659. COVID 19 detected. Troponin negative x 3 - Current home cardiac medications include simvastatin 20 mg daily and lisinop ril 20 mg twice a day. - Echocardiogram obtained this admission revealed ejection fraction 55 to 60%, dilated left atrium, and mild right ventricular dilation. - Patient underwent dobutamine stress test in 2017 which was negative for ischemia REVIEW OF SYSTEMS: At the time of my exam: CONSTITUTIONAL: Denies fever or chills. HEENT: Denies blurred vision, vision changes, or eye pain. Denies hemoptysis CARDIOVASCULAR: Denies chest pain. Denies orthopnea. Denies PND. Denies palpitations RESPIRATORY: Denies shortness of breath. GASTROINTESTINAL: Denies abdominal pain. Denies nausea or vomiting. HEMATOLOGIC: Denies bleeding disorders. GENITOURINARY: Denies any blood in urine. SKIN: Denies pruitis. Denies rash. PHYSICAL EXAM: VITAL SIGNS: Reviewed. GENERAL: Well-developed in no acute distress. HEENT: Head is normocephalic. Pupils are equal, round. Sclerae anicteric. Mucous membranes of the mouth are moist. Neck supple. No JVD or thyromegaly LUNGS: Respirations even and unlabored. Lungs essentially clear to auscultation bilaterally. HEART: Regular rate and rhythm. S1 and S2 heard. ABDOMEN: Soft. Nondistended. Nontender. EXTREMITIES: Normal range of motion. No clubbing or cyanosis. Peripheral pulses intact. No lower extremity edema NEUROLOGIC: Awake and alert. Oriented x 3. ASSESSMENT: Acute COVID-19 Chest pain, suspect secondary to above Elevated lipase Acute kidney injury Hypertension Hyperlipidemia Family history of premature coronary artery disease Elevated D-dimer PLAN: An acute coronary event has been ruled out Resume home cardiac medications Further evaluation of elevated D-dimer per internal medicine Recommend outpatient stress testing once patient has recovered from COVID-19 Patient to follow-up postdischarge with Dr. Glass Nurse practitioner note has been reviewed by physician. Signing provider agrees with the documented findings, assessment, and plan of care documented by SURGICAL SERVICES TECH as a scribe. Past Medical History Past Medical History: Asthma, Hypertension Additional Past Medical History / Comment(s): covid pneumonia in . 2020, abd. pain & burning for 5-6 months History of Any Multi-Drug Resistant Organisms: None Reported Past Surgical History: Orthopedic Surgery Additional Past Surgical History / Comment(s): rt shoulder arthroscopy, lt knee arthroscopy x2, rt knee arthroscopy, lt foot surgery x2 Past Anesthesia/Blood Transfusion Reactions: No Reported Reaction Past Psychological History: PTSD Smoking Status: Never smoker Past Alcohol Use History: None Reported Past Drug Use History: None Reported - Past Family History Mother Family Medical History: Cancer Additional Family Medical History / Comment(s): colon cancer with metastasis to liver and brain Father Family Medical History: Cancer Additional Family Medical History / Comment(s): oat cell cancer lung Medications and Allergies Home Medications Medication Instructions Recorded Confirmed Type Simvastatin [Zocor] 20 mg PO W/SUPPER 04/01/20 04/29/23 History Acetaminophen Tab [Tylenol Tab] 1,000 mg PO Q6HR PRN 04/29/23 04/29/23 History Nirmatrelvir/Ritonavir [Paxlovid 1 each PO DIRECTED #1 each 04/29/23 Rx 300-100 mg Dose Pack] Sertraline [Zoloft] 100 mg PO W/SUPPER 04/29/23 04/29/23 History Sildenafil [Revatio] 20 mg PO DIRECTED PRN 04/29/23 04/29/23 History Tirzepatide [Zepbound] 5 mg SQ TH 04/29/23 04/29/23 History lisinopriL [Zestril] 20 mg PO BID 04/29/23 04/29/23 History Allergies Allergy/AdvReac Type Severity Reaction Status Date / Time Opioids - Morphine Analogues AdvReac Nausea & Verified 04/29/23 12:33 Vomiting Opioids-Meperidine and AdvReac Nausea & Verified 04/29/23 12:33 Related Vomiting Opioids-Methadone and Related AdvReac Nausea & Verified 04/29/23 12:33 Vomiting Physical Exam Vitals: Vital Signs Temp Pulse Resp BP Pulse Ox 04/29/23 09:54 98.7 F 74 18 146/68 97 Intake and Output 04/28/23 04/29/23 04/29/23 22:59 06:59 14:59 Other: Weight 106.141 kg Results 04/29/23 10:14 04/30/23 05:42 Cardiac Enzymes 04/29/23 04/29/23 Range/Units 10:14 10:14 AST 53 (17-59) U/L Troponin I <0.012 (0.000-0.034) ng/mL Coagulation 04/29/23 Range/Units 10:14 PT 11.2 (10.0-12.5) sec APTT 23.1 (22.0-30.0) sec CBC 04/29/23 Range/Units 10:14 WBC 8.3 (3.8-10.6) k/uL RBC 5.24 (4.30-5.90) m/uL Hgb 16.3 (13.0-17.5) gm/dL Hct 50.7 (39.0-53.0) % Plt Count 237 (150-450) k/uL Comprehensive Metabolic Panel 04/29/23 Range/Units 10:14 Sodium 138 (137-145) mmol/L Potassium 4.0 (3.5-5.1) mmol/L Chloride 107 (98-107) mmol/L Carbon Dioxide 23 (22-30) mmol/L BUN 15 (9-20) mg/dL Creatinine 1.51 H (0.66-1.25) mg/dL Glucose 128 H (74-99) mg/dL Calcium 9.0 (8.4-10.2) mg/dL AST 53 (17-59) U/L ALT 58 H (4-49) U/L Alkaline Phosphatase 66 (38-126) U/L Total Protein 6.2 L (6.3-8.2) g/dL Albumin 3.6 (3.5-5.0) g/dL Current Medications Generic Name Dose Route Start Last Admin Trade Name Freq PRN Reason Stop Dose Admin Acetaminophen 1,000 mg 04/29/23 13:36 Acetaminophen Tab 500 Mg Tab PO Q6HR PRN Fever and/ or Pain Atorvastatin Calcium 10 mg 04/29/23 17:30 Atorvastatin 10 Mg Tab PO W/SUPPER [facility] Lisinopril 20 mg 04/29/23 21:00 Lisinopril 20 Mg Tab PO BID MAMTA Morphine Sulfate 4 mg 04/29/23 13:34 Morphine Sulfate 4 Mg/Ml Syringe IV Q4HR PRN Severe Pain (Scale 7 to 10) Naloxone HCl 0.2 mg 04/29/23 13:34 Naloxone 0.4 Mg/Ml 1 Ml Vial IV Q2M PRN Opioid Reversal Patient's Own ( 5 mg 04/30/23 09:00 Tirzepatide [ SQ Zepbound] 5 Mg/0.5 TH MAMTA Ml Pen.Injctr) Ondansetron HCl 4 mg 04/29/23 13:34 Ondansetron 4 Mg/2 Ml Vial IVP Q8HR PRN Nausea And Vomiting Sertraline HCl 100 mg 04/29/23 17:30 Sertraline 100 Mg Tab PO W/SUPPER [facility] Sildenafil Citrate 20 mg 04/29/23 13:36 Sildenafil 20 Mg Tab PO DIRECTED PRN E.D. Intake and Output 04/28/23 04/29/23 04/29/23 22:59 06:59 14:59 Other: Weight 106.141 kg Patient Weight 04/30/23 06:59 Weight 106.141 kg 04/29/23 10:14 04/29/23 10:14
[2023-04-30 10:32] VITALS: PULSE 69
--- NOTE | 2023-04-30 11:31 | P.DS ---
Providers Date of admission: 04/29/23 13:26 Expected date of discharge: 04/30/23 Attending physician: Shalom Salvador MD Consults: 04/29/23 13:34 Consult Physician Urgent Consulting Provider: Zechariah Lr Consult Reason/Comments: Chest pain Do you want consulting provider notified?: Yes Primary care physician: [facility] Course: 57 year old M with PMH of COVID PNA, history of MS, HTN, Pulmonary HTN, Depression and Obesity presents to the ED. He reports chest pain, left sided, constant, described as heaviness and tight, non radiating over the past 2-3 days. Chest pain is not related to exertion, position or deep inspiration. He reports SOB that has been ongoing since his previous hospitalization for COVID PNA in 2019. Today, he reported a frontal headache and sore throat. He went to his PCP who did an EKG which was abnormal, thus told to come to the ED. In the ED he underwent extensive evaluation. Vital signs stable. CBC lymphocyte count 0.6. Coag panel within normal limits. CMP Cr 1.51, glu 128, ALT 58, T. protein 6.2. Amylase 97. Lipase 659. COVID 19 +. CXR no acute process. EKG with sinus rhythm, incomplete RBBB with concerns for biphasic T waves in V5 and V6.. Patient is admitted for chest pain, rule out ACS, Cardiology evaluation. Troponins < 0.012, 0.013, < 0.012. Echo EF 55-60% with dilated LA and RV. D-Dimer elevated, V/Q scan low probability of PE. Cardiology consulted recommends outpatient follow up for stress test. Prescribed Paxlovid for COVID infection. Patient is advised to take one tablet of Nirmatrelvir along with one tablet of the Ritonavir twice a day for 5 days. (Prescription was not renally dosed). Patient and partner verbalized understanding of the plan. Patient was seen and examined. General: non toxic, no distress, appears at stated age Derm: warm, dry Head: atraumatic, normocephalic, symmetric Eyes: EOMI, no lid lag, anicteric sclera Mouth: no lip lesion, mucus membranes moist Cardiovascular: S1S2 reg, no murmur Lungs: CTA bilateral, no rhonchi, no rales , no accessory muscle use Ext: no gross muscle atrophy, no edema, no contractures Neuro: no focal neuro deficits Psych: Alert, oriented, appropriate affect Discharge Diagnosis: Chest pain Elevated D-Dimer COVID 19 Elevated lipase CKD Chronic conditions: HTN, Pulmonary HTN, Depression and Obesity This complex discharge took 35 minutes to complete. Patient Condition at Discharge: Stable Plan - Discharge Summary Discharge Rx Participant: No New Discharge Prescriptions: New Nirmatrelvir/Ritonavir [Paxlovid 300-100 mg Dose Pack] 1 each PO DIRECTED #1 each Aspirin 81 mg PO DAILY #30 tab Continue Simvastatin [Zocor] 20 mg PO W/SUPPER Acetaminophen Tab [Tylenol] 1,000 mg PO Q6HR PRN PRN Reason: Fever And/ Or Pain Sildenafil [Revatio] 20 mg PO DIRECTED PRN PRN Reason: E.D./BP Sertraline [Zoloft] 100 mg PO W/SUPPER lisinopriL [Zestril] 20 mg PO BID Tirzepatide [Zepbound] 5 mg SQ TH Discharge Medication List Simvastatin [Zocor] 20 mg PO W/SUPPER 04/01/20 [History] Acetaminophen Tab [Tylenol] 1,000 mg PO Q6HR PRN 04/29/23 [History] Nirmatrelvir/Ritonavir [Paxlovid 300-100 mg Dose Pack] 1 each PO DIRECTED #1 each 04/29/23 [Rx] Sertraline [Zoloft] 100 mg PO W/SUPPER 04/29/23 [History] Sildenafil [Revatio] 20 mg PO DIRECTED PRN 04/29/23 [History] Tirzepatide [Zepbound] 5 mg SQ TH 04/29/23 [History] lisinopriL [Zestril] 20 mg PO BID 04/29/23 [History] Aspirin 81 mg PO DAILY #30 tab 04/30/23 [Rx] Follow up Appointment(s)/Referral(s): Valente Taylor MD [Primary Care Provider] - 1-2 days Lloyd Glass MD [STAFF PHYSICIAN] - 05/11/23 4:30 pm Activity/Diet/Wound Care/Special Instructions: Take one tablet of the Nirmatrelvir along with one tablet of the Ritonavir twice a day for 5 days. Discharge Disposition: HOME SELF-CARE
== END 2023-04-30 11:40 | disposition home or self-care (01) ==
LOC: EC 09:48 → 6NMEDSUR 13:26
PROVIDERS: ADMIT Student in an Organized Health Care Education/Training Program; ATTEND Student in an Organized Health Care Education/Training Program
DX: U07.1 COVID-19 (principal); R94.31 Abnormal electrocardiogram [ECG] [EKG]; F43.10 Post-traumatic stress disorder, unspecified; J45.909 Unspecified asthma, uncomplicated; I25.2 Old myocardial infarction; E66.9 Obesity, unspecified; I12.9 Hypertensive chronic kidney disease with stage 1 through stage 4 chronic kidney disease, or unspecified chronic kidney disease; N18.9 Chronic kidney disease, unspecified; F32.A Depression, unspecified; I27.20 Pulmonary hypertension, unspecified; E78.5 Hyperlipidemia, unspecified; I25.10 Atherosclerotic heart disease of native coronary artery without angina pectoris; I45.10 Unspecified right bundle-branch block; N17.9 Acute kidney failure, unspecified; Z86.16 Personal history of COVID-19; Z88.5 Allergy status to narcotic agent; Z79.899 Other long term (current) drug therapy; Z82.49 Family history of ischemic heart disease and other diseases of the circulatory system; Z87.01 Personal history of pneumonia (recurrent)
CPT/HCPCS: 96360; 96361; 96372; 99285; 36415; 93005; 93306; 85379; 80053; 80048; 82150; 83690; 83735; 84484; 85025; 85610; 85730; 87636; 71046; 78580; G0378 ×2; A9540; J1650; J8540

== ENCOUNTER → 2023-07-23 | Outpatient (CLI) | payer BC ==
--- NOTE | 2023-07-23 09:56 | CT ---
EXAMINATION TYPE: CT brain wo con CT DLP: 1195 mGycm, Automated exposure control for dose reduction was used. DATE OF EXAM: 07/23/2023 9:00 AM COMPARISON: MRI 12/09/2021. CLINICAL INDICATION:Male, 57 years old with history of R41.3 OTHER AMNESIA, memory loss issues x few months TECHNIQUE: Brain: Axial CT images of the brain were obtained with coronal and sagittal reformats created and rev iewed. Contrast used: None. Oral contrast used: None. FINDINGS: Brain: Extra-axial spaces: No abnormal extra-axial fluid collections. Ventricular system: Within normal limits Cerebral parenchyma: No acute intraparenchymal hemorrhage or mass effect. The randolph-white junction is well differentiated. Cerebellum: Unremarkable. Mass effect: No evidence of midline shift. Intracranial vasculature: unremarkable Soft tissues: Normal. Calvarium/osseous structures: No depressed skull fracture. Paranasal sinuses and mastoid air cells: Mild scattered paranasal sinus disease. Visualized orbits: Orbital contents are intact. IMPRESSION: No acute intracranial process.
--- NOTE | 2023-07-23 20:14 | US ---
EXAMINATION TYPE: US carotid duplex BILAT DATE OF EXAM: 07/23/2023 COMPARISON: Carotid ultrasound 06/01/2015 CLINICAL INDICATION: Male, 57 years old with history of R413 AMNESIA POOR SHORT TERM MEMORY; Patient states he will suddenly become alert and not know where he is at. HTN- controlled with meds. TECHNIQUE: Carotid duplex ultrasound examination. Indirect Doppler criteria was utilized. FINDINGS: EXAM MEASUREMENTS: RIGHT: Peak Systolic Velocity (PSV) cm/sec ----- Right CCA: 113.0 ----- Right ICA: 79.1 ----- Right ECA: 186.0 ICA/CCA ratio: 0.7 RIGHT: End Diastole cm/sec ----- Right CCA: 15.2 ----- Right ICA: 11.0 ----- Right ECA: 16.2 LEFT: Peak Systolic Velocity (PSV) cm/sec ----- Left CCA: 93.5 ----- Left ICA: 110.0 ----- Left ECA: 153.0 ICA/CCA ratio: 1.2 LEFT: End Diastole cm/sec ----- Left CCA: 13.9 ----- Left ICA: 22.1 ----- Left ECA: 1.2 VERTEBRALS (direction of flow): Right Vertebral: Antegrade Left Vertebral: Antegrade Rhythm: Normal LEGAL RECEPTIONIST NOTES: No plaque or wall thickening. Elevated bilateral ECA velocities and proximal CCA. IMPRESSION: No ultrasound evidence for hemodynamically significant stenosis of the visualized bilateral carotid a rterial systems. Criteria for Assigning % of Stenosis / Diameter reduction (Estimation based on the indirect measurements of the internal carotid artery velocities (ICA PSV). 1. Normal (no stenosis)=ICA PSV < 125 cm/s: ratio < 2.0: ICA EDV<40 cm/s. 2. Less than 50% stenosis=ICA PSV < 125 cm/s: ratio < 2.0: ICA EDV<40 cm/s. 3. 50 to 69% stenosis=ICA PSV of 125 to 230 cm/s: ration 2.0 ? 4.0: ICA EDV 40-100 cm/s. 4. Greater than 70% stenosis to near occlusion= ICA PSV > 230 cm/s: ratio > 4.0: ICA EDV > 100 cm/s. 5. Near occlusion= ICA PSV velocities may be low or undetectable: variable ratio and ICA EDV. 6. Total occlusion=unable to detect flow.
== END | disposition home or self-care (01) ==
LOC: RADCTMAIN 08:42
PROVIDERS: ATTEND Family Medicine
DX: R41.3 Other amnesia (principal)
CPT/HCPCS: 70450; 93880

== ENCOUNTER → 2024-05-30 | Outpatient (CLI) | payer OTHER ==
--- NOTE | 2024-05-30 12:06 | MR ---
EXAMINATION TYPE: MR lumbar spine wo con DATE OF EXAM: 05/30/2024 COMPARISON: CT abdomen and pelvis September 03, 2022 HISTORY: Chronic lower back pain. TECHNIQUE: Multiplanar, multisequence imaging of the lumbar spine is performed without IV contrast. FINDINGS: Sagittal images of the lumbar spine show vertebral body heights and alignment to appear sta ble and satisfactory. There is persistent disc desiccation and moderate to advanced disc space narrow ing at the L5-S1 level. The conus medullaris is normal in position and signal ending superior L1 lev el. Large osseous hemangioma involving the L4 vertebra is present. Axial images show T12-L1 through L3-L4 levels to appear within normal limits. Axial images at L4-L5 level shows mild broad-based posterior disc protrusion mildly effaces the anter ior thecal sac along with mild to moderate facet arthropathy and ligament flavum hypertrophy effacing the posterior lateral thecal sac greater on the right. Bilateral neural foramina are patent. Axial images at the L5-S1 level show moderate broad disc bulge and mild facet arthropathy bilaterally . Spinal canal is Preserved. There is mild to moderate bilateral inferior neural foraminal narrowing more prominent on the right. Paraspinal muscle bulk is maintained. IMPRESSION: Some multilevel degenerative change of the lower lumbar spine is present as detailed [facility], , 05/30/2024 12:04 PM
--- NOTE | 2024-05-30 13:27 | US ---
EXAMINATION TYPE: US kidneys/renal and bladder DATE OF EXAM: 05/30/2024 COMPARISON: NONE CLINICAL INDICATION: Male, 58 years old with history of N18.31CHRONIC KIDNEY DISEASE, STAGE 3A; TECHNIQUE: Grayscale imaging of the bilateral kidneys and urinary bladder: FINDINGS: EXAM MEASUREMENTS: Right Kidney: 11.4x7.0x5.7 cm Left Kidney: 13.3x6.4x5.7 cm Post Void Residual Volume: 13.8 mL slightly limited exam due to overlying bowel Right Kidney: Increased vascularity Left Kidney: Increased vascularity Bladder: ?thickened wall: 0.5cm Post void wall: 0.8cm Bilateral Jets seen: Yes Normal Post Void Residual: Yes ?slightly enlarged calcified prostate: 4.7x6.2x5.4cm Mild concentric abnormal bladder wall thickening likely on the basis of outlet obstruction related to BPH. IMPRESSION: No hydronephrosis is seen bilaterally. [facility], , 05/30/2024 1:25 PM
== END | disposition home or self-care (01) ==
LOC: RADMRIMAIN 11:11
PROVIDERS: ATTEND Family Medicine
DX: M51.26 Other intervertebral disc displacement, lumbar region (principal); M51.369 Other intervertebral disc degeneration, lumbar region without mention of lumbar back pain or lower extremity pain; N18.32 Chronic kidney disease, stage 3b; M47.816 Spondylosis without myelopathy or radiculopathy, lumbar region; M99.71 Connective tissue and disc stenosis of intervertebral foramina of cervical region
CPT/HCPCS: 72148; 76770